=== PATIENT | male | born 1975 | race Caucasian/White ===

== ENCOUNTER 2019-03-28 16:24 | Emergency (ER) | payer OTHER ==
--- NOTE | 2019-03-28 16:44 | ER ---
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 Transition of ls4 care: patient was not received from another setting of care. Onset of symptoms was March 13, 2019. Risk Assessment: Do you want to hurt yourself or someone else? Patient reports no desire to harm self or others. Initial Sepsis Screen: Does the patient meet any 2 criteria? No. Patient's initial sepsis screen is negative. Does the patient have a suspected source of infection? No. Patient's initial sepsis screen is negative. Care prior to arrival: None. 16:32 Method Of Arrival: EMS: [facility] 16:32 Acuity: FREDERIC 4 ls4 Triage Assessment: 16:39 General: Appears in no apparent distress. uncomfortable, Behavior is calm, cooperative. ls4 Pain: Complains of pain in pelvis Pain currently is 8 out of 10 on a pain scale. Quality of pain is described as burning, tender, throbbing, Pain began. Neuro: No deficits noted. Cardiovascular: No deficits noted. Respiratory: No deficits noted. Derm: Skin is pink, warm \T\ dry. Rash noted that is draining pus, vesicular, on buttocks and pelvis. Musculoskeletal: No deficits noted. Historical: - Allergies: 16:37 Geodon; ls4 16:37 Haldol; ls4 16:37 Risperdal; ls4 - PMHx: 16:37 HIV; HERPES; SCHIZOAFFECTIVE; ls4 - PSHx: 16:37 Tonsillectomy; ls4 - Immunization history:: Adult Immunizations Last tetanus immunization: unknown. - Social history:: Smoking status: Patient uses tobacco products, smokes one-half pack cigarettes per day, Patient uses alcohol, weekly. - Ebola Screening: : Patient negative for fever greater than or equal to 101.5 degrees Fahrenheit, and additional compatible Ebola Virus Disease symptoms Patient denies exposure to infectious person Patient denies travel to an Ebola-affected area in the 21 days before illness onset No symptoms or risks identified at this time. Screenin:42 Abuse screen: Denies threats or abuse. Nutritional screening: No deficits noted. ls4 Tuberculosis screening: No symptoms or risk factors identified. Fall Risk None identified. Assessment: 16:41 General: Appears in no apparent distress. Neuro: No deficits noted. Cardiovascular: No ls4 deficits noted. Respiratory: No deficits noted. Derm: Skin is pink, warm \T\ dry. Rash noted that is draining pus, vesicular. Vital Signs: 16:39 BP 160 / 104; Pulse 78; Resp 16; Temp 98.6(O); Pulse Ox 99% on R/A; Pain 8/10; ls4 17:14 BP 148 / 78; Pulse 76; Resp 16; Pulse Ox 98% on R/A; Pain 6/10; ls4 ED Course: 16:31 Patient arrived in ED. ls4 16:32 Abner Amor NP is PHCP. pm1 16:32 Anibal Moreno MD is Attending Physician. pm1 16:34 Triage completed. ls4 16:39 Arm band placed on left wrist. Patient placed in an exam room. ls4 16:42 Patient has correct armband on for positive identification. Bed in low position. Call ls4 light in reach. Side rails up X 1. Verbal reassurance given. 16:42 No provider procedures requiring assistance completed. Patient did not have IV access ls4 during this emergency room visit. 16:46 Mee Barillas RN is Primary Nurse. ls4 Administered Medications: 17:02 Drug: [place] 5 mg-325 mg 1 tabs Route: PO; ls4 17:15 Follow up: Response: No adverse reaction; Marked relief of symptoms ls4 Outcome: 16:44 Discharge ordered by . pm1 17:14 Patient left the ED. ls4 17:14 Discharged to home ambulatory. ls4 17:14 Condition: good 17:14 Discharge instructions given to patient, Demonstrated understanding of instructions, follow-up care, medications, Prescriptions given X 3. Signatures: Abner Amor NP [employer]IN[employer] WELDER AND FABRICATOR pm1 Mee Barillas, RN RN ls4
--- NOTE | 2019-03-28 16:44 | EDPHYS ---
Physician Documentation [facility] Name: Bakari Mcintosh Age: 43 yrs Sex: Male : 1975 Arrival Date: 03/28/2019 Time: 16:31 Bed 24 Private MD: ED Physician Anibal Moreno HPI: 03/28 16:41 This 43 yrs old Male presents to ER via EMS with complaints of Rash. pm1 16:41 The patient's rash thought to be caused by an unknown cause. The rash is located on the pm1 groin. The rash can be described as vesicular, draining. Onset: The symptoms/episode began/occurred 1 month(s) ago. Associated signs and symptoms: Pertinent positives: painful lesions, Pertinent negatives: fever, itching. Severity of symptoms: in the emergency department the symptoms are worse. The patient has not experienced similar symptoms in the past, Patient reports history of herpes but has not had an outbreak before. Patient denies taking any medications for herpes. The patient has not recently seen a physician. Historical: - Allergies: 16:37 Geodon; ls4 16:37 Haldol; ls4 16:37 Risperdal; ls4 - PMHx: 16:37 HIV; HERPES; SCHIZOAFFECTIVE; ls4 - PSHx: 16:37 Tonsillectomy; ls4 - Immunization history:: Adult Immunizations Last tetanus immunization: unknown. - Social history:: Smoking status: Patient uses tobacco products, smokes one-half pack cigarettes per day, Patient uses alcohol, weekly. - Ebola Screening: : Patient negative for fever greater than or equal to 101.5 degrees Fahrenheit, and additional compatible Ebola Virus Disease symptoms Patient denies exposure to infectious person Patient denies travel to an Ebola-affected area in the 21 days before illness onset No symptoms or risks identified at this time. ROS: 16:41 Constitutional: Negative for fever, chills, and weight loss, Eyes: Negative for injury, pm1 pain, redness, and discharge, ENT: Negative for injury, pain, and discharge, Neck: Negative for injury, pain, and swelling, Cardiovascular: Negative for chest pain, palpitations, and edema, Respiratory: Negative for shortness of breath, cough, wheezing, and pleuritic chest pain, Abdomen/GI: Negative for abdominal pain, nausea, vomiting, diarrhea, and constipation, Back: Negative for injury and pain, : Negative for injury, bleeding, discharge, and swelling, MS/Extremity: Negative for injury and deformity. 16:41 Skin: Positive for rash, of the groin. Exam: 16:41 Constitutional: This is a well developed, well nourished patient who is awake, alert, pm1 and in no acute distress. Head/Face: Normocephalic, atraumatic. Eyes: Pupils equal round and reactive to light, extra-ocular motions intact. Lids and lashes normal. Conjunctiva and sclera are non-icteric and not injected. Cornea within normal limits. Periorbital areas with no swelling, redness, or edema. ENT: Nares patent. No nasal discharge, no septal abnormalities noted. Tympanic membranes are normal and external auditory canals are clear. Oropharynx with no redness, swelling, or masses, exudates, or evidence of obstruction, uvula midline. Mucous membranes moist. Neck: Trachea midline, no thyromegaly or masses palpated, and no cervical lymphadenopathy. Supple, full range of motion without nuchal rigidity, or vertebral point tenderness. No Meningismus. Chest/axilla: Normal chest wall appearance and motion. Nontender with no deformity. No lesions are appreciated. Cardiovascular: Regular rate and rhythm with a normal S1 and S2. No gallops, murmurs, or rubs. Normal PMI, no JVD. No pulse deficits. Respiratory: Lungs have equal breath sounds bilaterally, clear to auscultation and percussion. No rales, rhonchi or wheezes noted. No increased work of breathing, no retractions or nasal flaring. Abdomen/GI: Soft, non-tender, with normal bowel sounds. No distension or tympany. No guarding or rebound. No evidence of tenderness throughout. Back: No spinal tenderness. No costovertebral tenderness. Full range of motion. 16:41 MS/ Extremity: Pulses equal, no cyanosis. Neurovascular intact. Full, normal range of motion. 16:41 : Male external genitalia: lesion, of the groin, that is draining, painful, multiple vesicular lesions throughout the groin area. 16:41 Neuro: Orientation: is normal, Motor: is normal, moves all fours, Gait: is steady, at a normal pace, without difficulty. Vital Signs: 16:39 BP 160 / 104; Pulse 78; Resp 16; Temp 98.6(O); Pulse Ox 99% on R/A; Pain 8/10; ls4 17:14 BP 148 / 78; Pulse 76; Resp 16; Pulse Ox 98% on R/A; Pain 6/10; ls4 MDM: 16:35 Patient medically screened. pm1 16:41 Data reviewed: vital signs. Data interpreted: Pulse oximetry: on room air is 99 %. pm1 Interpretation: normal. Counseling: I had a detailed discussion with the patient and/or guardian regarding: the historical points, exam findings, and any diagnostic results supporting the discharge/admit diagnosis, the need for outpatient follow up, a family practitioner, to return to the emergency department if symptoms worsen or persist or if there are any questions or concerns that arise at home. 16:41 ED course: Patient denies prior herpes lesions despite history of herpes. Patient does pm1 not take any medications for herpes. Therefore I will give the patient Valtrex for initial episode. Administered Medications: 17:02 Drug: [place] 5 mg-325 mg 1 tabs Route: PO; ls4 17:15 Follow up: Response: No adverse reaction; Marked relief of symptoms ls4 Disposition: 17:38 Co-signature as Attending Physician, Anibal Moreno MD. rn Disposition: 03/28/19 16:44 Discharged to Home. 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 - Condition is Stable. - Discharge Instructions: Genital Herpes, Sexually Transmitted Disease. - Prescriptions for Valtrex 1 g Oral Tablet - take 1 tablet by ORAL route every 12 hours for 10 days; 20 tablet. Bactrim DS 800- 160 mg Oral Tablet - take 1 tablet by ORAL route every 12 hours for 10 days; 20 tablet. Tylenol- Codeine #3 300-30 mg Oral Tablet - take 2 tablets by ORAL route every 6 hours As needed; 20 tablet. - Medication Reconciliation Form, Thank You Letter, Antibiotic Education, Prescription Opioid Use form. - Follow up: Emergency Department; When: As needed; Reason: Worsening of condition. Follow up: Private Physician; When: 2 - 3 days; Reason: Recheck today's complaints, Continuance of care, Re-evaluation by your physician. - Problem is new. - Symptoms have improved. Signatures: Anibal Moreno MD MD rn Abner Amor NP [employer]WD[employer] MACHINE OPERATOR pm1 Mee Barillas RN RN ls4 Corrections: (The following items were deleted from the chart) 17:14 16:44 03/28/2019 16:44 Discharged to Home. Impression: Herpesviral infection of other ls4 male genital organs. Condition is Stable. Forms are Medication Reconciliation Form, Thank You Letter, Antibiotic Education, Prescription Opioid Use. Follow up: Emergency Department; When: As needed; Reason: Worsening of condition. Follow up: Private Physician; When: 2 - 3 days; Reason: Recheck today's complaints, Continuance of care, Re-evaluation by your physician. Problem is new. Symptoms have improved. pm1
[2019-03-28] MEDS ORDERED: HYDROCODONE/APAP 5/325 MG TAB ONE (17:11)
== END 2019-03-28 17:14 | disposition home or self-care (01) ==
LOC: ER 16:24
DX: A60.02 Herpesviral infection of other male genital organs (principal); F25.9 Schizoaffective disorder, unspecified; F17.210 Nicotine dependence, cigarettes, uncomplicated
CPT/HCPCS: 99283

== ENCOUNTER 2019-05-30 09:20 | Emergency (ER) | payer OTHER ==
--- OUTSIDE RECORDS SUMMARY | 2019-05-30 09:23 | XMS REPORT | Clinical Summary ---
:1975 Author Organization [facility] Address [address] [place] [id number] Care Team Providers Name Role Phone Unavailable Primary Care Provider Unavailable Allergies Active Allergy Reactions Severity Noted Date Comments No Known Allergies 08/12/2010 Medications Medication Sig Dispensed Refills Start Date End Date Status trifluoperazine Take 5 mg by 0 Active (STELAZINE) 5 mg tablet mouth 2 times daily. 1 by mouth 2 times daily benztropine (COGENTIN) Take 2 mg by 0 Active 2 mg tablet mouth 2 times daily. 1 by mouth 2 times daily loratadine (CLARITIN) Take 10 mg by 0 Active 10 mg tablet mouth daily. 1 by mouth daily as needed for allergies Active Problems Problem Noted Date Lump or mass in breast _ lt 09/09/2010 Refraction error 09/09/2010 Obesity 09/09/2010 Nicotine addiction 09/09/2010 Tattoo 09/09/2010 Acne 09/09/2010 Health maintenance examination 09/09/2010 Overview: PSA\Rectal Exam : 08/23 refused FOBT (50 + Annual):na Cholesterol (20 + every 5 yrs):ordered HgbA1C : na Microalbumin: na Last Td/Dtap: ordered Flu Vaccine (Annual): 07/24 Pneumovax: na Last PPD (yearly 1-35): 06/23 Diabetic Foot Exam (Annual):na Diabetic Eye Exam (Annual):na EKG (Over 40 yrs Old) None Schizo affective schizophrenia Bipolar disorder Encounters Date Type Specialty Care Team Description 11/26/2018 Emergency Emergency Medicine 11/26/2018 Travel after 05/29/2018 Immunizations Name Administration Dates Next Due Influenza Vaccine 08/04/2010 PPD 12/28/2011 Tdap Tetanus, diphtheria, acellular pertussis Vaccine 09/09/2010 Family History Medical History Relation Name Comments Unknown Fam Hx unknown Relation Name Status Comments Social History Tobacco Use Types Packs/Day Years Used Date Current Every Day Smoker Cigarettes 1 Alcohol Use Drinks/Week oz/Week Comments No Sex Assigned at Date Recorded Not on file Job Start Date Occupation Industry Not on file Not on file Not on file Travel History Travel Start Travel End No recent travel history available. Last Filed Vital Signs Vital Sign Reading Time Taken Comments Blood Pressure 160/97 11/26/2018 8:24 AM SENIOR QUANTITY SURVEYOR Pulse 74 11/26/2018 8:24 AM SENIOR QUANTITY SURVEYOR Temperature 36.4 C (97.5 F) 11/26/2018 8:24 AM SENIOR QUANTITY SURVEYOR Respiratory Rate 20 11/26/2018 8:24 AM SENIOR QUANTITY SURVEYOR Oxygen Saturation 99% 11/26/2018 8:24 AM SENIOR QUANTITY SURVEYOR Inhaled Oxygen Concentration - - Weight - - Height - - Body Mass Index - - Plan of Treatment Health Maintenance Due Date Last Done Comments IMM Influenza Seasonal Aug to January (>/=19 yrs) 08/14/2019 Results Not on fileafter 05/29/2018 Insurance Payer Benefit Plan / Subscriber ID Effective Phone Address Type Group Dates [employer] xxxxxxxx 2018-Prese [phone] [address] [facility] [address] [place] [address] MEDICARE MEDICARE PART A xxxxxxxxxx 05/14/2010-11/13 [phone] [address] [place] [address] [place] MED[place] [id number] QUALIFIED xxxxxxxxx 2011-Prese [phone] [address] [place] [id number] [place] [address]
--- OUTSIDE RECORDS SUMMARY | 2019-05-30 09:24 | XMS REPORT | Continuity of Care Document ---
:1975 Author Organization [employer] Care Team Providers Name Role Phone [employer] Unavailable Unavailable Problems Problem Status Onset Classification Date Comments Source Date Reported Unspecified Active Diagnosis 11/23/2016 Rosalino Gramajo fracture of Lock shaft of humerus, right arm, initial encounter for closed fracture Unspecified Active Diagnosis 11/23/2016 Rosalino C fracture of Lock shaft of humerus, left arm, initial encounter for closed fracture Essential Active Problem 11/23/2016 Rosalino Gramajo hypertension Lock Psychosis, Active Diagnosis 11/23/2016 Rosalion C unspecified Lock psychosis type Medications Medication Details Route Status Patient Ordering Order Source Instructions Provider Date Atenolol 1 tablet Orally Active 25 MG Orally Lock 10/26/20 Rosalino Gramajo Once a day 16 Lock Allergies, Adverse Reactions, Alerts Substance Category Reaction Severity Reaction Status Date Comments Source type Reported N.K.D.A. Adverse Info Not Adverse Active Rosalino Reaction Available Reaction 6 C Lock Immunizations No Data Provided for This Section Results No Data Provided for This Section Pathology Reports No Data Provided for This Section Diagnostic Reports No Data Provided for This Section Consultation Notes No Data Provided for This Section Discharge Summaries No Data Provided for This Section History and Physicals No Data Provided for This Section Vital Signs Vital Sign Value Date Comments Source Weight 201.2 10/26/2016 Rosalino Martinez Height 72 10/26/2016 Rosalino C Michelle Heart Rate 84 10/26/2016 Rosalino C Michelle Diastolic (mm Hg) 100 10/26/2016 Rosalino C Lock Systolic (mm Hg) 156 10/26/2016 Rosalino Martinez Encounters Location Location Encounter Encounter Reason Attending ADM DC Status Source Details Type Number For Provider Date Date Visit Rosalino Doherty FX FOREAMRS [id number] 10/26 10/26 Rosalino Martinez MD [id number] /2015 Rox Martinez [id number] Procedures No Data Provided for This Section Assessment and Plan No Data Provided for This Section Plan of Care No Data Provided for This Section Social History Social History Date Source Social History ElementQualifiersDate Reported 10/26/2016 Rosalino Martinez Tobacco Use: . Are you a: current smoker Oct 26, 2016 Use of recreational / street drugs? . Answer: No Oct 26, 2016 Do you drink alcohol? . Status: No Oct 26, 2016 Family History Value Date Source QualifierDescriptionCommentDate Reported 11/23/2016 Rosalino Martinez Maternal Grandmother Comment not available Oct 26, 2016 Paternal Grandmother Comment not available Oct 26, 2016 Siblings Comment not available Oct 26, 2016 Maternal Grandfather Comment not available Oct 26, 2016 Children Comment not available Oct 26, 2016 Family Hx of unknown Comment not available Oct 26, 2016 Father Comment not available Oct 26, 2016 Paternal Grandfather Comment not available Oct 26, 2016 Mother Comment not available Oct 26, 2016 Other: Comment not available Oct 26, 2016 Advance Directives No Data Provided for This Section Functional Status No Data Provided for This Section
--- OUTSIDE RECORDS SUMMARY | 2019-05-30 09:24 | XMS REPORT ---
:1975 Author [facility] Address [address] [place] [address] Care Team Providers Name Role Phone Unavailable Unavailable Unavailable Payers Payer Name Policy Type Policy Number Effective Date Expiration Date Problems This patient has no known problems. Allergies, Adverse Reactions, Alerts Allergy Name Allergy Status Severity Reaction(s) Onset Inactive Treating Comments Type Date Date Clinician grace RYAN Active [place] 2016-03 00:00:0 0 Medications This patient has no known medications. Encounters Start End Encounter Admission Attending Care Care Encounter Date/Time Date/Time Type Type Clinicians Facility Department ID 2018-11-26 2018-11-26 Emergency [facility] [id number] 08:23:00 08:23:00
--- OUTSIDE RECORDS SUMMARY | 2019-05-30 09:24 | XMS REPORT | Clinical Summary ---
:1975 Author Organization [facility] Address [address] [place] [address] Care Team Providers Name Role Phone Asked, No Pcp Primary Care Provider Unavailable Allergies Active Allergy Reactions Severity Noted Date Comments Ziprasidone Hcl Other (See Comments) 01/24/2017 Blurred Vision Haloperidol Other (See Comments) 01/24/2017 Muscle tightness Risperidone 01/24/2017 Medications Medication Sig Dispensed Refills Start Date End Date Status budesonide Take 2 mL (0.5 mg 60 mL 0 01/19/2019 02/18/2019 (PULMICORT) 0.5 mg/2 total) by mL nebulizer nebulization once solution daily for 30 days. chlorproMAZINE Take 1 tablet (50 60 tablet 0 01/18/2019 02/17/2019 (THORAZINE) 50 MG mg total) by mouth tabletIndications: 2 (two) times a Dyspnea, unspecified day for 30 days. type ipratropium-albutero Take 3 mL by 360 mL 0 01/18/2019 02/17/2019 l (DUO-NEB) 0.5-2.5 nebulization every mg/mL 6 (six) hours for nebulizerIndications 30 days. : Dyspnea, unspecified type nystatin Take 10 mL by 473 mL 0 01/18/2019 02/01/2019 (MYCOSTATIN) 100,000 mouth 4 (four) unit/mL suspension times a day for 14 days. Swish in mouth valACYclovir Take 1 tablet 24 tablet 0 01/18/2019 01/26/2019 (VALTREX) 1000 MG (1,000 mg total) tablet by mouth 3 (three) times a day before meals for 8 days. Active Problems Problem Noted Date HIV (human immunodeficiency virus infection) 01/16/2019 Schizophrenia 01/16/2019 Dyspnea 01/15/2019 Rash 01/15/2019 Encounters Date Type Specialty Care Team Description 01/26/2019 Intake Access N/A 01/20/2019 Emergency Emergency Medicine Eapriscila, Suicidal ideation MD Mayela (Primary Dx) 01/15/2019 - Hospital Encounter General Internal Javan Brown Dyspnea, unspecified type (Primary Dx); 01/18/2019 Medicine MD Murray HIV (human immunodeficiency virus infection) ([facility]); Hollie Vieira Cough; MD Randi Rash; Dehydration; Anemia, unspecified type 01/15/2019 Intake Access N/A after 05/29/2018 Social History Tobacco Use Types Packs/Day Years Used Date Current Every Day Smoker Alcohol Use Drinks/Week oz/Week Comments No Sex Assigned at Date Recorded Not on file Job Start Date Occupation Industry Not on file Not on file Not on file Travel History Travel Start Travel End No recent travel history available. Last Filed Vital Signs Vital Sign Reading Time Taken Blood Pressure 146/93 01/19/2019 11:47 PM [employer] Pulse 68 01/19/2019 11:47 PM [employer] Temperature 36.4 C (97.6 F) 01/19/2019 11:47 PM [employer] Respiratory Rate 16 01/19/2019 11:47 PM [employer] Oxygen Saturation 95% 01/19/2019 11:47 PM [employer] Inhaled Oxygen Concentration - - Weight 73.7 kg (162 lb 8 oz) 01/15/2019 10:41 PM [employer] Height 180.3 cm (5' 11") 01/19/2019 11:44 PM [employer] Body Mass Index 22.66 01/15/2019 1:47 PM [employer] Plan of Treatment Health Maintenance Due Date Last Done Comments INFLUENZA VACCINE 06/14/2019 Procedures Procedure Name Priority Date/Time Associated Comments Diagnosis URINE CULTURE STAT 01/20/2019 12:36 Results for this AM [employer] procedure are in the results section. ESTIMATED GFR STAT 01/20/2019 12:23 Results for this AM [employer] procedure are in the results section. URINALYSIS SCREEN AND STAT 01/20/2019 12:23 Results for this MICROSCOPY, WITH REFLEX AM [employer] procedure are in TO CULTURE the results section. URINE DRUGS OF ABUSE STAT 01/20/2019 12:23 Results for this SCREEN AM [employer] procedure are in the results section. SALICYLATE LEVEL STAT 01/20/2019 12:23 Results for this AM [employer] procedure are in the results section. ACETAMINOPHEN LEVEL STAT 01/20/2019 12:23 Results for this AM [employer] procedure are in the results section. ALCOHOL LEVEL, BLOOD STAT 01/20/2019 12:23 Results for this AM [employer] procedure are in the results section. T4, FREE STAT 01/20/2019 12:23 Results for this AM [employer] procedure are in the results section. THYROID STIMULATING STAT 01/20/2019 12:23 Results for this HORMONE AM [employer] procedure are in the results section. COMPREHENSIVE METABOLIC STAT 01/20/2019 12:23 Results for this PANEL AM [employer] procedure are in the results section. HC COMPLETE BLD COUNT STAT 01/20/2019 12:23 Results for this W/AUTO DIFF AM [employer] procedure are in the results section. HC COMPLETE BLD COUNT Routine 01/18/2019 5:30 Results for this W/AUTO DIFF AM [employer] procedure are in the results section. ESTIMATED GFR Routine 01/18/2019 12:00 Results for this AM [employer] procedure are in the results section. BASIC METABOLIC PANEL Routine 01/18/2019 12:00 Results for this AM [employer] procedure are in the results section. HERPES SIMPLEX VIRUS BY Routine 01/17/2019 5:00 Results for this PCR PM [employer] procedure are in the results section. AFB STAIN Routine 01/17/2019 1:20 Results for this PM [employer] procedure are in the results section. CRYPTOCOCCAL ANTIGEN Routine 01/17/2019 1:05 Results for this SCREEN PM [employer] procedure are in the results section. AFB CULTURE Routine 01/17/2019 12:20 Results for this PM [employer] procedure are in the results section. TB IN-TUBE QUANTIFERON Routine 01/17/2019 4:30 Results for this PLUS AM [employer] procedure are in the results section. ESTIMATED GFR Routine 01/17/2019 4:30 Results for this AM [employer] procedure are in the results section. HC COMPLETE BLD COUNT Routine 01/17/2019 4:30 Results for this W/AUTO DIFF AM [employer] procedure are in the results section. BASIC METABOLIC PANEL Routine 01/17/2019 4:30 Results for this AM [employer] procedure are in the results section. AFB STAIN Routine 01/16/2019 12:13 Results for this PM [employer] procedure are in the results section. GRAM STAIN Routine 01/16/2019 12:13 Results for this PM [employer] procedure are in the results section. SPUTUM CULTURE Routine 01/16/2019 12:13 Results for this PM [employer] procedure are in the results section. AFB CULTURE Routine 01/16/2019 11:13 Results for this AM [employer] procedure are in the results section. URINE DRUGS OF ABUSE Routine 01/16/2019 8:25 Results for this SCREEN AM [employer] procedure are in the results section. ESTIMATED GFR Routine 01/16/2019 5:08 Results for this AM [employer] procedure are in the results section. HC COMPLETE BLD COUNT Routine 01/16/2019 5:08 Results for this W/AUTO DIFF AM [employer] procedure are in the results section. BASIC METABOLIC PANEL Routine 01/16/2019 5:08 Results for this AM [employer] procedure are in the results section. HEMOGLOBIN A1C Routine 01/16/2019 5:08 Results for this AM [employer] procedure are in the results section. TROPONIN Timed 01/16/2019 12:48 Results for this AM [employer] procedure are in the results section. CYTOMEGALOVIRUS BY PCR Routine 01/16/2019 12:31 Results for this AM [employer] procedure are in the results section. POC GLUCOSE Routine 01/15/2019 11:55 Results for this PM [employer] procedure are in the results section. HC COMPLETE BLD COUNT Timed 01/15/2019 10:03 Results for this W/AUTO DIFF PM [employer] procedure are in the results section. B NATRIURETIC PEPTIDE Timed 01/15/2019 10:03 Results for this PM [employer] procedure are in the results section. CYTOMEGALOVIRUS AB, IGM Routine 01/15/2019 8:48 Results for this PM [employer] procedure are in the results section. CYTOMEGALOVIRUS AB, IGG Routine 01/15/2019 8:48 Results for this PM [employer] procedure are in the results section. HEPATITIS C ANTIBODY Routine 01/15/2019 8:38 Results for this PM [employer] procedure are in the results section. HEPATITIS B CORE Routine 01/15/2019 8:37 Results for this ANTIBODY TOTAL PM [employer] procedure are in the results section. HEPATITIS B SURFACE Routine 01/15/2019 8:37 Results for this ANTIBODY PM [employer] procedure are in the results section. HEPATITIS B SURFACE Routine 01/15/2019 8:37 Results for this ANTIGEN PM [employer] procedure are in the results section. XR CHEST 1 VW PORTABLE STAT 01/15/2019 8:28 Results for this PM [employer] procedure are in the results section. ESTIMATED GFR Routine 01/15/2019 8:27 Results for this PM [employer] procedure are in the results section. COMPREHENSIVE METABOLIC Routine 01/15/2019 8:27 Results for this PANEL PM [employer] procedure are in the results section. LDH Routine 01/15/2019 8:27 Results for this PM [employer] procedure are in the results section. SYPHILIS TREPONEMAL IGG Routine 01/15/2019 8:25 Results for this PM [employer] procedure are in the results section. VARICELLA ZOSTER BY PCR Routine 01/15/2019 8:12 Results for this PM [employer] procedure are in the results section. ESTIMATED GFR Timed 01/15/2019 8:10 Results for this PM [employer] procedure are in the results section. MAGNESIUM LEVEL Timed 01/15/2019 8:10 Results for this PM [employer] procedure are in the results section. COMPREHENSIVE METABOLIC Timed 01/15/2019 8:10 Results for this PANEL PM [employer] procedure are in the results section. PHOSPHORUS LEVEL Timed 01/15/2019 8:10 Results for this PM [employer] procedure are in the results section. LIPASE LEVEL Timed 01/15/2019 8:10 Results for this PM [employer] procedure are in the results section. HIV QUANTITATIVE BY PCR Routine 01/15/2019 8:10 Results for this PM [employer] procedure are in the results section. CD 4/8 SUBSET Routine 01/15/2019 8:10 Results for this PM [employer] procedure are in the results section. LACTIC ACID LEVEL Timed 01/15/2019 8:10 Results for this PM [employer] procedure are in the results section. TROPONIN Timed 01/15/2019 8:10 Results for this PM [employer] procedure are in the results section. CT CHEST W CONTRAST STAT 01/15/2019 6:01 Results for this ABDOMEN W CONTRAST PM [employer] procedure are in PELVIS W CONTRAST the results section. ECG 12-LEAD STAT 01/15/2019 4:57 Results for this PM [employer] procedure are in the results section. RESPIRATORY PATHOGEN Routine 01/15/2019 4:49 Results for this PANEL PM [employer] procedure are in the results section. BLOOD CULTURE, AEROBIC & Routine 01/15/2019 4:37 Results for this ANAEROBIC PM [employer] procedure are in the results section. HIV 1/2 AB STAT 01/15/2019 4:19 Results for this DIFFERENTIATION PM [employer] procedure are in the results section. MANUAL DIFFERENTIAL STAT 01/15/2019 4:19 Results for this PM [employer] procedure are in the results section. ESTIMATED GFR STAT 01/15/2019 4:19 Results for this PM [employer] procedure are in the results section. LACTIC ACID LEVEL Timed 01/15/2019 4:19 Results for this PM [employer] procedure are in the results section. TROPONIN STAT 01/15/2019 4:19 Results for this PM [employer] procedure are in the results section. B NATRIURETIC PEPTIDE STAT 01/15/2019 4:19 Results for this PM [employer] procedure are in the results section. HIV AG/AB COMBINATION STAT 01/15/2019 4:19 Results for this PM [employer] procedure are in the results section. SYPHILIS TREPONEMAL IGG STAT 01/15/2019 4:19 Results for this PM [employer] procedure are in the results section. COMPREHENSIVE METABOLIC STAT 01/15/2019 4:19 Results for this PANEL PM [employer] procedure are in the results section. CBC WITH PLATELET AND STAT 01/15/2019 4:19 Results for this DIFFERENTIAL PM [employer] procedure are in the results section. BLOOD CULTURE, AEROBIC & Routine 01/15/2019 4:19 Results for this ANAEROBIC PM [employer] procedure are in the results section. after 05/29/2018 Results Urine culture (01/20/2019 12:36 AM [employer]) Urine culture SEE COMMENTComment: [facility] Bacteriuria screen HOSPITAL negative. Specimen Performing Organization Address City/[facility] Phone Number [facility] DEPARTMENT OF PATHOLOGY AND [address] [place] [address] GENOMIC MEDIC[address] [address] Urinalysis screen and microscopy, with reflex to culture (01/20/2019 12:23 AM [employer]) Specimen site Clean catch [facility] Color, UA Straw [facility] Appearance, UA Clear [facility] Specific gravity, UA 1.014 1.001 - 1.035 [facility] pH, UA 6.0 5.0 - 8.5 [facility] Protein, UA Negative Negative [facility] Glucose, UA Negative Negative [facility] Ketones, UA Negative Negative [facility] Bilirubin, UA Negative Negative [facility] Blood, UA Negative Negative [facility] Nitrite, UA Negative Negative [facility] Urobilinogen, UA <2.0 <2.0 [facility] Leukocyte esterase, Negative Negative [facility] Epithelial cells, UA 1 /HPF [facility] WBC, UA <1 0 - 1 /HPF [facility] RBC, UA 1 0 - 5 /HPF [facility] Bacteria, UA Few None seen [facility] Yeast, UA None seen [facility] Yeast with None seen [facility] pseudohyphae, HOSPITAL Specimen Urine Performing Organization Address City/[facility]/Zipcode Phone Number [facility] DEPARTMENT OF PATHOLOGY AND [address] [place] [phone] [address] Estimated GFR (01/20/2019 12:23 AM [employer])Only the most recent of7 resultswithin the time period is included. Estimated GFR >=90 mL/min/1.73 [facility] Comment: HOSPITAL CatergoryUnitsInterpretation G1 >=90 Normal or high G2 60-89Mildly decreased D1m35-45Gqdshw to moderately decreased [id number] to severely decreased G4 15-29Severely decreased G5 <15Kidney failure The eGFR was calculated using the Chronic Kidney Disease Epidemiology Collaboration (CKD-EPI) equation. Interpretation is based on recommendations of the National Kidney Foundation-Kidney Disease Outcomes Quality Initiative (NKF-KDOQI) published in 2014. Specimen Plasma specimen Performing Organization Address City/[facility] Phone Number [facility] DEPARTMENT OF PATHOLOGY AND [address] [place] [phone] Urine drugs of abuse screen (01/20/2019 12:23 AM [employer])Only the most recent of2 resultswithin the time period is included. Amphetamine screen, Positive (A) [place] urine [facility] Barbiturate screen, Negative [place] urine [facility] Benzodiazepine Negative [place] screen, urine [facility] Cannabinoid screen, Negative [place] urine [facility] Cocaine screen, urine Positive (A) [facility] Methadone metabolite Negative [place] (EDDP), urine [facility] Opiates screen, urine Negative [facility] Oxycodone screen, Negative [place] urine [facility] Phencyclidine screen, Negative [place] urine [facility] Tricyclic screen, Negative [place] urine Comment: [facility] Drug screen minimum concentration of detectability HOSPITAL Zblbamelairp3885 ng/mL Barbiturates 200 ng/mL Svptzpmvufsmoik913 ng/mL Rsakblz350 ng/mL Yqcjddobq373 ng/mL Azhukmj258 ng/mL Smjyioiqw934 ng/mL Phencyclidine 25 ng/mL Rhivbknvltgf81 ng/mL Zsjokvvijd4490 ng/mL Results are from screening tests and should only be used for medical evaluation. Drug testing for legal purposes requires definitive (or confirmatory) testing methods, which are available upon request. Contact the laboratory if definitive testing is required. Specimen Urine Performing Organization Address City/State/Zipcode Phone Number [facility] DEPARTMENT OF PATHOLOGY AND [address] [place], [place] [id number] [place] [phone] CBC with platelet and differential (01/20/2019 12:23 AM [employer])Only the most recent of6 resultswithin the time period is included. WBC 12.47 (H) 4.50 - 11.00 [facility] k/uL HOSPITAL RBC 3.86 (L) 4.40 - 6.00 [facility] m/uL [facility] HGB 11.5 (L) 14.0 - 18.0 [facility] gdL [facility] HCT 35.6 (L) 41.0 - 51.0 % [facility] MCV 92.2 82.0 - 100.0 [facility] MCH 29.8 27.0 - 34.0 pg [facility] MCHC 32.3 31.0 - 37.0 [facility] RDW - SD 44.1 37.0 - 55.0 fL [facility] MPV 9.1 8.8 - 13.2 fL [facility] Platelet count 387 150 - 400 k/uL [facility] Nucleated RBC 0.00 /100 WBC [facility] Neutrophils 68.1 39.0 - 69.0 % [facility] Lymphocytes 22.0 (L) 25.0 - 45.0 % [facility] Monocytes 5.8 0.0 - 10.0 % [facility] Eosinophils 1.6 0.0 - 5.0 % [facility] Basophils 0.3 0.0 - 1.0 % [facility] Immature granulocytes 2.2 0.0 - 1.0 % [facility] (H)Comment: HOSPITAL "Immature granulocytes" (promyelocytes , myelocytes, metamyelocytes ) Specimen Blood Performing Organization Address City/State/Zipcode Phone Number [facility] DEPARTMENT OF PATHOLOGY AND [address] [place] [address] [address] Thyroid stimulating hormone (01/20/2019 12:23 AM [employer]) TSH 1.76 0.27 - 4.20 uIU/mL [facility] Specimen Plasma specimen Performing Organization Address [facility] Phone Number [facility] DEPARTMENT OF PATHOLOGY AND [address] [place] [phone] [place] [address] T4, free (01/20/2019 12:23 AM [employer]) T4, free 1.5 0.9 - 1.7 ng/dL [facility] Specimen Plasma specimen Performing Organization Address [facility] Phone Number [facility] DEPARTMENT OF PATHOLOGY AND [address] [place] [phone] [address] Alcohol level, blood (01/20/2019 12:23 AM [employer]) [facility] Signature Alcohol None Detected mg/dL [facility] Comment: HOSPITAL Normal None Detected Legal Intoxication in [place]80 mg/dL (0.08%) - Whole Blood Toxic Jblymsehcoxte312 mg/dL (0.2%) Potentially Ryjrm001 - 500 mg/dL (0.35 - 0.5%) Alcohol percent None Detected % [facility] Specimen Plasma specimen Performing Organization Address [facility] Phone Number [facility] DEPARTMENT OF PATHOLOGY AND [address] [place] [phone] [place] [phone] Acetaminophen level (01/20/2019 12:23 AM [employer]) Acetaminophen level <5.0 (L) 10.0 - 30.0 [facility] Comment: ug/mL HOSPITAL Therapeutic 10-30 ug/mL Possible Toxicity 150-200 ug/mL Probable Toxicity >200 ug/mL Specimen Plasma specimen Performing Organization Address [facility] Phone Number [facility] DEPARTMENT OF PATHOLOGY AND [address] [place] [phone] [address] Salicylate level (01/20/2019 12:23 AM [employer]) Salicylate <3.0 3.0 - 30.0 mg/dL [facility] Specimen Plasma specimen Performing Organization Address [facility] Phone Number [facility] DEPARTMENT OF PATHOLOGY AND [address] [place] [address] [place] [address] [place] [address] Comprehensive metabolic panel (01/20/2019 12:23 AM [employer])Only the most recent of4 resultswithin the time period is included. Sodium 135 135 - 148 [facility] mEq/L HOSPITAL Potassium 4.3 3.5 - 5.0 [facility] mEq/L [facility] Chloride 99 98 - 112 mEq/L [facility] CO2 26 24 - 31 mEq/L [facility] Anion gap 10@ANIO 7 - 15 mEq/L [facility] BUN 17 6 - 20 mg/dL [facility] Creatinine 0.75 0.70 - 1.20 [facility] mg/dL [facility] Glucose 97 65 - 99 mg/dL [facility] Calcium 10.0 8.3 - 10.2 [facility] mg/dL [facility] Protein 9.0 (H) 6.3 - 8.3 g/dL [facility] Comment: HOSPITAL 4.6-7.0 g/dL 1 week 4.4-7.6 g/dL 7 months-1year5.1-7.3 g/dL 1-2 years5.6-7.5 g/dL >3 years6.0-8.0 g/dL 18-150 6.3-8.3 g/dL Albumin 3.5 3.5 - 5.0 g/dL [facility] A/G ratio 0.6 (L) 0.7 - 3.8 [facility] Alkaline phosphatase 98 40 - 129 U/L [facility] AST 30 10 - 50 U/L [facility] ALT 27 5 - 50 U/L [facility] Total bilirubin <0.2 0.0 - 1.2 [facility] mg/dL [facility] Specimen Plasma specimen Performing Organization Address City/State/Zipcode Phone Number [facility] DEPARTMENT OF PATHOLOGY AND [address] [address] Basic metabolic panel (01/18/2019 12:00 AM [employer])Only the most recent of3 resultswithin the time period is included. Sodium 139 135 - 148 mEq/L [facility] Potassium 4.2 3.5 - 5.0 mEq/L [facility] Chloride 104 98 - 112 mEq/L [facility] CO2 25 24 - 31 mEq/L [facility] Anion gap 10@ANIO 7 - 15 mEq/L [facility] BUN 11 6 - 20 mg/dL [facility] Creatinine 0.76 0.70 - 1.20 mg/dL [facility] Glucose 97 65 - 99 mg/dL [facility] Calcium 8.6 8.3 - 10.2 mg/dL [facility] [facility] Specimen Plasma specimen Performing Organization Address City/[facility] Phone Number [facility] DEPARTMENT OF PATHOLOGY AND [address] [place] [address] Herpes simplex virus by PCR (01/17/2019 5:00 PM STRUCTURAL STEEL PAINTER) Pathologist [facility] Herpes virus, PCR Not-Detected Not-Detected [facility] Herpes virus, PCR See link below [facility] for PDF Lab HOSPITAL ReportComment: Specimen Performing Organization Address [facility] Phone Number [facility] DEPARTMENT OF PATHOLOGY AND [address] [place] [address] AFB stain (01/17/2019 1:20 PM STRUCTURAL STEEL PAINTER)Only the most recent of2 resultswithin the time period is included. Pathologist [facility] AFB stain No acid fast bacilli (AFB) seen. MICHAEL KAUR Comment: HOSPITAL Specimen Information Specimen Source: Sputum Specimen Site: Expectorated Specimen Sputum - Expectorated Performing Organization Address City/[facility] Phone Number [facility] DEPARTMENT OF PATHOLOGY AND [address] [place] [address] Cryptococcal antigen, screen (01/17/2019 1:05 PM STRUCTURAL STEEL PAINTER) Pathologist [facility] Cryptococcal Ag Negative - No Cryptococcus antigen detected. MICHAEL KAUR Comment: HOSPITAL Specimen Information Specimen Source: Serum Specimen Site: Not otherwise specified Specimen Serum - Not otherwise specified Performing Organization Address City/[facility] Phone Number [facility] DEPARTMENT OF PATHOLOGY AND [address] [place] [address] AFB culture (01/17/2019 12:20 PM STRUCTURAL STEEL PAINTER)Only the most recent of2 resultswithin the time period is included. AFB culture No growth after 6 weeks of incubation. [facility] isolate Comment: HOSPITAL Specimen Information Specimen Source: Sputum Specimen Site: Expectorated Specimen Sputum - Expectorated Performing Organization Address City/State/Zipcode Phone Number [facility] DEPARTMENT OF PATHOLOGY AND [address] [place] [address] GENOMIC MEDICINE [facility] [address] [place] [address] TB IN-TUBE Quantiferon plus (01/17/2019 4:30 AM STRUCTURAL STEEL PAINTER) Quantitative NIL 0.110 IU/mL [facility] Quantitative TB1 0.100 IU/mL [facility] Quantitative TB2 0.110 IU/mL [facility] Quantitative mitogen >10.000 IU/mL [facility] Quant TB1-NIL -0.010 IU/mL [facility] Quant TB2-NIL 0.000 IU/mL [facility] Quantitative >10.000 IU/mL [facility] mitogen-NIL REF LAB Qualitative Negative [facility] interpretation Comment: REF LAB Results are POSITIVE when either of the following conditions are met: 1.Nil <=8.0 AND TB1-Nil >=0.35 AND >=25% of Nil (TB2 is any value) or 2.Nil <=8.0 AND TB2-Nil >=0.35 AND >=25% of Nil (TB1 is any value) Results are NEGATIVE when all of the following conditions are met: 1.Nil <=8.0 2.TB1-Nil and TB2-Nil < 0.35 or [>=0.35 AND < 25% of Nil] 3.Mitogen-Nil >=0.50 Results are INDETERMINATE under either of the following conditions: 1a.Nil <=8.0 AND Mitogen-Nil < 0.50 AND 1b 1b.Both TB1-Nil AND TB2-Nil < 0.35 or [>=0.35 AND <25% of Nil] 2.Nil > 8.0 Warnings and Limitations 1)A negative QFT-Plus result does not preclude the possibility of M. tuberculosis infection or tuberculosis disease: False-negative results can be due to stage of infection (e.g., specimen obtained prior to the development of cellular immune response), co-morbid conditions that affect immune function, incorrect handling of the blood collection tubes following venipuncture, incorrect performance of the assay, or other individual immunological variables. Heterophile antibodies or non-specific IFN-gamma production from other inflammatory conditions may mask specific responses to ESAT-6 or CFP-10 peptides. 2)A positive QFT-Plus result should not be the sole or definitive basis for determining infection with M. tuberculosis. Incorrect performance of the assay may cause false-positive QFT-Plus results. A positive QFT-Plus result should be followed by further medical evaluation for active TB disease (e.g., Acid Fast Bacilli smear and culture, chest X-ray). 3)While ESAT-6 and CFP-10 are absent from all BCG strains and from most known nontuberculous mycobacteria, it is possible that a positive QFT-Plus result may be due to infection by M. kansasii, M. szulgai, or M. marinum. If such infections are suspected, alternative tests should be performed. 4)A false-negative QFT-Plus result can be caused by incorrect blood sample collection or improper handling of the specimen affecting lymphocyte function. Please refer to Specimen Collection and Handling section, page 17, for correct handling of the blood specimens. Delay in incubation may cause false negative or indeterminate results, and other technical parameters may affect ability to detect a significant IFN-gamma response. 5)The effect of lymphocyte count on reliability of QFT-Plus results is unknown. Lymphocyte counts may vary over time for any individual person, and from person to person. The minimum number of lymphocytes required for a reliable test result has not been established and may also be variable. 6)A positive QFT-Plus result can suggest and support the diagnosis of tuberculosis disease. ESAT-6 and CFP-10 are present in M. tuberculosis, but infections by other mycobacteria, including M. kansasii, M. szulgai, and M.marinum may also cause positive results. Other diagnostic evaluations (e.g., AFB smear and culture, chest X-ray) besides QFT-Plus are needed to confirm tuberculosis disease. 7)The predictive value of a negative QFT-Plus result in immunosuppressed persons has not been determined. Specimen Blood Performing Organization Address City/[facility]/Zipcode Phone Number [facility] DEPARTMENT OF PATHOLOGY AND [address] [place] [address] [facility] Sputum culture (01/16/2019 12:13 PM STRUCTURAL STEEL PAINTER) Sputum culture Normal oral kira isolated. [facility] isolate Comment: HOSPITAL Specimen Information Specimen Source: Sputum Specimen Site: Expectorated Specimen Sputum - Expectorated Performing Organization Address City/[facility]/Zipcode Phone Number [facility] DEPARTMENT OF PATHOLOGY AND [address] [place] [address] Gram stain (01/16/2019 12:13 PM STRUCTURAL STEEL PAINTER) Gram stain isolate Moderate WBC's [facility] No organisms seen HOSPITAL Comment: Specimen Information Specimen Source: Sputum Specimen Site: Expectorated Specimen Sputum - Expectorated Performing Organization Address [facility] Phone Number [facility] DEPARTMENT OF PATHOLOGY AND [address] [place] [address] Hemoglobin A1c (01/16/2019 5:08 AM STRUCTURAL STEEL PAINTER) Hemoglobin A1C 5.9 (H) 4.0 - 5.6 % [facility] Comment: HOSPITAL HbA1c cutoffs for diagnosing diabetes: 4.0% - 5.6%=normal 5.7% - 6.4%=increased risk for diabetes (prediabetes) >=6.5%=diabetes Goals for glycemic control (ADA 2016) < 7.0%Target for non adults with diabetes. More or less stringent targets may be appropriate for individual patients. <7.5% Target for Children and adolescents with type 1 diabetes. Specimen Blood Performing Organization Address City/[facility]/Zipcode Phone Number [facility] DEPARTMENT OF PATHOLOGY AND [address] [place] [address] Troponin (01/16/2019 12:48 AM STRUCTURAL STEEL PAINTER)Only the most recent of3 resultswithin the time period is included. Troponin <0.30 0.00 - 0.30 [facility] Comment: ng/mL HOSPITAL 0.30 - 1.49 ng/mlMay indicate increased risk of acute coronary syndrome. >=1.5 ng/mlConsistent with acute myocardial infarction. The diagnostic value of a single normal or non-diagnostic result is questionable.Serial samples at 2-6 hour intervals are required to rule out acute myocardial injury. Specimen Plasma specimen Performing Organization Address City/[facility]/Zipcode Phone Number [facility] DEPARTMENT OF PATHOLOGY AND [address] [place] [address] Cytomegalovirus by PCR (01/16/2019 12:31 AM STRUCTURAL STEEL PAINTER) [facility] Cytomegalovirus by PCR Not-Detected Not-Detected [facility] IU/mL [facility] Cytomegalovirus by PCR See link [facility] below for PDF HOSPITAL Lab ReportComment : Specimen Performing Organization Address [facility] Phone Number [facility] DEPARTMENT OF PATHOLOGY AND [address] [place] [address] POC glucose (01/15/2019 11:55 PM STRUCTURAL STEEL PAINTER) [facility] POC glucose 132 (H) 65 - 99 mg/dL [facility] Comment: HOSPITAL [facility] Notified RN Meter ID: [id number] Crystal Grinder: Edwin Swenson Specimen Performing Organization Address City/[facility] Phone Number [facility] DEPARTMENT OF PATHOLOGY AND [address] [place] [address] B natriuretic peptide (01/15/2019 10:03 PM STRUCTURAL STEEL PAINTER)Only the most recent of2 resultswithin the time period is included. [facility] BNP 54 0 - 100 pg/mL [facility] Specimen Narrative Performed At GLU results called to and read back by [facility] DEPARTMENT OF PATHOLOGY AND [facility] BERYL HUYNH/LarySW at23:17 MEDICINE 01/15/2019 by EP/SCL Performing Organization Address [facility]/Zipcode Phone Number [facility] DEPARTMENT OF PATHOLOGY AND [address] [place] [address] Cytomegalovirus Ab, IgM (01/15/2019 8:48 PM STRUCTURAL STEEL PAINTER) [facility] Cytomegalovirus Ab, IgM Negative Negative [facility] Specimen Serum Performing Organization Address City/State/Zipcode Phone Number [facility] DEPARTMENT OF PATHOLOGY AND [address] [place] [phone] Cytomegalovirus Ab, IgG (01/15/2019 8:48 PM STRUCTURAL STEEL PAINTER) Pathologist [facility] Cytomegalovirus Ab, IgG Positive (A) Negative [facility] Comment: HOSPITAL Positive; IgG antibody to CMV detected which may indicate exposure to CMV infection. Specimen Serum Performing Organization Address City/State/Zipcode Phone Number [facility] DEPARTMENT OF PATHOLOGY AND [address] [place] [phone] Hepatitis C antibody (01/15/2019 8:38 PM STRUCTURAL STEEL PAINTER) Pathologist [facility] Hepatitis C Ab Non-reactive Non-reactive [facility] Specimen Blood Performing Organization Address City/[facility]/Zipcode Phone Number [facility] DEPARTMENT OF PATHOLOGY AND [address] [place] [phone] Hepatitis B core antibody total (01/15/2019 8:37 PM STRUCTURAL STEEL PAINTER) Pathologist [facility] Hepatitis B core Non-reactive Non-reactive [facility] Specimen Blood Performing Organization Address City/State/Zipcode Phone Number [facility] DEPARTMENT OF PATHOLOGY AND [address] [place] [phone] Hepatitis B surface antibody (01/15/2019 8:37 PM STRUCTURAL STEEL PAINTER) Pathologist [facility] Hepatitis B surface Non-reactive Non-reactive [facility] Specimen Blood Performing Organization Address City/State/Zipcode Phone Number [facility] DEPARTMENT OF PATHOLOGY AND [address] [place] [address] Hepatitis B surface antigen (01/15/2019 8:37 PM STRUCTURAL STEEL PAINTER) Pathologist [facility] Hepatitis B surface Non-reactive Non-reactive [facility] Specimen Blood Performing Organization Address City/State/Zipcode Phone Number [facility] DEPARTMENT OF PATHOLOGY AND [address] [place], [place] [address] [place] [address] XR Chest 1 Vw Portable (01/15/2019 8:28 PM STRUCTURAL STEEL PAINTER) Specimen Narrative Performed At EXAMINATION:XR CHEST 1 VW PORTABLE HM [facility] CLINICAL HISTORY:infiltrates COMPARISON:None IMPRESSION: 1. The heart and pulmonary vasculature are within normal limits. 2. No infiltrate or effusion is demonstrated. 3. There is no acute osseous pathology. CONCLUSION: NO RADIOGRAPHIC EVIDENCE OF ACUTE CARDIOPULMONARY ABNORMALITY. [id number] Procedure Note Hm Interface, Radiology Results Incoming - 01/15/2019 8:41 PM STRUCTURAL STEEL PAINTER EXAMINATION: XR CHEST 1 VW PORTABLE CLINICAL HISTORY: infiltrates COMPARISON: None IMPRESSION: 1. The heart and pulmonary vasculature are within normal limits. 2. No infiltrate or effusion is demonstrated. 3. There is no acute osseous pathology. CONCLUSION: NO RADIOGRAPHIC EVIDENCE OF ACUTE CARDIOPULMONARY ABNORMALITY. [id number] Performing Organization Address City/[facility]/Zipcode Phone Number [facility] [address] [place] [phone] LDH (01/15/2019 8:27 PM STRUCTURAL STEEL PAINTER) Pathologist [facility] LDH 166 87 - 225 U/L [facility] Specimen Plasma specimen Performing Organization Address City/[facility] Phone Number [facility] DEPARTMENT OF PATHOLOGY AND [address] [place] [phone] [address] Syphilis treponemal IgG (01/15/2019 8:25 PM STRUCTURAL STEEL PAINTER)Only the most recent of2 resultswithin the time period is included. Pathologist [facility] Syphilis Non-reactiveComment Non-reactive [facility] treponemal IgG : Non-reactive: No HOSPITAL serological evidence of Syphilis infection Specimen Serum Performing Organization Address [facility] Phone Number [facility] DEPARTMENT OF PATHOLOGY AND [address] [place] [phone] [address] Varicella zoster by PCR (01/15/2019 8:12 PM STRUCTURAL STEEL PAINTER) Pathologist [facility] VZV result Not-Detected Not-Detected [facility] copies/mL [facility] Varicella zoster, See link below [facility] pcr for PDF Lab HOSPITAL ReportComment: Specimen Performing Organization Address City/[facility] Phone Number [facility] DEPARTMENT OF PATHOLOGY AND [address] HIV quantitative by PCR (01/15/2019 8:10 PM STRUCTURAL STEEL PAINTER) Pathologist [facility] HIV quantitative, 11,822 (A) Not-Detected [facility] PCR copies/mL [facility] HIV quantitative, See link below [facility] PCR for PDF Lab HOSPITAL ReportComment: Specimen Blood Performing Organization Address City/State/Zipcode Phone Number [facility] DEPARTMENT OF PATHOLOGY AND [address] [place] [address] CD 4/8 subset (01/15/2019 8:10 PM STRUCTURAL STEEL PAINTER) Pathologist [facility] CD3% 75 57 - 85 % [facility] CD3 absolute count 505 (L) 544 - 2,501 ul [facility] CD4% 34 (L) 37 - 57 % [facility] CD4 absolute count 229 (L) 488 - 1,340 ul [facility] CD8% 39 13 - 40 % [facility] CD8 absolute count 261 136 - 937 ul [facility] CD4/CD8 ratio 0.87 0.8 - 2.9 [facility] 4/8 subset See link below [facility] for PDF Lab HOSPITAL ReportComment: Specimen Blood Performing Organization Address City/[facility] Phone Number [facility] DEPARTMENT OF PATHOLOGY AND [address] [place] [address] Phosphorus level (01/15/2019 8:10 PM STRUCTURAL STEEL PAINTER) Phosphorus 4.1 2.4 - 4.5 mg/dL [facility] Specimen Plasma specimen Performing Organization Address City/[facility]/Zipcode Phone Number [facility] DEPARTMENT OF PATHOLOGY AND [address] [place] [address] Magnesium level (01/15/2019 8:10 PM STRUCTURAL STEEL PAINTER) Magnesium 2.6 1.6 - 2.6 mg/dL [facility] Specimen Plasma specimen Performing Organization Address City/[facility] Phone Number [facility] DEPARTMENT OF PATHOLOGY AND [address] [place] [id number] [place] [phone] Lipase level (01/15/2019 8:10 PM STRUCTURAL STEEL PAINTER) Lipase 19 13 - 60 U/L [facility] Specimen Plasma specimen Performing Organization Address [facility] Phone Number [facility] DEPARTMENT OF PATHOLOGY AND [address] [place] [address] Lactic acid level (01/15/2019 8:10 PM STRUCTURAL STEEL PAINTER)Only the most recent of2 resultswithin the time period is included. Lactic acid 0.8 0.5 - 2.2 mmol/L [facility] Specimen Blood Performing Organization Address [facility] Phone Number [facility] DEPARTMENT OF PATHOLOGY AND [address] [place] [address] CT Chest W Contrast Abdomen W Contrast Pelvis W Contrast (01/15/2019 6:01 PM STRUCTURAL STEEL PAINTER) Specimen Narrative Performed At EXAMINATION:CT CHEST W CONTRAST ABDOMEN W CONTRAST PELVIS W CONTRAST [facility] CLINICAL HISTORY:Untreated HIV. External abscesses. TECHNIQUE:Multi-detector computed axial tomography (CAT) of the chest, abdomen, and pelvis was performed with IV iodinated contrast. Axial maximum intensity projections of the chest, and sagittal and coronal computerized reformatted images of the body were created at a workstation and archived for review. DOSE REDUCTION: CT imaging was performed with iterative reconstruction technique and/or automated exposure control to reduce radiation dose. COMPARISON:None. IMPRESSION: 1.Bibasilar bronchitis and irregular pleural nodules are most likely atypical infectious in etiology. Clinical correlation and follow-up until resolution recommended. 2.Bilateral axillary, iliac, and inguinal lymphadenopathy is most likely secondary to HIV infection. 3. Foci of skin thickening and nodularity concordant with the provided history of skin infection. FINDINGS: CHEST: Mild patchy bronchiolitis in the right middle lobe and basilar segments of the left lower lobe are most likely secondary to atypical infection. Similarly, a 1.3 cm irregular solid pulmonary nodule in the left lower lobe and small spiculated focus in the right lower lobe are also likely atypical infectious. Mild upper lung predominant paraseptal emphysema. No pleural effusion. Heart is normal in size. No pericardial effusion. Aorta, arch great vessels, pulmonary artery, and SVC are unremarkable. Axillary lymph nodes are increased in number and several are mildly enlarged. Calcified mediastinal lymph nodes are consistent with a history of chronic granulomatous disease. No mediastinal mass, incidental thyroid nodule, or abnormality of the esophagus. ABDOMEN: Liver, spleen, pancreas, adrenals, and kidneys are unremarkable. Gallbladder is normal and the pancreaticobiliary system is nondistended. No evidence of obstruction or inflammation in the GI tract. Normal appendix. Mild atherosclerosis of the aorta. Superior mesenteric artery and portal venous system are patent. No adenopathy, free fluid, or fluid collection. PELVIS: Several mildly enlarged bilateral iliac and inguinal chain lymph nodes are present. Trace free fluid. No fluid collection. Prostate, seminal vesicles, and urinary bladder are unremarkable. OTHER: No acute or suspicious bony abnormality. Osteoarthritis of the hips. Mild gynecomastia. Tiny focus of nodular skin thickening in the midline above the umbilicus. Other areas of skin thickening also present. [facility]-[id number] Procedure Note [facility], Radiology Results Incoming - 01/15/2019 6:25 PM STRUCTURAL STEEL PAINTER EXAMINATION: CT CHEST W CONTRAST ABDOMEN W CONTRAST PELVIS W CONTRAST CLINICAL HISTORY: Untreated HIV. External abscesses. TECHNIQUE: Multi-detector computed axial tomography (CAT) of the chest, abdomen, and pelvis was performed with IV iodinated contrast. Axial maximum intensity projections of the chest, and sagittal and coronal computerized reformatted images of the body were created at a workstation and archived for review. DOSE REDUCTION: CT imaging was performed with iterative reconstruction technique and/or automated exposure control to reduce radiation dose. COMPARISON: None. IMPRESSION: 1. Bibasilar bronchitis and irregular pleural nodules are most likely atypical infectious in etiology. Clinical correlation and follow-up until resolution recommended. 2. Bilateral axillary, iliac, and inguinal lymphadenopathy is most likely secondary to HIV infection. 3. Foci of skin thickening and nodularity concordant with the provided history of skin infection. FINDINGS: CHEST: Mild patchy bronchiolitis in the right middle lobe and basilar segments of the left lower lobe are most likely secondary to atypical infection. Similarly, a 1.3 cm irregular solid pulmonary nodule in the left lower lobe and small spiculated focus in the right lower lobe are also likely atypical infectious. Mild upper lung predominant paraseptal emphysema. No pleural effusion. Heart is normal in size. No pericardial effusion. Aorta, arch great vessels, pulmonary artery, and SVC are unremarkable. Axillary lymph nodes are increased in number and several are mildly enlarged. Calcified mediastinal lymph nodes are consistent with a history of chronic granulomatous disease. No mediastinal mass, incidental thyroid nodule, or abnormality of the esophagus. ABDOMEN: Liver, spleen, pancreas, adrenals, and kidneys are unremarkable. Gallbladder is normal and the pancreaticobiliary system is nondistended. No evidence of obstruction or inflammation in the GI tract. Normal appendix. Mild atherosclerosis of the aorta. Superior mesenteric artery and portal venous system are patent. No adenopathy, free fluid, or fluid collection. PELVIS: Several mildly enlarged bilateral iliac and inguinal chain lymph nodes are present. Trace free fluid. No fluid collection. Prostate, seminal vesicles, and urinary bladder are unremarkable. OTHER: No acute or suspicious bony abnormality. Osteoarthritis of the hips. Mild gynecomastia. Tiny focus of nodular skin thickening in the midline above the umbilicus. Other areas of skin thickening also present. [facility]-[id number] Performing Organization Address [facility] Phone Number [facility] [address] [place] [address] ECG 12 lead (01/15/2019 4:57 PM [employer]) Ventricular rate 91 [facility] Atrial rate 91 [facility] WA interval 156 [facility] QRSD interval 106 [facility] QT interval 360 [facility] QTC interval 442 [facility] P axis 1 64 [facility] QRS axis 1 51 [facility] T wave axis 57 [facility] EKG impression Normal sinus rhythm-Voltage criteria for left ventricular hypertrophy-Abnormal ECG-In automated comparison with ECG of 24-MAY-2017 04:31,- Vent. rate has increased BY38 BPM-Nonspecific T wave abnormality no longer evident in Anterolateral [facility] MUSE leads- Specimen Narrative Performed At Performing Organization Address [facility] Phone Number [employer] [address] [place] [address] Respiratory pathogen panel (01/15/2019 4:49 PM [employer] STE[employer]) Respiratory Positive for Rhinovirus/Enterovirus [place] pathogen panel Negative for all other pathogens tested: RASTAFARI Negative for Adenovirus [facility]OSPITAL Negative for Coronavirus HKU1 Negative for Coronavirus NL63 Negative for Coronavirus 229E Negative for Coronavirus OC43 Negative for Human Metapneumovirus Negative for Influenza A Negative for Influenza A/H1 Negative for Influenza A/H3 Negative for Influenza A/H1-2009 Negative for Influenza B Negative for Parainfluenza Virus 1 Negative for Parainfluenza Virus 2 Negative for Parainfluenza Virus 3 Negative for Parainfluenza Virus 4 Negative for Respiratory Syncytial Virus Negative for Bordetella pertussis Negative for Chlamydophila pneumoniae Negative for Mycoplasma pneumoniae This real-time PCR assay detects the presence of nucleic acids (RNA or DNA) for the respiratory pathogens listed. A result of "Not-detected" does not exclude the possibility of the presence of one or more pathogens at concentrations less than the detectable limits of the assa (A) Comment: Specimen Information Specimen Source: Nares Specimen Site: Right Specimen Nares - Right Performing Organization Address [facility] Phone Number [facility] DEPARTMENT OF PATHOLOGY AND [address] [place] [address] Blood culture, aerobic & anaerobic (01/15/2019 4:37 PM [employer])Only the most recent of2 resultswithin the time period is included. [facility] Blood culture No growth after 5 days of incubation. [facility] Comment: HOSPITAL Specimen Information Specimen Source: Blood Specimen Site: Arm, right Specimen Blood - Arm, right Performing Organization Address [facility] Phone Number [facility] DEPARTMENT OF PATHOLOGY AND [address] [place] [address] HIV Ag/Ab combination (01/15/2019 4:19 PM [employer]) [facility] HIV Ag/Ab combination Reactive (A) Non-reactive [facility] Specimen Blood Performing Organization Address [facility] Phone Number [facility] DEPARTMENT OF PATHOLOGY AND [address] [place] [address] HIV 1/2 Ab differentiation (01/15/2019 4:19 PM [employer]) [facility] HIV1 Ab Ab Reactive (A) Ab Nonreactive [facility] HIV2 Ab Ab Indeterminate Ab Nonreactive [facility] HIV Ab HIV-1 Positive (A) Ab Nonreactive [facility] Specimen Performing Organization Address City/[facility]/Zipcode Phone Number [facility] DEPARTMENT OF PATHOLOGY AND [address] [place] [address] [facility] [address] [address] Manual differential (01/15/2019 4:19 PM [employer]) Manual differential PERFORMED [facility] Neutrophils 73.0 (H) 39.0 - 69.0 % [facility] Lymphocytes 17.0 (L) 25.0 - 45.0 % [facility] Monocytes 6.0 0.0 - 10.0 % [facility] Eosinophils 4.0 0.0 - 5.0 % [facility] Basophils 0.0 0.0 - 1.0 % [facility] Metamyelocytes 0 % [facility] Promyelocytes 0 % [facility] Reactive lymphocytes Few [facility] Platelet slide review Jovany adequate [facility] Anisocytosis Moderate [facility] Polychromasia Moderate [facility] Specimen Performing Organization Address City/State/Zipcode Phone Number [facility] DEPARTMENT OF PATHOLOGY AND [address] [place] [address] [address] after 05/29/2018 Advance Directives Patient has advance care planning documents on file. For more information, please contact:[address] [address]
--- OUTSIDE RECORDS SUMMARY | 2019-05-30 09:24 | XMS REPORT ---
:1975 Author Organization e[employer] Care Team Providers Name Role Phone Rosalino Martinez Provider Role Unavailable Allergies, Adverse Reactions, Alerts Substance Reaction Event Type N.K.D.A. Info Not Available Non Drug Allergy Encounters Encounter Location Date [facility] Rosalino Martinez MD Oct 26, 2016 Problems Problem Type Condition ICD-9 Code Onset Dates Condition Status Assessment Unspecified fracture of shaft of S42.301A Active humerus, right arm, initial encounter for closed fracture Assessment Unspecified fracture of shaft of S42.302A Active humerus, left arm, initial encounter for closed fracture Problem Essential (primary) hypertension I10 Active Assessment Essential (primary) hypertension I10 Active Assessment Psychosis, unspecified psychosis F29 Active type Medications Medication Code System Code Instructions Start Date End Date Status Dosage Atenolol [facility] [address] 25 MG Orally Once Oct 26 1 tablet -01 a day 2015 Social History Social History Element Qualifiers Date Reported Tobacco Use: . Are you a: current smoker Oct 26, 2016 Use of recreational / street drugs? . Answer: No Oct 26, 2016 Do you drink alcohol? . Status: No Oct 26, 2016 Family history Qualifier Description Comment Date Reported Maternal Grandmother Comment not available Oct 26, [...] Other: Comment not available Oct 26, 2016 Vital Signs Date/Time: Oct 26, 2016 Weight 201.2 lbs Height 72 in Cardiac Monitoring Heart Rate 84 /min Blood Pressure Diastolic 100 mm Hg Blood Pressure Systolic 156 mm Hg Summary Purpose eClinicalWorks Submission
--- OUTSIDE RECORDS SUMMARY | 2019-05-30 09:24 | XMS REPORT | Clinical Summary ---
:1975 Author Organization [facility] Address [address] [place] [address] Care Team Providers Name Role Phone Pcp, No Primary Care Provider Unavailable Allergies No Known Allergies Medications Medication Sig Dispensed Refills Start Date End Date Status omeprazole (PRILOSEC) Take 20 mg by 0 Active 20 MG capsule mouth daily. cyclobenzaprine Take 1 tablet 20 tablet 0 06/03/2018 06/13/2018 (FLEXERIL) 10 MG tablet (10 mg total) by mouth 2 (two) times daily as needed for Muscle spasms for up to 10 days. Active Problems Not on file Encounters Date Type Specialty Care Team Description 06/03/2018 Emergency Emergency Medicine [place], Chronic midline low back MD pain without sciatica (Primary Dx) after 05/29/2018 Social History Tobacco Use Types [...] Vital Sign Reading Time Taken Blood Pressure 155/87 06/03/2018 10:34 PM CDT Pulse 68 06/03/2018 10:34 PM CDT Temperature 36.7 C (98.1 F) 06/03/2018 9:56 PM CDT Respiratory Rate 20 06/03/2018 10:34 PM CDT Oxygen Saturation 97% 06/03/2018 10:34 PM CDT Inhaled Oxygen Concentration - - Weight 93 kg (205 lb) 06/03/2018 9:56 PM CDT Height - - Body Mass Index - - Plan of Treatment Not on file Results Not on fileafter 05/29/2018 Insurance Payer Benefit Plan / Group Subscriber ID Type Phone Address [facility] [employer] [employer] x[employer] Maps Contracted
[2019-05-30] MEDS ORDERED: LIDOCAINE 1% MPF 5 ML VIAL ONE (11:31)
--- NOTE | 2019-05-30 11:57 | EDPHYS ---
Physician Documentation [facility] Name: Bakari Mcintosh Age: 43 yrs Sex: Male : 1975 Arrival Date: 05/30/2019 Time: 09:25 Bed Treatment Private MD: None, None ED Physician Anibal Moreno HPI: 05/30 10:55 This 43 yrs old Male presents to ER via EMS with complaints of Spider Bite. jmm 10:55 The patient presents with an abscess of the palmar aspect of left forearm. Onset: The jmm symptoms/episode began/occurred gradually. Possible cause(s): spider bite. Associated signs and symptoms: Pertinent negatives: fever. This is a 43 year old male that presents to the ED with complaints of swelling to his left wrist. Patient believes it may be due to brown recluse spider bite. Patient has had a similar episode before to his right calf. . Historical: - Allergies: 09:45 Geodon; ch 09:45 Haldol; ch 09:45 Risperdal; ch - PMHx: 09:45 HERPES; genital and cold sores; HIV; schizoaffective; brown reculse bite; ch - PSHx: 09:45 Tonsillectomy; ch 09:46 colon polyps, R ear; R hip; ch - Immunization history:: Adult Immunizations up to date. - Social history:: Smoking status: Patient uses tobacco products. - Ebola Screening: : Patient negative for fever greater than or equal to 101.5 degrees Fahrenheit, and additional compatible Ebola Virus Disease symptoms Patient denies exposure to infectious person Patient denies travel to an Ebola-affected area in the 21 days before illness onset No symptoms or risks identified at this time. ROS: 10:55 Constitutional: Negative for fever, chills, and weight loss, Cardiovascular: Negative jmm for chest pain, palpitations, and edema, Respiratory: Negative for shortness of breath, cough, wheezing, and pleuritic chest pain. 10:55 Skin: Positive for erythema, swelling. 10:55 All other systems are negative. Exam: 10:55 Constitutional: This is a well developed, well nourished patient who is awake, alert, jmm and in no acute distress. Head/Face: atraumatic. Eyes: EOMI, no conjunctival erythema appreciated ENT: Moist Mucus Membranes Neck: Trachea midline, Supple Chest/axilla: Normal chest wall appearance and motion. Cardiovascular: Regular rate and rhythm. No edema appreciated Respiratory: Normal respirations, no respiratory distress appreciated Abdomen/GI: Non distended, soft 10:55 Skin: abscess noted to the left ulnar side of the wrist. 10:55 Neuro: Orientation: is normal, Mentation: is normal, Memory: is normal. 10:55 Psych: Behavior/mood is pleasant, cooperative. Vital Signs: 09:46 BP 143 / 100; Pulse 87; Resp 16; Temp 98.2; Pulse Ox 99% on R/A; Weight 68.04 kg; ch Height 5 ft. 11 in. (180.34 cm); Pain 7/10; 09:46 Body Mass Index 20.92 (68.04 kg, 180.34 cm) Procedures: 11:55 I \T\ D: Incision and drainage was performed for an abscess of the palmar aspect of left [facility] forearm Prepped with Betadine, Anesthetized with 2 ml's 1% Lidocaine. Incised with #11 blade. Drained large amount purulent fluid. Packed with iodoform gauze, Dressing: sterile 4x4 gauze, the patient tolerated the procedure well. MDM: 10:55 Patient medically screened. [facility] 11:55 Data reviewed: vital signs, nurses notes. Counseling: I had a detailed discussion with [facility] the patient and/or guardian regarding: the historical points, exam findings, and any diagnostic results supporting the discharge/admit diagnosis, the need for outpatient follow up, to return to the emergency department if symptoms worsen or persist or if there are any questions or concerns that arise at home. ED course: Patient given wound infection return precautions. . 05/30 11:00 Order name: Incision \T\ Drainage Setup; Complete Time: 12:24 [facility] Administered Medications: 12:00 Drug: Lidocaine (1 %) 20 ml Volume: 20 ml; Route: Infiltration; iw Disposition: 15:58 Co-signature as Attending Physician, Anibal Moreno MD. rn Disposition: 05/30/19 11:56 Discharged to Home. Impression: Abscess of arm. - Condition is Stable. - Discharge Instructions: Skin Abscess, Incision and Drainage. - Prescriptions for Tylenol- Codeine #3 300-30 mg Oral Tablet - take 1 tablet by ORAL route every 6 hours As needed; 20 tablet. Bactrim DS 800- 160 mg Oral Tablet - take 1 tablet by ORAL route every 12 hours for 10 days; 20 tablet. Doxycycline Monohydrate 100 mg Oral Tablet - take 1 tablet by ORAL route every 12 hours for 10 days; 20 tablet. - Medication Reconciliation Form, Thank You Letter, Antibiotic Education, Prescription Opioid Use form. - Follow up: Private Physician; When: 2 - 3 days; Reason: Recheck today's complaints, Continuance of care, Re-evaluation by your physician. Signatures: Crystal Francois, RN RN Jn Fish PA PA jmm Williams, Irene, RN RN Anibal Nelson MD MD [employer]: (The following items were deleted from the chart) 12:27 11:56 05/30/2019 11:56 Discharged to Home. Impression: Abscess of arm. Condition is iw Stable. Forms are Medication Reconciliation Form, Thank You Letter, Antibiotic Education, Prescription Opioid Use. Follow up: Private Physician; When: 2 - 3 days; Reason: Recheck today's complaints, Continuance of care, Re-evaluation by your physician. melanie
--- NOTE | 2019-05-30 11:57 | ER ---
Nurse's Notes [facility] Name: Bakari Mcintosh Age: 43 yrs Sex: Male : 1975 Arrival Date: 05/30/2019 Time: 09:25 Bed Treatment Private MD: None, None Diagnosis: Abscess of arm Presentation: 05/30 09:42 Presenting complaint: Patient states: I have a spider bite to my L fore arm. I had a ch brown recluse bite on the back of my R leg years ago and I am worried that my L arm is going to get as bad as my R leg did. Transition of care: patient was not received from another setting of care. Onset of symptoms was May 27, 2019. Risk Assessment: Do you want to hurt yourself or someone else? Patient reports no desire to harm self or others. Initial Sepsis Screen: Does the patient meet any 2 criteria? No. Patient's initial sepsis screen is negative. Does the patient have a suspected source of infection? No. Patient's initial sepsis screen is negative. Care prior to arrival: None. 09:42 Method Of Arrival: EMS: [facility] 09:42 Acuity: FREDERIC 4 ch Triage Assessment: 09:45 General: Appears in no apparent distress. comfortable, Behavior is calm, cooperative. Pain: Complains of pain in palmar aspect of left forearm. Historical: - Allergies: 09:45 Geodon; ch 09:45 Haldol; 09:45 Risperdal; ch - PMHx: 09:45 HERPES; genital and cold sores; HIV; schizoaffective; brown reculse bite; - PSHx: 09:45 Tonsillectomy; 09:46 colon polyps, R ear; R hip; ch - Immunization history:: Adult Immunizations up to date. - Social history:: Smoking status: Patient uses tobacco products. - Ebola Screening: : Patient negative for fever greater than or equal to 101.5 degrees Fahrenheit, and additional compatible Ebola Virus Disease symptoms Patient denies exposure to infectious person Patient denies travel to an Ebola-affected area in the 21 days before illness onset No symptoms or risks identified at this time. Screenin:25 Abuse screen: Denies threats or abuse. Denies injuries from another. Nutritional iw screening: No deficits noted. Tuberculosis screening: No symptoms or risk factors identified. Fall Risk None identified. Assessment: 11:20 General: Appears in no apparent distress. Behavior is calm, cooperative. Neuro: Level iw of Consciousness is awake, alert, obeys commands, Moves all extremities. Cardiovascular: Patient's skin is warm and dry. Derm: Abscess located on palmar aspect of left forearm is quarter sized, is hot to touch, is red, is raised. Musculoskeletal: Range of motion: intact in all extremities. Vital Signs: 09:46 BP 143 / 100; Pulse 87; Resp 16; Temp 98.2; Pulse Ox 99% on R/A; Weight 68.04 kg; ch Height 5 ft. 11 in. (180.34 cm); Pain 7/10; 09:46 Body Mass Index 20.92 (68.04 kg, 180.34 cm) ED Course: 09:25 Patient arrived in ED. ag5 09:25 None, None is Private Physician. [facility] 09:44 Triage completed. 09:46 Arm band placed on right wrist. Patient placed in waiting room. 10:00 Patient has correct armband on for positive identification. 10:44 Yazmin Garibay, JANETH is Primary Nurse. 10:51 Jn Canseco PA is PHCP. [facility] 10:51 Anibal Moreno MD is Attending Physician. [facility] 12:00 Assist provider with I \T\ D: of an abscess on left forearm Set up I\T\D tray. Performed by ivory PHILLIPS Dressing with 4X4s, Patient tolerated well. Patient did not have IV access during this emergency room visit. Administered Medications: 12:00 Drug: Lidocaine (1 %) 20 ml Volume: 20 ml; Route: Infiltration; Outcome: 11:56 Discharge ordered by . [facility] 12:26 Discharged to home ambulatory. 12:26 Condition: good 12:26 Discharge instructions given to patient, Instructed on discharge instructions, follow up and referral plans. medication usage, Demonstrated understanding of instructions, follow-up care, medications, Prescriptions given X 3. 12:27 Patient left the ED. Signatures: Crystal Francois RN JANETH Jn Canseco PA PA jmm Williams, Irene, RN RN Flavia Coleman 5
== END 2019-05-30 12:27 | disposition home or self-care (01) ==
LOC: ER 09:20
PROC: 0J9H0ZZ Drainage of Left Lower Arm Subcutaneous Tissue and Fascia, Open Approach (ICD-10-PCS; principal; 2019-05-30)
DX: L02.414 Cutaneous abscess of left upper limb (principal); Z88.8 Allergy status to other drugs, medicaments and biological substances; A60.00 Herpesviral infection of urogenital system, unspecified; B20 Human immunodeficiency virus [HIV] disease; F25.9 Schizoaffective disorder, unspecified; Z72.0 Tobacco use
CPT/HCPCS: 99284

== ENCOUNTER 2019-11-23 14:08 | Emergency (ER) | payer OTHER ==
--- OUTSIDE RECORDS SUMMARY | 2019-11-23 14:09 | XMS REPORT ---
:1975 Author Organization [facility] Address [address] [place] [address] Care Team Providers Name Role Phone DOUG HANLEY JR Unavailable Unavailable Payers Payer Name Policy Type [...] Department ID 2018-11-26 2018-11-26 Emergency [facility] MED [id number] 08:23:00 08:23:00 2018-06-21 2018-06-21 Outpatient Rox [facility] RAD [id number] 15:13:00 23:59:00 DOUG ECHEVARRIA 2018-01-04 2018-01-04 Outpatient Rox [facility] RAD [id number] 13:20:00 23:59:00 DOUG ECHEVARRIA Results Test Description Test Time Test Comments Text Results Atomic Results Result Comments XR SPINE CERVICAL *NT* 2018-06-21 15:47:21 Cervical spine, 5 viewsLocation code: [id number] history: Neck pain after strainComments: AP, oblique, open mouth odontoid and lateral views of the cervicalspine demonstrate no displaced fracture or malalignment. Straightening of usualcervical lordosis noted. The soft tissues are unremarkable. Impression: Straightening of usual cervical lordosis may represent musclespasm. XR SPINE SACRUM 2018-01-04 14:56:08 Sacrum, 2 viewsLocation Code: D4 COMPLETE *NT* Clinical history: PainComments: AP and lateral views of the sacrum demonstrate no acute fracture ormalalignment. The soft tissues are unremarkable. Impression: No acute abnormality. XR SPINE LUMBAR 2018-01-04 14:55:51 Lumbar spine series, 5 viewsLocation COMPLETE *NT* Code: [id number] HISTORY: M54.5: LOW BACK PAINCOMPARISON: None.COMMENTS: AP, oblique, and lateral views of the lumbar spine demonstrate noacute fracture or malalignment. The soft tissues are unremarkable.IMPRESSION: No acute radiographic abnormality. XR KNEE RIGHT 3 VIEWS 2018-01-04 14:55:19 Right knee, 3 viewsLocation Code : *NT* [id number] HISTORY:M25.561: PAIN IN RIGHT KNEECOMMENTS: AP, lateral, and oblique views of the right knee demonstrate no acutefracture or malalignment. The soft tissues are unremarkable.IMPRESSION: No acute radiographic abnormality. XR FOOT RIGHT COMPLETE 2018-01-04 14:54:55 Right foot, 3 viewsLocation Code: 3V *NT* [id number] HISTORY: M79.671: PAIN IN RIGHT FOOTCOMMENTS: AP, lateral, and oblique views of the right foot demonstrate noacute fracture or malalignment. Tiny plantar and retrocalcaneal enthesophytesare seen. Mild arthrosis at the first MP joint. The soft tissues areunremarkable.IMPRESSION: No acute radiographic abnormality. Tiny plantar and retrocalcanealenthesophytes along with mild arthrosis at the first MP joint. XR ANKLE RIGHT COMPLET 2018-01-04 14:53:52 Right ankle, 3 viewsLocation Code: 3V *NT* [id number] HISTORY: Pain.COMMENTS: AP, lateral, and oblique views of the right ankle demonstrate noacute fracture or malalignment. Mild medial tibiotalar arthrosis is noted. Thesoft tissues are unremarkable.IMPRESSION: No acute radiographic abnormality. Mild arthrosis.
--- NOTE | 2019-11-23 14:50 | ER ---
Nurse's Notes [facility] Name: Bakari Mcintosh Age: 44 yrs Sex: Male : 1975 Arrival Date: 11/23/2019 Time: 14:10 Bed 11 Private MD: Diagnosis: Local infection of the skin and subcutaneous tissue, unspecified Presentation: 11/23 14:33 Presenting complaint: Patient states: "I think I got a spider bite on the back of my aa5 right ankle". Transition of care: patient was not received from another setting of care. Onset of symptoms was November 2019. Risk Assessment: Do you want to hurt yourself or someone else? Patient reports no desire to harm self or others. Initial Sepsis Screen: Does the patient meet any 2 criteria? No. Patient's initial sepsis screen is negative. Does the patient have a suspected source of infection? No. Patient's initial sepsis screen is negative. Care prior to arrival: None. 14:33 Acuity: FREDERIC 5 aa5 14:33 Method Of Arrival: Ambulatory aa5 Historical: - Allergies: 14:34 Geodon; aa5 14:34 Haldol; aa5 14:34 Risperdal; aa5 - PMHx: 14:34 brown reculse bite; HERPES; genital and cold sores; HIV; schizoaffective; aa5 - PSHx: 14:34 Tonsillectomy; colon polyps, R ear; R hip; aa5 - Immunization history:: Flu vaccine is not up to date. - Social history:: Smoking status: Patient uses tobacco products, smokes one pack cigarettes per day. - Ebola Screening: : No symptoms or risks identified at this time. Screenin:35 Abuse screen: Denies threats or abuse. Denies injuries from another. Nutritional ss screening: No deficits noted. Tuberculosis screening: Never had TB. Fall Risk None identified. Assessment: 14:35 General: Appears in no apparent distress. comfortable, Behavior is calm, cooperative. ss Pain: Complains of pain in R lower extremity/ ankle area Pain currently is 10 out of 10 on a pain scale. Quality of pain is described as tender, Is continuous. Neuro: Level of Consciousness is awake, alert, obeys commands, Oriented to person, place, time, situation. Respiratory: Airway is patent Respiratory effort is even, unlabored, Respiratory pattern is regular, symmetrical. GI: Patient currently denies diarrhea, nausea, vomiting. EENT: Nares are clear. Derm: Skin is intact, is healthy with good turgor, Skin is pink, warm \\T\\ dry. Musculoskeletal: Circulation, motion, and sensation intact. Range of motion: intact in all extremities. Vital Signs: 14:34 BP 142 / 91; Pulse 81; Resp 18 S; Temp 97.4(TE); Pulse Ox 100% on R/A; Weight 68.04 kg aa5 (R); Height 5 ft. 11 in. (180.34 cm) (R); Pain 10/10; 14:34 Body Mass Index 20.92 (68.04 kg, 180.34 cm) aa5 ED Course: 14:10 Patient arrived in ED. as 14:12 Patient's name was called from ER haylie. No response. aa5 14:33 Triage completed. aa5 14:35 Jaime Fernandez PA is PHCP. jr8 14:35 Berry Phillips MD is Attending Physician. jr8 14:35 Patient has correct armband on for positive identification. Bed in low position. Call ss light in reach. 15:19 Jen Patton, JANETH is Primary Nurse. ss 15:19 No provider procedures requiring assistance completed. Patient did not have IV access ss during this emergency room visit. Administered Medications: No medications were administered Outcome: 14:49 Discharge ordered by . jr8 15:19 Discharged to home ambulatory. ss 15:19 Condition: good 15:19 Discharge instructions given to patient, Instructed on discharge instructions, follow up and referral plans. medication usage, Demonstrated understanding of instructions, follow-up care, medications, Prescriptions given X 1. 15:20 Patient left the ED. ss Signatures: Carmelita Carrillo Audri RN RN aa5 Jen Patton RN RN Jaime Fernandez PA PA jr
--- NOTE | 2019-11-23 14:50 | EDPHYS ---
Physician Documentation [facility] Name: Bakari Mcintosh Age: 44 yrs Sex: Male : 1975 Arrival Date: 11/23/2019 Time: 14:10 Bed 11 Private MD: ED Physician Berry Phillips HPI: 11/23 14:49 This 44 yrs old Male presents to ER via Ambulatory with complaints of Insect jr8 Bite. 14:49 The patient has not experienced similar symptoms in the past. The patient has not jr8 recently seen a physician. Patient stated that he has small swollen area to back of right ankle and also small pustules to inner thighs that have formed over the past couple of days. No fevers. Historical: - Allergies: 14:34 Geodon; aa5 14:34 Haldol; aa5 14:34 Risperdal; aa5 - PMHx: 14:34 brown reculse bite; HERPES; genital and cold sores; HIV; schizoaffective; aa5 - PSHx: 14:34 Tonsillectomy; colon polyps, R ear; R hip; aa5 - Immunization history:: Flu vaccine is not up to date. - Social history:: Smoking status: Patient uses tobacco products, smokes one pack cigarettes per day. - Ebola Screening: : No symptoms or risks identified at this time. ROS: 14:49 Eyes: Negative for injury, pain, redness, and discharge, ENT: Negative for injury, jr8 pain, and discharge, Neck: Negative for injury, pain, and swelling, Cardiovascular: Negative for chest pain, palpitations, and edema, Respiratory: Negative for shortness of breath, cough, wheezing, and pleuritic chest pain, Abdomen/GI: Negative for abdominal pain, nausea, vomiting, diarrhea, and constipation, Back: Negative for injury and pain, MS/Extremity: Negative for injury and deformity, Neuro: Negative for headache, weakness, numbness, tingling, and seizure. 14:49 Skin: Positive for pustules, of the right leg and left leg. Exam: 14:49 Eyes: Pupils equal round and reactive to light, extra-ocular motions intact. Lids and jr8 lashes normal. Conjunctiva and sclera are non-icteric and not injected. Cornea within normal limits. Periorbital areas with no swelling, redness, or edema. ENT: Nares patent. No nasal discharge, no septal abnormalities noted. Tympanic membranes are normal and external auditory canals are clear. Oropharynx with no redness, swelling, or masses, exudates, or evidence of obstruction, uvula midline. Mucous membranes moist. Neck: Trachea midline, no thyromegaly or masses palpated, and no cervical lymphadenopathy. Supple, full range of motion without nuchal rigidity, or vertebral point tenderness. No Meningismus. Cardiovascular: Regular rate and rhythm with a normal S1 and S2. No gallops, murmurs, or rubs. Normal PMI, no JVD. No pulse deficits. Respiratory: Lungs have equal breath sounds bilaterally, clear to auscultation and percussion. No rales, rhonchi or wheezes noted. No increased work of breathing, no retractions or nasal flaring. Abdomen/GI: Soft, non-tender, with normal bowel sounds. No distension or tympany. No guarding or rebound. No evidence of tenderness throughout. Back: No spinal tenderness. No costovertebral tenderness. Full range of motion. MS/ Extremity: Pulses equal, no cyanosis. Neurovascular intact. Full, normal range of motion. Neuro: Awake and alert, GCS 15, oriented to person, place, time, and situation. Cranial nerves II-XII grossly intact. Motor strength 5/5 in all extremities. Sensory grossly intact. Cerebellar exam normal. Normal gait. 14:49 Skin: Patient has multiple small pustules to inner thighs and one small indurated region to back of right ankle. Vital Signs: 14:34 BP 142 / 91; Pulse 81; Resp 18 S; Temp 97.4(TE); Pulse Ox 100% on R/A; Weight 68.04 kg aa5 (R); Height 5 ft. 11 in. (180.34 cm) (R); Pain 10/10; 14:34 Body Mass Index 20.92 (68.04 kg, 180.34 cm) aa5 MDM: 14:46 Patient medically screened. [facility] 14:49 Data reviewed: vital signs, nurses notes, and as a result, I will discharge patient. jr8 Data interpreted: Pulse oximetry: on room air is 100 %. Interpretation:. Counseling: I had a detailed discussion with the patient and/or guardian regarding: the historical points, exam findings, and any diagnostic results supporting the discharge/admit diagnosis, the need for outpatient follow up, a family practitioner, to return to the emergency department if symptoms worsen or persist or if there are any questions or concerns that arise at home. Administered Medications: No medications were administered Disposition: 16:05 Co-signature as Attending Physician, Berry Phillips MD I agree with the assessment and quoc plan of care. Disposition: 11/23/19 14:49 Discharged to Home. Impression: Local infection of the skin and subcutaneous tissue, unspecified. - Condition is Stable. - Discharge Instructions: Skin Abscess, Cellulitis, Adult. - Prescriptions for Bactroban 2 % Topical Ointment - Apply to affected area 1 application by TOPICAL route every 12 hours; 30 gram. Bactrim DS 800- 160 mg Oral Tablet - take 1 tablet by ORAL route every 12 hours for 10 days; 20 tablet. - Medication Reconciliation Form, Thank You Letter, Antibiotic Education, Prescription Opioid Use form. - Follow up: Private Physician; When: 2 - 3 days; Reason: Recheck today's complaints, Continuance of care, Re-evaluation by your physician. - Problem is new. - Symptoms have improved. Signatures: Berry Phillips MD MD cha Calderon, Audri, RN RN aa5 Jen Patton RN RN ss Jaime Fernandez PA PA jr8 Corrections: (The following items were deleted from the chart) 15:20 14:49 11/23/2019 14:49 Discharged to Home. Impression: Local infection of the skin and ss subcutaneous tissue, unspecified. Condition is Stable. Forms are Medication Reconciliation Form, Thank You Letter, Antibiotic Education, Prescription Opioid Use. Follow up: Private Physician; When: 2 - 3 days; Reason: Recheck today's complaints, Continuance of care, Re-evaluation by your physician. Problem is new. Symptoms have improved. jr8
[2019-11-23 17:08] VITALS: BP 142/91; TEMP 97.4; O2SAT 100
== END 2019-11-23 15:20 | disposition home or self-care (01) ==
LOC: ER 14:08
DX: L08.9 Local infection of the skin and subcutaneous tissue, unspecified (principal); Z88.8 Allergy status to other drugs, medicaments and biological substances; B20 Human immunodeficiency virus [HIV] disease; F17.210 Nicotine dependence, cigarettes, uncomplicated
CPT/HCPCS: 99282

== ENCOUNTER 2020-01-28 09:48 | Emergency (ER) | payer OTHER ==
--- OUTSIDE RECORDS SUMMARY | 2020-01-28 09:58 | XMS REPORT ---
:1975 [facility] [address] [place] [address] Care Team Providers Name Role Phone DOUG [...] Department ID 2018-11-26 2018-11-26 Emergency [facility] [id number] 08:23:00 08:23:00 2018-06-21 2018-06-[address] [facility] [id number] 15:13:00 23:59:00 DOUG ECHEVARRIA 2018-01-04 2018-01-[address] [facility] [id number] 13:20:00 23:59:00 DOUG ECHEVARRIA Results Test Description Test Time Test Comments Text Results Atomic Results Result Comments XR SPINE CERVICAL *NT* 2018-06-21 15:47:21 Cervical spine, 5 viewsLocation code: [id number] history: Neck pain after strainComments: AP, oblique, [...] spine series, 5 viewsLocation COMPLETE *NT* Code: [id number] HISTORY: M54.5: LOW BACK PAINCOMPARISON: None.COMMENTS: AP, oblique, and lateral views of the lumbar spine demonstrate noacute fracture or malalignment. The soft tissues are unremarkable.IMPRESSION: No acute radiographic abnormality. XR KNEE RIGHT 3 VIEWS 2018-01-04 14:55:19 Right knee, 3 viewsLocation Code : *NT* [id number] HISTORY:M25.561: PAIN IN RIGHT KNEECOMMENTS: AP, lateral, and oblique views of the right knee demonstrate no acutefracture or malalignment. The soft tissues are unremarkable.IMPRESSION: No acute radiographic abnormality. XR FOOT RIGHT COMPLETE 2018-01-04 14:54:55 Right foot, 3 viewsLocation Code: 3V *NT* [id number] HISTORY: M79.671: PAIN IN RIGHT FOOTCOMMENTS: AP, [...] Right ankle, 3 viewsLocation Code: 3V *NT* [id number] HISTORY: Pain.COMMENTS: AP, lateral, and oblique views of the right ankle demonstrate noacute fracture or malalignment. Mild medial tibiotalar arthrosis is noted. Thesoft tissues are unremarkable.IMPRESSION: No acute radiographic abnormality. Mild arthrosis.
[2020-01-28] MEDS ORDERED: LIDOCAINE 1% MPF 5 ML VIAL ONE (10:06)
[2020-01-28] MEDS ORDERED: BUPIVACAINE 0.5% PF 10 ML VIAL ONE (10:06)
[2020-01-28] MEDS ORDERED: MORPHINE 2 MG/ML SYR ONE (10:57)
[2020-01-28] MEDS ORDERED: CLINDAMYCIN 900MG/D5W 900 MG/50 ML IVPB IV ONE (10:58)
[2020-01-28 11:12] LABS: Absolute Lymphocytes (CBC) 1.3 K/uL (0.7-4.9); Basophils % 1.2 % (0-1.3); MPV 8.3 fL (7.6-11.3); RBC Red Blood Cell Count 4.02 M/uL (4.33-5.43)
[2020-01-28 11:28] LABS: BUN Blood Urea Nitrogen 13 mg/dL (7-18); Bicarbonate 29 mmol/L (21-32); Glucose Level 71 mg/dL (74-106); Potassium 4.8 mmol/L (3.5-5.1); Sodium Level 138 mmol/L (136-145)
[2020-01-28] MEDS ORDERED: FENTANYL CITR 100 MCG/2 ML ONE (11:56)
--- NOTE | 2020-01-28 12:35 | EDPHYS ---
Physician Documentation [facility] Name: Bakari Mcintosh Age: 44 yrs Sex: Male : 1975 Arrival Date: 01/28/2020 Time: 09:49 Bed 8 Private MD: ED Physician Anibal Moreno HPI: 01/27 10:00 This 44 yrs old Male presents to ER via EMS with complaints of Abscess. cp 10:00 The patient presents with an abscess of the right groin, the patient presents with a cp swollen area of the right groin. Description: draining, swollen, tense. 10:00 Onset: The symptoms/episode began/occurred 3 day(s) ago. cp 10:00 Associated signs and symptoms: Pertinent positives: drainage, swelling, Pertinent cp negatives: fever. Severity of symptoms: in the emergency department the symptoms are unchanged, despite home interventions. Historical: - Allergies: 09:51 Geodon; hb 09:51 Haldol; hb 09:51 Risperdal; hb - Home Meds: 09:51 lisinopril Oral [Active]; hb - PMHx: 09:51 brown reculse bite; HERPES; genital and cold sores; HIV; schizoaffective; Hypertension; hb - PSHx: 09:51 Tonsillectomy; colon polyps, R ear; R hip; hb - Immunization history:: Adult Immunizations up to date. - Social history:: Smoking status: Patient reports the use of cigarette tobacco products, smokes one pack cigarettes per day. ROS: 10:05 Constitutional: Negative for body aches, chills, fever, poor PO intake. cp 10:05 Eyes: Negative for injury, pain, redness, and discharge. cp 10:05 ENT: Negative for drainage from ear(s), ear pain, sore throat, difficulty swallowing, difficulty handling secretions. 10:05 Cardiovascular: Negative for chest pain, palpitations. 10:05 Respiratory: Negative for cough, shortness of breath, wheezing. 10:05 Abdomen/GI: Negative for abdominal pain, nausea, vomiting, and diarrhea. 10:05 Skin: Positive for abscess, swelling, of the right groin. 10:05 All other systems are negative. Exam: 10:12 Constitutional: The patient appears in no acute distress, alert, awake, non-toxic, well cp developed, well nourished, uncomfortable. 10:12 Head/Face: Normocephalic, atraumatic. cp 10:12 Eyes: Periorbital structures: appear normal, Conjunctiva: normal, Lids and lashes: appear normal, bilaterally. 10:12 ENT: External ear(s): are unremarkable, Nose: is normal, Mouth: Lips: moist, Oral mucosa: pink and intact, moist, Posterior pharynx: Airway: no evidence of obstruction, patent. 10:12 Chest/axilla: Inspection: normal. 10:12 Cardiovascular: Rate: normal, Rhythm: regular. 10:12 Respiratory: the patient does not display signs of respiratory distress, Respirations: normal, no retractions, labored breathing, is not present. 10:12 Abdomen/GI: Inspection: abdomen appears normal, Bowel sounds: active, all quadrants, Palpation: soft, in all quadrants, nontender, in all quadrants, voluntary guarding, is not appreciated, involuntary guarding, is not appreciated. 10:12 : Male external genitalia: erythema, is absent, swelling, is not appreciated, tenderness, of the lateral aspect right testicle is noted, that is mild. 10:12 Skin: abscess, that is moderate sized, of the right groin, with drainage, that is purulent. Vital Signs: 09:50 BP 148 / 92; Pulse 84; Resp 16; Temp 98.2; Pulse Ox 100% ; Weight 72.57 kg; Height 5 hb ft. 11 in. (180.34 cm); Pain 7/10; 11:00 BP 163 / 102; Pulse 75; Resp 17; Pulse Ox 100% ; bp 12:00 BP 162 / 111; Pulse 78; Resp 17; Pulse Ox 100% ; bp 13:00 BP 167 / 98; Pulse 72; Resp 16; Temp 98.5; Pulse Ox 100% ; bp 09:50 Body Mass Index 22.32 (72.57 kg, 180.34 cm) hb MDM: 09:51 Patient medically screened. rn 10:00 Differential diagnosis: abscess, cellulitis. cp 12:00 ED course: [place] prescription monitor program shows a narcotic score of 100 and cp sedative score of 60. 12:33 Refusal of service: The patient/guardian displays adequate decision making capability cp and despite a detailed discussion of alternatives, benefits, risks, and consequences refuses: I\T\D of abscess. Patient unable to tolerate procedure after injection with lidocaine/Marcaine mixture was performed and pain medications were given. Patient refused I\T\D. Will discharge with prescriptions for oral antibiotics and refer to general surgery. 12:34 Data reviewed: vital signs, nurses notes, lab test result(s), I have discussed the cp patient's presentation/case with the attending Emergency Department Physician; and as a result, I will discharge patient. 01/27 10:34 Order name: CBC with Diff; Complete Time: 11:37 cp 01/27 11:37 Interpretation: Normal except: WBC 11.2; RBC 4.02; HGB 12.1; HCT 36.0; STEWART% 77.0; LYM% cp 12.0; NEUT A 8.6. 01/27 10:34 Order name: BMP; Complete Time: 11:37 cp 01/27 09:56 Order name: I\T\D Setup; Complete Time: 10:06 cp 01/27 10:34 Order name: IV; Complete Time: 11:01 cp Administered Medications: 10:00 Drug: Lidocaine (1 %) 5 ml Volume: 20 ml; Route: Infiltration; bp 10:00 Drug: Marcaine (0.5 %) 5 ml Volume: 10 ml; Route: Infiltration; bp 10:50 Drug: morphine 2 mg Route: IVP; Site: right antecubital; bp 11:42 Follow up: Response: Pain is decreased bp 10:50 Drug: Clindamycin 900 mg Route: IVPB; Infused Over: 30 mins; Site: right antecubital; bp 13:12 Follow up: IV Status: Completed infusion; IV Intake: 50ml bp 11:45 Drug: fentaNYL (PF) 25 mcg Route: IVP; Site: right antecubital; bp 12:32 Follow up: Response: Pain is decreased bp 12:45 Drug: Bactrim (160 mg-800 mg (DS) 1 tablet Route: PO; bp 12:56 Follow up: Response: No adverse reaction bp Disposition: 14:14 Co-signature as Attending Physician, Anibal Moreno MD. rn Disposition: 01/28/20 12:34 Discharged to Home. Impression: Cutaneous abscess of groin, Cellulitis of groin. - Condition is Stable. - Discharge Instructions: Skin Abscess, Cellulitis, Adult. - Prescriptions for Clindamycin HCl 300 mg Oral Capsule - take 1 capsule by ORAL route every 6 hours for 10 days; 40 capsule. Bactrim DS 800- 160 mg Oral Tablet - take 1 tablet by ORAL route every 12 hours for 10 days; 20 tablet. Tramadol 50 mg Oral Tablet - take 1 tablet by ORAL route every 8 hours as needed; 15 tablet. - Medication Reconciliation Form, Thank You Letter, Antibiotic Education, Prescription Opioid Use form. - Follow up: Darrin Del Cid MD; When: 1 - 2 days; Reason: Recheck today's complaints. - Problem is new. - Symptoms have improved. Signatures: Dispatcher [employer] EDMS Anibal Moreno MD MD rn Berry Chisholm PA PA cp Zenobia Claros RN RN hb Chun Brown RN RN bp Corrections: (The following items were deleted from the chart) 12:35 12:34 01/28/2020 12:34 Discharged to Home. Impression: Cutaneous abscess of groin. cp Condition is Stable. Discharge Instructions: Skin Abscess, Cellulitis, Adult. Prescriptions for Clindamycin HCl 300 mg Oral Capsule - take 1 capsule by ORAL route every 6 hours for 10 days; 40 capsule, Bactrim DS 800-160 mg Oral Tablet - take 1 tablet by ORAL route every 12 hours for 10 days; 20 tablet, Tramadol 50 mg Oral Tablet - take 1 tablet by ORAL route every 8 hours as needed; 12 tablet. and Forms are Medication Reconciliation Form, Thank You Letter, Antibiotic Education, Prescription Opioid Use. Follow up: Dr. Darrin Del Cid; When: 1 - 2 days; Reason: Recheck today's complaints. Problem is new. Symptoms have improved. cp 13:16 12:35 01/28/2020 12:34 Discharged to Home. Impression: Cutaneous abscess of groin; bp Cellulitis of groin. Condition is Stable. Discharge Instructions: Skin Abscess, Cellulitis, Adult. Prescriptions for Clindamycin HCl 300 mg Oral Capsule - take 1 capsule by ORAL route every 6 hours for 10 days; 40 capsule, Bactrim DS 800-160 mg Oral Tablet - take 1 tablet by ORAL route every 12 hours for 10 days; 20 tablet, Tramadol 50 mg Oral Tablet - take 1 tablet by ORAL route every 8 hours as needed; 12 tablet. and Forms are Medication Reconciliation Form, Thank You Letter, Antibiotic Education, Prescription Opioid Use. Follow up: Dr. Darrin Del Cid; When: 1 - 2 days; Reason: Recheck today's complaints. Problem is new. Symptoms have improved. cp
--- NOTE | 2020-01-28 12:35 | ER ---
Nurse's Notes [facility] Name: Bakari Mcintosh Age: 44 yrs Sex: Male : 1975 Arrival Date: 01/28/2020 Time: 09:49 Bed 8 Private MD: Diagnosis: Cutaneous abscess of groin;Cellulitis of groin Presentation: 01/27 09:50 Chief complaint: EMS states: Abscess on scrotum x 3 days. Coronavirus screen: The hb patient has NOT traveled to a country currently being monitored by the CDC within the last 14 days. The patient has NOT had contact with any known and/or suspected case of coronavirus. Proceed with normal triage procedures. Ebola Screen: No symptoms or risks identified at this time. Initial Sepsis Screen: Does the patient meet any 2 criteria? No. Patient's initial sepsis screen is negative. Does the patient have a suspected source of infection? No. Patient's initial sepsis screen is negative. Risk Assessment: Do you want to hurt yourself or someone else? Patient reports no desire to harm self or others. 09:50 Method Of Arrival: EMS: [facility] 09:50 Acuity: FREDERIC 3 hb Triage Assessment: 10:00 General: Appears in no apparent distress. uncomfortable, Behavior is cooperative, bp appropriate for age, anxious. Pain: Complains of pain in pelvis. EENT: No deficits noted. Neuro: No deficits noted. Cardiovascular: No deficits noted. Respiratory: No deficits noted. GI: No signs and/or symptoms were reported involving the gastrointestinal system. : No signs and/or symptoms were reported regarding the genitourinary system. Derm: Abscess located on groin. Musculoskeletal: No deficits noted. Historical: - Allergies: 09:51 Geodon; hb 09:51 Haldol; hb 09:51 Risperdal; hb - Home Meds: 09:51 lisinopril Oral [Active]; hb - PMHx: 09:51 brown reculse bite; HERPES; genital and cold sores; HIV; schizoaffective; Hypertension; hb - PSHx: 09:51 Tonsillectomy; colon polyps, R ear; R hip; hb - Immunization history:: Adult Immunizations up to date. - Social history:: Smoking status: Patient reports the use of cigarette tobacco products, smokes one pack cigarettes per day. Screenin:52 Abuse screen: Denies threats or abuse. Denies injuries from another. Nutritional hb screening: No deficits noted. Tuberculosis screening: No symptoms or risk factors identified. Fall Risk None identified. Assessment: 10:00 General: SEE TRIAGE NOTE. bp 11:02 Reassessment: ALL CURRENT ORDERS IN PROCESS. PT PREPPED FOR B/S I\T\D. bp 12:00 Reassessment: Patient appears in no apparent distress at this time. Patient and/or hb family updated on plan of care and expected duration. Pain level reassessed. Patient is alert, oriented x 3, equal unlabored respirations, skin warm/dry/pink. 12:31 Reassessment: PT UNABLE TO TOLERATE B/S I\T\D. bp 13:10 Reassessment: PT D/C HOME AMBULATORY WITH FAMILY, DX WITH CUTANEOUS GROIN ABSCESS. bp Vital Signs: 09:50 BP 148 / 92; Pulse 84; Resp 16; Temp 98.2; Pulse Ox 100% ; Weight 72.57 kg; Height 5 hb ft. 11 in. (180.34 cm); Pain 7/10; 11:00 BP 163 / 102; Pulse 75; Resp 17; Pulse Ox 100% ; bp 12:00 BP 162 / 111; Pulse 78; Resp 17; Pulse Ox 100% ; bp 13:00 BP 167 / 98; Pulse 72; Resp 16; Temp 98.5; Pulse Ox 100% ; bp 09:50 Body Mass Index 22.32 (72.57 kg, 180.34 cm) hb ED Course: 09:49 Patient arrived in ED. hb 09:51 Triage completed. hb 09:51 Anibal Moreno MD is Attending Physician. rn 09:51 Arm band placed on. hb 09:52 Patient has correct armband on for positive identification. Placed in gown. Bed in low hb position. Call light in reach. Side rails up X 1. 09:54 Berry Chisholm PA is PHCP. cp 09:54 Anibal Moreno MD is Attending Physician. cp 09:57 Zenobia Claros RN is Primary Nurse. hb 10:50 Inserted saline lock: 22 gauge in right antecubital area, using aseptic technique. bp Blood collected. 12:33 Darrin Del Cid MD is Referral Physician. cp 13:11 No provider procedures requiring assistance completed. IV discontinued, intact, bp bleeding controlled, No redness/swelling at site. Pressure dressing applied. Administered Medications: 10:00 Drug: Lidocaine (1 %) 5 ml Volume: 20 ml; Route: Infiltration; bp 10:00 Drug: Marcaine (0.5 %) 5 ml Volume: 10 ml; Route: Infiltration; bp 10:50 Drug: morphine 2 mg Route: IVP; Site: right antecubital; bp 11:42 Follow up: Response: Pain is decreased bp 10:50 Drug: Clindamycin 900 mg Route: IVPB; Infused Over: 30 mins; Site: right antecubital; bp 13:12 Follow up: IV Status: Completed infusion; IV Intake: 50ml bp 11:45 Drug: fentaNYL (PF) 25 mcg Route: IVP; Site: right antecubital; bp 12:32 Follow up: Response: Pain is decreased bp 12:45 Drug: Bactrim (160 mg-800 mg (DS) 1 tablet Route: PO; bp 12:56 Follow up: Response: No adverse reaction bp Intake: 13:12 IV: 50ml; Total: 50ml. bp Outcome: 12:34 Discharge ordered by MD. cp 13:11 Discharged to home ambulatory, with family. bp 13:11 Condition: stable 13:11 Discharge instructions given to patient, Instructed on discharge instructions, follow up and referral plans. medication usage, wound care, Demonstrated understanding of instructions, follow-up care, medications, wound care, Prescriptions given X 3. 13:16 Patient left the ED. bp Signatures: Anibal Moreno MD MD rn Page, Corey, PA PA cp Baxter, Heather, RN RN Chun Bryan RN RN bp Corrections: (The following items were deleted from the chart) 12:28 09:50 Acuity: FREDERIC 4 hb hb
[2020-01-28] MEDS ORDERED: SMZ./TMP. 800/160 MG TABLET ONE (12:55)
[2020-01-28 13:23] VITALS: O2SAT 100
[2020-01-28 13:28] VITALS: TEMP 98.5
[2020-01-28 14:06] VITALS: BP 174/85
== END 2020-01-28 13:16 | disposition home or self-care (01) ==
LOC: ER 09:48
DX: L03.314 Cellulitis of groin (principal); I10 Essential (primary) hypertension; F17.210 Nicotine dependence, cigarettes, uncomplicated; F25.9 Schizoaffective disorder, unspecified; Z21 Asymptomatic human immunodeficiency virus [HIV] infection status; Z88.5 Allergy status to narcotic agent; Z88.8 Allergy status to other drugs, medicaments and biological substances
CPT/HCPCS: 96365; 85025; 80048; 36415; 96375; 99284; 96366; J3010; J2270

== ENCOUNTER 2020-02-21 12:56 | Emergency (ER) | payer OTHER ==
--- OUTSIDE RECORDS SUMMARY | 2020-02-21 13:03 | XMS REPORT ---
:[address] [facility] t Address [address] [place] [address] Care Team Providers Name Role Phone DOUG HANLEY JR Unavailable Unavailable Payers Payer Name Policy Type Policy Number Effective Date Expiration D ate Problems This patient has no known problems. Allergies, Adverse Reactions, Alerts Allergy Name Allergy Status Severity Reaction(s) Onset Inactive Treat ing Comments Type Date Date Clinician ziprasidone DA Active MO 2016-03 00:00:0 0 Medications This patient has no known medications. Encounters Start End Encounter Admission Attending Care Care Encounter Date/Time Date/Time Type Type Clinicians Facility Department ID 2018-11-26 2018-11-26 Emergency [facility] MED [id number] 08:23:00 08:23:00 2018-06-21 2018-06-21 Outpatient Rox [facility] [place] RAD [id number] 15:13:00 23:59:00 DOUG ECHEVARRIA 2018-01-04 2018-01-04 Outpatient Rox [facility] [place] RAD [id number] 13:20:00 23:59:00 DOUG ECHEVARRIA Results Test Description Test Time Test Comments Text Results Atomic Results Result Comments XR SPINE CERVICAL *NT* 2018-06-21 15:47:21 Cervi mehnaz spine, 5 viewsLocation code: [id number] history: Neck saurav n after strainComments: AP, oblique, open mouth odontoid and lateral views o f the cervicalspine demonstrate no displaced fracture or malalignment. St raightening of usualcervical lordosis no mannie. The soft tissues are unremarkabl e. Impression: Straightening of usual cervical lordosis may repres ent musclespasm. XR SPINE SACRUM 2018-01-04 14:56:08 Sacrum, 2 viewsLoc ation Code: D4 COMPLETE *NT* Clinical history: PainComme nts: AP and lateral views of the sacrum demonstrate no acute fracture ormalalign ment. The soft tissues are unremarkabl e. Impression: No acute abnorma lity. XR SPINE LUMBAR 2018-01-04 14:55:51 Lumbar spine serie s, 5 viewsLocation COMPLETE *NT* Code: [id number] HISTORY: M 54.5: LOW BACK PAINCOMPARISON: None.CO MMENTS: AP, oblique, and lateral views o f the lumbar spine demonstrate livia cute fracture or malalignment. Th e soft tissues are unremarkable.IMP RESSION: No acute radiographic abnormali ty. XR KNEE RIGHT 3 VIEWS 2018-01-04 14:55:19 Right knee, 3 viewsLocation Code: *NT* [id number] HISTORY:M25.561: PAIN IN RIGHT KNEECOMMENTS: AP, late ral, and oblique views of the right k nee demonstrate no acutefracture or malalignment. The soft tissu es are unremarkable.IMPRESSION: No acute radiographic abnormality. XR FOOT RIGHT COMPLETE 2018-01-04 14:54:55 Right foot, 3 viewsLocation Code: 3V *NT* [id number] HISTORY: M79.671: PAIN IN RIGHT FOOTCOMMENTS: AP, late ral, and oblique views of the right foot demonstrate noacute fracture or malalignment. Tiny plantar a nd retrocalcaneal enthesophytes are seen. Mild arthrosis at the first MP joint. The soft tissues areunremarkable.IMPRESSION: No acute radiographic abnormality. Ti ny plantar and retrocalcanealenthesophy lore along with mild arthrosis at the f irst MP joint. XR ANKLE RIGHT COMPLET 2018-01-04 14:53:52 Right ankle , 3 viewsLocation Code: 3V *NT* [id number] HISTORY: Pain.COM MENTS: AP, lateral, and oblique views o f the right ankle demonstrate noacute f racture or malalignment. Mild medial ti biotalar arthrosis is noted. Thesoft tissues are unremarkable.IMPRESSION: No acute radiographic abnormality. Mi ld arthrosis.
--- NOTE | 2020-02-21 14:22 | EDPHYS ---
Physician Documentation [facility] Name: Bakari Mcintosh Age: 44 yrs Sex: Male : 1975 Arrival Date: 02/21/2020 Time: 12:58 Bed 14 Private MD: ED Physician Jean Paul James HPI: 02/20 14:09 This 44 yrs old Male presents to ER via Wheelchair with complaints of Hip cp Pain, Foot Pain, Breathing Difficulty. 14:09 The patient or guardian reports pain. The complaints affect the right hip and right cp knee. Onset: The symptoms/episode began/occurred and became worse after walking from [place] to [place]. Associated signs and symptoms: Pertinent negatives: abdominal pain, chest pain, fever. Patient denies injury. Historical: - Allergies: 13:32 Geodon; iw 13:32 Haldol; iw 13:32 Risperdal; iw - Home Meds: 13:32 None [Active]; iw - PMHx: 13:32 brown reculse bite; HERPES; genital and cold sores; HIV; Hypertension; schizoaffective; iw - PSHx: 13:32 Tonsillectomy; colon polyps, R ear; R hip; iw - Immunization history:: Adult Immunizations not up to date. - Social history:: Smoking status: Patient reports the use of cigarette tobacco products, smokes one pack cigarettes per day. ROS: 14:12 Constitutional: Negative for body aches, chills, fever. cp 14:12 Neck: Negative for pain with movement, pain at rest, stiffness. cp 14:12 Cardiovascular: Negative for chest pain. 14:12 Respiratory: Negative for cough, shortness of breath, wheezing. 14:12 Back: Negative for pain at rest, pain with movement, radiated pain. 14:12 MS/extremity: Positive for pain, of the right hip and right knee, Negative for injury or acute deformity, decreased range of motion, paresthesias. 14:12 Neuro: Negative for altered mental status, headache, weakness. 14:12 All other systems are negative. Exam: 14:15 Constitutional: The patient appears in no acute distress, alert, awake, cp non-diaphoretic, non-toxic, well developed, well nourished. 14:15 Head/Face: Normocephalic, atraumatic. cp 14:15 Eyes: Periorbital structures: appear normal, Conjunctiva: normal, no exudate, no injection, Lids and lashes: appear normal, bilaterally. 14:15 ENT: External ear(s): are unremarkable, Nose: is normal, Mouth: Lips: moist, Posterior pharynx: Airway: no evidence of obstruction, patent. 14:15 Chest/axilla: Inspection: normal. 14:15 Cardiovascular: Rate: normal. 14:15 Respiratory: the patient does not display signs of respiratory distress, Respirations: normal. 14:15 Abdomen/GI: Exam negative for discomfort, distension, guarding, Inspection: abdomen appears normal. 14:15 Musculoskeletal/extremity: Extremities: grossly normal except: noted in the right hip and right knee: pain, There is no evidence of decreased ROM, swelling, Perfusion: the extremity is normally perfused throughout, Sensation intact. Vital Signs: 13:24 BP 144 / 84; Pulse 70; Resp 16; Temp 98.4; Pulse Ox 98% on R/A; Weight 68.04 kg; Height iw 5 ft. 11 in. (180.34 cm); Pain 8/10; 13:24 Body Mass Index 20.92 (68.04 kg, 180.34 cm) iw MDM: 13:39 Patient medically screened. cp Administered Medications: No medications were administered Disposition: 02/21 09:41 Co-signature as Attending Physician, Jean Paul James MD I agree with the assessment and kdr plan of care. Disposition: 02/21/20 14:21 Patient left the facility after being seen by provider. - Patient left due to (see nurse's notes). Signatures: Jean Paul James MD MD kdr Yazmin Garibay, RN RN iw Berry Chisholm PA PA cp
--- NOTE | 2020-02-21 14:22 | ER ---
Nurse's Notes [facility] Name: Bakari Mcintosh Age: 44 yrs Sex: Male : 1975 Arrival Date: 02/21/2020 Time: 12:58 Bed 14 Private MD: Diagnosis: Presentation: 02/20 13:24 Chief complaint: Patient states: low back pain and hip pain for a couple months, also iw has chronic right knee pain and hip pain , pain has increased today because he has been walking a lot. Coronavirus screen: Proceed with normal triage. Ebola Screen: Patient negative for fever greater than or equal to 101.5 degrees Fahrenheit, and additional compatible Ebola Virus Disease symptoms Patient denies exposure to infectious person. Patient denies travel to an Ebola-affected area in the 21 days before illness onset. No symptoms or risks identified at this time. Initial Sepsis Screen: Does the patient meet any 2 criteria? No. Patient's initial sepsis screen is negative. Does the patient have a suspected source of infection? No. Patient's initial sepsis screen is negative. Risk Assessment: Do you want to hurt yourself or someone else? Patient reports no desire to harm self or others. 13:24 Method Of Arrival: Wheelchair iw 13:24 Acuity: FREDERIC 4 iw 13:46 Onset of symptoms was February 21, 2020. ca1 Triage Assessment: 13:46 Respiratory: No deficits noted. Reports Onset: The symptoms/episode began/occurred ca1 Historical: - Allergies: 13:32 Geodon; iw 13:32 Haldol; iw 13:32 Risperdal; iw - Home Meds: 13:32 None [Active]; iw - PMHx: 13:32 brown reculse bite; HERPES; genital and cold sores; HIV; Hypertension; schizoaffective; iw - PSHx: 13:32 Tonsillectomy; colon polyps, R ear; R hip; iw - Immunization history:: Adult Immunizations not up to date. - Social history:: Smoking status: Patient reports the use of cigarette tobacco products, smokes one pack cigarettes per day. Screenin:43 Abuse screen: Denies threats or abuse. Denies injuries from another. Nutritional ca1 screening: No deficits noted. Tuberculosis screening: No symptoms or risk factors identified. Fall Risk None identified. Assessment: 13:43 General: Appears in no apparent distress. comfortable, Behavior is calm, cooperative, ca1 appropriate for age. Pain: Complains of pain in right low back Pain currently is 8 out of 10 on a pain scale. Neuro: Level of Consciousness is awake, alert, obeys commands, Oriented to person, place, time, situation, Appropriate for age. Cardiovascular: Rhythm is regular. Respiratory: Airway is patent Respiratory effort is even, unlabored, Respiratory pattern is regular, symmetrical, Breath sounds are clear bilaterally. GI: Abdomen is flat, non-distended, Bowel sounds present X 4 quads. Abd is soft and non tender X 4 quads. : No signs and/or symptoms were reported regarding the genitourinary system. EENT: No signs and/or symptoms were reported regarding the EENT system. Derm: Skin is intact, is healthy with good turgor, Skin is pink, warm \T\ dry. Musculoskeletal: Circulation, motion, and sensation intact. Capillary refill < 3 seconds. Vital Signs: 13:24 BP 144 / 84; Pulse 70; Resp 16; Temp 98.4; Pulse Ox 98% on R/A; Weight 68.04 kg; Height iw 5 ft. 11 in. (180.34 cm); Pain 8/10; 13:24 Body Mass Index 20.92 (68.04 kg, 180.34 cm) iw ED Course: 12:58 Patient arrived in ED. ag5 13:23 Berry Chisholm PA is PHCP. cp 13:23 Jean Paul James MD is Attending Physician. cp 13:31 Triage completed. iw 13:40 Liz Warren RN is Primary Nurse. ca1 13:43 Patient has correct armband on for positive identification. Bed in low position. Call ca1 light in reach. Side rails up X2. Pulse ox on. NIBP on. Warm blanket given. 13:46 Arm band placed on. ca1 Administered Medications: No medications were administered Outcome: 14:20 Eloped from patient exam room, after seeing physician Time discovered patient gone: iw February 21, 2020 at 14:20 14:21 Patient left the ED. iw Signatures: Yazmin Garibay RN RN Berry Chisholm PA PA cp Liz Warren RN RN ca1 Flavia Coleman ag5
[2020-02-21 14:28] VITALS: BP 144/84; TEMP 98.4; O2SAT 98
== END 2020-02-21 14:21 | disposition left against medical advice (07) ==
LOC: ER 12:56
DX: M25.551 Pain in right hip (principal); M25.561 Pain in right knee; I10 Essential (primary) hypertension; F17.210 Nicotine dependence, cigarettes, uncomplicated; Z21 Asymptomatic human immunodeficiency virus [HIV] infection status; Z88.5 Allergy status to narcotic agent; Z88.8 Allergy status to other drugs, medicaments and biological substances
CPT/HCPCS: 99282

== ENCOUNTER 2020-05-12 18:51 | Emergency (ER) | payer OTHER ==
--- OUTSIDE RECORDS SUMMARY | 2020-05-12 18:53 | XMS REPORT | Clinical Summary ---
:1975 Author Organization [facility] Address [address] [place] [address] Care Team Providers Name Role Phone Pcp Primary Care Provider Unavailable Allergies No Known Allergies Medications Medication Sig Dispensed Refills Start Date End Date Status omeprazole (PRILOSEC) Take 20 mg by 0 Active 20 MG capsule mouth daily. Active Problems Not on file Social History Tobacco Use Types Packs/Day Years Used Date Current Every Day Smoker Alcohol Use Drinks/Week oz/Week Comments No Sex Assigned at Date Recorded Not on file Job Start Date Occupation Industry Not on file Not on file Not on file Travel History Travel Start Travel End No recent travel history available. Last Filed Vital Signs Not on file Plan of Treatment Not on file Results Not on fileafter 05/12/2019 Insurance Payer Benefit Plan / Group Subscriber ID Type Phone A ddress [employer] xxxxxxxx Maps Contracted
--- OUTSIDE RECORDS SUMMARY | 2020-05-12 18:53 | XMS REPORT | Continuity of Care Document ---
:1975 Author Organization [facility] Care Team Providers Name Role Phone [facility] Unavailable Un available Problems Problem Status Onset Classification Date Comments Sourc e Date Reported Unspecified Active Diagnosis 11/23/2016 Rosalino Gramajo fracture of Lock shaft of humerus, right arm, initial encounter for closed fracture Unspecified Active Diagnosis 11/23/2016 Rosalino C fracture of Lock shaft of humerus, left arm, initial encounter for closed fracture Essential Active Problem 11/23/2016 Rosalino C (primary) Lock hypertension Psychosis, Active Diagnosis 11/23/2016 Rosalino C unspecified Lock psychosis type Medications Medication Details Route Status Patient Ordering Order Source Instructions Provider Date Atenolol 1 tablet Orally Active 25 MG Orally Lock 10/26/20 Rosalino Gramajo Once a day 16 Lock Allergies, Adverse Reactions, Alerts Substance Category Reaction Severity Reaction Status Date Comments S ource type Reported N.K.D.A. Adverse Info Not Adverse Active Rich black Reaction Available Reaction 6 C Lo ck Immunizations No Data Provided for This Section [...] Date Comments Source Weight 201.2 10/26/2016 Rosalino C Michelle Height 72 10/26/2016 Rosalino C Michelle Heart Rate 84 10/26/2016 Rosalino C Lock Diastolic (mm Hg) 100 10/26/2016 Rosalino C Lock Systolic (mm Hg) 156 10/26/2016 Rosalino C L ock Encounters Location Location Encounter Encounter Reason Attending ADM OR Stat us Source Details Type Number For Provider Date Date Visit Rosalino Doherty FX [employer] [id number] 10/26 10/26 Rosalino Martinez MD [id number] C L ock [id number] Procedures No Data Provided for This [...]
--- OUTSIDE RECORDS SUMMARY | 2020-05-12 18:53 | XMS REPORT | Clinical Summary ---
:1975 Author Organization [facility] ict Address [facility] [place] [address] Care Team Providers Name Role Phone Unavailable Primary Care Provider Unavailable Allergies Active Allergy Reactions Severity Noted Date Comments No Known Allergies 08/12/2010 Medications Medication Sig Dispensed Refills Start Date End Date Status trifluoperazine Take 5 mg by 0 A ctive (STELAZINE) 5 mg tablet mouth 2 times [...] Old) None Schizo affective schizophrenia Bipolar disorder Immunizations Name Administration Dates Next Due Influenza Vaccine 08/04/2010 PPD 12/28/2011 Tdap Tetanus, diphtheria, acellular pertussis Vaccine 2009 Family History Medical History Relation Name Comments [...] Signs Not on file Plan of Treatment Health Maintenance Due Date Last Done Comments IMM Influenza Seasonal Aug to January (>/= 19 yrs) 08/14/2020 08/04/2010 Results Not on fileafter 05/12/2019 Insurance Payer Benefit Plan / Subscriber ID Effective Phone Address T ype Group Dates [employer] xxxxxxxx 2018-Prese [phone] [address] [address] [place] [address] [place] [id number] QUALIFIED xxxxxxxxx 2011-Prese [phone] [id number] [place] [address]
--- OUTSIDE RECORDS SUMMARY | 2020-05-12 18:53 | XMS REPORT | Clinical Summary ---
:1975 Author Organization [facility] Address [address] [place] [address] Care Team Providers Name Role Phone Asked, No Pcp Primary Care Provider Unavailable Allergies Active Allergy Reactions Severity Noted Date Comments Ziprasidone Hcl Other (See Comments) 01/24/2017 Blur red Vision Haloperidol Other (See Comments) 01/24/2017 Muscle tightness Risperidone 01/24/2017 Medications No known medications Active Problems Problem Noted Date HIV (human immunodeficiency virus infection) 9 Schizophrenia 01/16/2019 Dyspnea 01/15/2019 Rash 01/15/2019 Social History Tobacco Use Types Packs/Day Years [...] Due Date Last Done Comments INFLUENZA VACCINE 06/14/2020 Results Not on fileafter 05/12/2019 Advance Directives For more information, please contact: [phone] Type Date 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
--- OUTSIDE RECORDS SUMMARY | 2020-05-12 18:54 | XMS REPORT | Continuity of Care Document ---
:1975 Author Organization [facility] t Address [address] [place] [address] Care Team Providers Name Role Phone Pcp, No Primary Care Physician Unavailable DOUG HANLEY JR Attending Clinician Unavailable Jacquelin HANLEY JR Admitting Clinician Unavailable Payers Payer Name Policy Type Policy Number Effective Date Expiration Date S ource Problems Condition Condition Condition Status Onset Resolution Last Treating Co mments Source Name Details Category Date Date Treatment Clinician Date 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 00:00: st virus virus 00 infection) infection) Schizophre Schizophre Disease Active H radha junito junito 3-05 Methodi 00:00: st 00 Dyspnea Dyspnea Disease Active [facility] 304 Methodi 00:00: st 00 Rash Rash Disease Active [facility] 3-04 Methodi 00:00: st 00 Lump or Lump or Disease Active 2009-11 Peña mass in mass in 0-27 Health breast _ breast _ 00:00: lt lt 00 Refraction Refraction Disease Active 2009-11 H arris error error 027 Health 00:00: 00 Obesity Obesity Disease Active 2009-11 Peña 0-27 Health 00:00: 00 Nicotine Nicotine Disease Active 2009-11 Harri s addiction addiction 0-27 Heal th 00:00: 00 Tattoo Tattoo Disease Active 2009-11 Peña 0- Health 00:00: 00 Acne Acne Disease Active 2009-11 Peña 0 Health 00:00: 00 Health Health Disease Active 2009-11 Overview: Peña maintenanc maintenanc 0-27 PSA\Recta Health e e 00:00: l Exam : examinatio examinatio 00 08/23 n n refusedFO BT (50 + Annual):n aCholeste rol (20 + every 5 yrs):orde [id number] : naMicroal bumin: naLast Td/Dtap: orderedFl u Vaccine (Annual): 07/24Pneum ovax: naLast PPD (yearly 1-35): 06/23Diabe tic Foot Exam (Annual): naDiabeti c Eye Exam (Annual): na EKG (Over 40 yrs Old) None Schizo Schizo Disease Active [place] affective affective Heal [facility] schizophre schizophre junito junito Bipolar Bipolar Disease Active [place] disorder disorder Health Unspecifie Diagnosis Active 2016-11-23 Memoria d fracture 05:14:21 l of shaft [place] of Unspecifie humerus, d fracture right arm, of shaft initial of encounter humerus, for closed right arm, fracture initial encounter for closed fracture Active Diagnosis 11/23/2016 Rosalino Martinez Unspecifie Diagnosis Active 2016-11-23 Memoria d fracture 05:14:21 l of shaft Kyree of Unspecifie humerus, d fracture left arm, of shaft initial of encounter humerus, for closed left arm, fracture initial encounter for closed fracture Active Diagnosis 11/23/2016 Rosalino Martinez Essential Problem Active 2016-11-23 Me moria (primary) 05:14:21 l hypertensi Yobani n on Essential (primary) hypertensi on Active Problem 7 Rosalino Martinez Psychosis, Diagnosis Active 2016-11-23 Memoria unspecifie 05:14:21 l d [place] psychosis Psychosis, type unspecifie d psychosis type Active Diagnosis 11/23/2016 Rosailno Martinez Allergies, Adverse Reactions, Alerts Allergy Allergy Status Severity Reaction(s) Onset Inactive Treating Comm ents Source Name Type Date Date Clinician Ziprasid Propensi Active Other (See 2017-0 Blurred [place] one Hcl ty to Comments) 01-24 Vision Method i adverse 00:00: st reaction 00 s to drug Haloperi Propensi Active Other (See Muscle [place] dol ty to Comments) 01-24 tightness Meth kg adverse 00:00: st reaction 00 s to drug Risperid Propensi Active [place] one ty to 01-24 Methodi adverse 00:00: st reaction 00 s to drug N.K.D.A. N.K.D.A. Active Info Not 2015-11 Tico vanessa Available 12-27 l 00:00: ziprasid DA Active [place] [facility] 04-[facility]: [address] Family History Family Member Diagnosis Comments Start Date Stop Date Source unknown Unknown Fam Hx [facility] Unknown Family Family History 2016-11-23 2016-11-23 Memravi al [place] Member 05:14:21 05:14:21 Social History Social Habit Start Date Stop Date Quantity Comments Source History of tobacco Cigarette Smoker [facility] use Sex Assigned At [facility] TobaccoUse: 2016-10-26 2016-10-26 [facility] 00:00:00 00:00:00 Cigarettes smoked 2010-09-09 2010-09-09 [facility] current (pack per 00:00:00 00:00:00 day) - Reported Alcohol intake 2010-09-09 2010-09-09 [facility] 00:00:00 00:00:00 Smoking Status Start Date Stop Date Source Current every day smoker 2010-09-09 00:00:00 [facility] Medications Ordered Filled Start Stop Current Ordering Indication Dosage Frequency Signature Comments Components Source Medication Medication Date Date Medication? Clinician (SIG) Name Name omeprazole Yes 20mg QD Take [address] (PRILOSEC) 7-21 by mouth [facility] - 20 MG 21:58: daily. Medical capsule [address] [place] [address] Atenolol 2015-11 Yes Rosalino 1 tablet Me moria 12-27 Lock l 00:00: trifluopera 2009-11 Yes 5mg Q.5D Take 5 mg H arris zine by mouth 2 Health (STELAZINE) 10:14: times 5 mg tablet 18 daily. 1 by mouth 2 times daily benztropine 2009-11 Yes 2mg Q.5D Take 2 mg H arris (COGENTIN) 0-27 by mouth 2 [facility]a l[facility] 2 mg tablet 10:14: times 18 daily. 1 by mouth 2 times daily loratadine 2009-11 Yes 10mg QD Take 10 mg H arris (CLARITIN) 0-27 by mouth [facility]alt [facility] 10 mg 10:14: daily. 1 tablet 18 by mouth daily as needed for allergies Immunizations Ordered Immunization Filled Immunization Date Status Commen ts Source Name Name PPD 2011-12-28 Completed [facility] 00:00:00 Tdap Tetanus, 2010-09-09 Completed [facility] th diphtheria, 00:00:00 acellular pertussis Vaccine Influenza Vaccine 2010-08-04 Completed [facility] 00:00:00 Vital Signs Vital Name Observation Time Observation Value Comments Source Weight 2016-10-26 20:00:00 [facility] Height 2016-10-26 20:00:00 [facility] Heart Rate 2016-10-26 20:00:00 [facility] Diastolic (mm Hg) 2016-10-26 20:00:00 [facility] Systolic (mm Hg) 2016-10-26 20:00:00 Tico rial [place] Procedures This patient has no known procedures. Plan of Care Planned Activity Planned Date Details Comments Source Future Scheduled 2020-08-14 IMM Influenza [facility] Test 00:00:00 Seasonal Aug to January (>/= 19 yrs) [code = IMM Influenza Seasonal Aug to January (>/= 19 yrs)] Future Scheduled 2020-06-14 INFLUENZA VACCINE Gareth chen [facility] Test 00:00:00 [code = INFLUENZA VACCINE] Encounters Start End Encounter Admission Attending Care Care Encounter Source Date/Time Date/Time Type Type Clinicians Facility Department ID 2018-11-26 2018-11-26 Emergency [facility] [id number] [place] 08:23:00 08:23:00 [facility] 2018-06-21 2018-06-21 Outpatient [facility] RAD [id number] [place] 15:13:00 23:59:00 DOUG ECHEVARRIA [facility] 2018-01-04 2018-01-04 Outpatient [facility]ox [facility] RAD [id number] [place] 13:20:00 23:59:00 DOUG ECHEVARRIA [facility] 2016-10-26 2016-10-26 Outpatient Rosalino Doherty [id number] [facility] 14:00:00 14:00:00 Michelle Jessica MD alWo richelle LUCIANO Results Test Description Test Test Results Result Source Time Comments Comments XR SPINE 2018-06- Cervical spine, 5 CERVICAL *NT* 08 viewsLocation code: [id number] 15:47:21 history: Neck pain after strainComments: AP, oblique, open mouth odontoid and lateral views of the cervicalspine demonstrate no displaced fracture or malalignment. Straightening of usualcervical lordosis noted. The soft tissues are unremarkable. Impression: Straightening of usual cervical lordosis may represent musclespasm. XR SPINE SACRUM 2017-12- Sacrum, 2 viewsLocation Code: COMPLETE *NT* 21 D4 Clinical history: 14:56:08 PainComments: AP and lateral views of the sacrum demonstrate no acute fracture ormalalignment. The soft tissues are unremarkable. Impression: No acute abnormality. XR SPINE LUMBAR 2017-12- Lumbar spine series, 5 COMPLETE *NT* 21 viewsLocation Code: [id number] 14:55:51 HISTORY: M54.5: LOW BACK PAINCOMPARISON: None.COMMENTS: AP, oblique, and lateral views of the lumbar spine demonstrate noacute fracture or malalignment. The soft tissues are unremarkable.IMPRESSION: No acute radiographic abnormality. XR KNEE RIGHT 3 2017-12- Right knee, 3 viewsLocation VIEWS *NT* 21 Code: [id number] 14:55:19 HISTORY:M25.561: PAIN IN RIGHT KNEECOMMENTS: AP, lateral, and oblique views of the right knee demonstrate no acutefracture or malalignment. The soft tissues are unremarkable.IMPRESSION: No acute radiographic abnormality. XR FOOT RIGHT 2017-12- Right foot, 3 viewsLocation COMPLETE 3V *NT* 21 Code: [id number] HISTORY: 14:54:55 M79.671: PAIN IN RIGHT FOOTCOMMENTS: AP, lateral, and oblique views of the right foot demonstrate noacute fracture or malalignment. Tiny plantar and retrocalcaneal enthesophytesare seen. Mild arthrosis at the first MP joint. The soft tissues areunremarkable.IMPRESSION: No acute radiographic abnormality. Tiny plantar and retrocalcanealenthesophytes along with mild arthrosis at the first MP joint. XR ANKLE RIGHT 2017-12- Right ankle, 3 viewsLocation COMPLET 3V *NT* 21 Code: [id number] HISTORY: 14:53:52 Pain.COMMENTS: AP, lateral, and oblique views of the right ankle demonstrate noacute fracture or malalignment. Mild medial tibiotalar arthrosis is noted. Thesoft tissues are unremarkable.IMPRESSION: No acute radiographic abnormality. Mild arthrosis.
[2020-05-12 19:43] LABS: Absolute Lymphocytes (CBC) 1.4 K/uL (0.7-4.9); Basophils % 0.9 % (0-1.3); Hematocrit 37.4 % (39.6-49.0); Lymphocytes % 25.4 % (15.3-44.8); RBC Red Blood Cell Count 4.26 M/uL (4.33-5.43)
[2020-05-12 19:48] LABS: Protime INR 1.01
[2020-05-12 20:02] LABS: ALT/SGPT 20 U/L (12-78); AST/SGOT 21 U/L (15-37); Albumin 3.2 g/dL (3.4-5.0); Alkaline Phosphatase 87 U/L (45-117); BUN Blood Urea Nitrogen 19 mg/dL (7-18); Bicarbonate 31 mmol/L (21-32); Bilirubin Direct < 0.1 mg/dL (0-0.2); Bilirubin Total 0.2 mg/dL (0.2-1.0); Glucose Level 66 mg/dL (74-106); Magnesium 2.3 mg/dL (1.8-2.4); NT PRO-BNP 305 pg/mL (<125); Protein, Total 8.5 g/dL (6.4-8.2); Sodium Level 142 mmol/L (136-145); Troponin (Emerg Dept Use Only) < 0.02 ng/mL (0.0-0.045)
[2020-05-12] MEDS ORDERED: ACETAMINOPHEN 500 MG TAB ONE (20:02)
--- NOTE | 2020-05-12 20:10 | RAD REPORT ---
EXAM DESCRIPTION: RAD - Chest Single View - 05/12/2020 7:50 pm CLINICAL HISTORY: Hypertension COMPARISON: None TECHNIQUE: AP portable chest image was obtained 05/12/2020 7:50 pm . FINDINGS: Lungs are clear. Heart and vasculature are normal. No measurable pleural effusion and no p neumothorax. No acute bony abnormality seen. No acute aortic findings suspected. IMPRESSION: No acute cardiopulmonary process.
[2020-05-12 20:12] LABS: Barbiturates NEGATIVE (NEGATIVE); Benzodiazepines NEGATIVE (NEGATIVE); Cocaine NEGATIVE (NEGATIVE); METHAMPHETAM POSITIVE (NEGATIVE); Methadone NEGATIVE (NEGATIVE); Opiates NEGATIVE (NEGATIVE); Phencyclidine NEGATIVE (NEGATIVE); THC Cannibis NEGATIVE (NEGATIVE)
[2020-05-12 20:31] LABS: Urine Blood NEGATIVE (NEG); Urine Glucose NEGATIVE (NEG); Urine Protein 1+ (NEG); Urine Specific Gravity >1.030 (1.005-1.030)
--- NOTE | 2020-05-12 21:45 | ER ---
Nurse's Notes [facility] Name: Bakari Mcintosh Age: 44 yrs Sex: Male : 1975 Arrival Date: 05/12/2020 Time: 18:57 Bed 28 Private MD: Diagnosis: Hypertension;Back Pain Presentation: 05/12 18:57 Chief complaint: Patient states: feels like his BP is elevated. Has not been taking his sv meds because he ran out of them. c/o left sided neck pain, irritable, lightheaded and fatigue. Coronavirus screen: Proceed with normal triage. Patient denies a cough. Patient denies shortness of breath or difficulty breathing. Patient denies measured and/or subjective temperature greater than 100.4F prior to today's visit. Patient denies travel on a cruise ship or to a country the [facility] currently lists as an affected area. Patient denies contact with known and/or suspected case of COVID-19. Ebola Screen: No symptoms or risks identified at this time. Risk Assessment: Do you want to hurt yourself or someone else? Patient reports no desire to harm self or others. Onset of symptoms is unknown. 18:57 Method Of Arrival: Ambulatory sv 18:57 Acuity: FREDERIC 3 sv 19:00 Initial Sepsis Screen: Does the patient meet any 2 criteria? No. Patient's initial sv sepsis screen is negative. Does the patient have a suspected source of infection? No. Patient's initial sepsis screen is negative. Triage Assessment: 19:00 General: Appears in no apparent distress. comfortable, Behavior is calm, cooperative, sv appropriate for age. Pain: Complains of pain in left posterior aspect of neck and left lateral aspect of neck. Neuro: Level of Consciousness is awake, alert, obeys commands, Oriented to person, place, time, situation, Gait is steady. Respiratory: Respiratory effort is even, unlabored. Derm: Skin is normal. Historical: - Allergies: 18:57 Geodon; sv 18:57 Haldol; sv 18:57 Risperdal; sv - PMHx: 18:57 brown reculse bite; HERPES; genital and cold sores; HIV; Hypertension; schizoaffective; sv - PSHx: 18:57 Tonsillectomy; colon polyps, R ear; R hip; sv - Immunization history:: Adult Immunizations unknown. - Social history:: Smoking status: Patient reports the use of cigarette tobacco products, Patient/guardian denies using street drugs. Screenin:11 Abuse screen: Denies threats or abuse. Nutritional screening: No deficits noted. jb4 Tuberculosis screening: No symptoms or risk factors identified. Fall Risk None identified. Assessment: 19:11 General: Appears in no apparent distress. uncomfortable, Behavior is calm, cooperative, jb4 appropriate for age. Pain: Complains of pain in posterior cervical area, left trapezius, right trapezius, left scapular area, right scapular area, left subscapular area and right subscapular area Pain does not radiate. Pain currently is 6 out of 10 on a pain scale. Quality of pain is described as aching, tightness Pain began Few weeks ago Is continuous. Neuro: Level of Consciousness is awake, alert, obeys commands, Oriented to person, place, time, situation. Cardiovascular: Reports fatigue, Denies chest pain, Patient's skin is warm and dry. Respiratory: Airway is patent Respiratory effort is even, unlabored, Respiratory pattern is regular, symmetrical. GI: No signs and/or symptoms were reported involving the gastrointestinal system. : No signs and/or symptoms were reported regarding the genitourinary system. EENT: No signs and/or symptoms were reported regarding the EENT system. Derm: Skin is intact, Skin is pink, warm \T\ dry. Musculoskeletal: Circulation, motion, and sensation intact. Range of motion: intact in all extremities. 20:04 Reassessment: Patient appears in no apparent distress at this time. Patient and/or jb4 family updated on plan of care and expected duration. Pain level reassessed. Patient is alert, oriented x 3, equal unlabored respirations, skin warm/dry/pink. 21:00 Reassessment: PT appears to be resting comfortably in bed with eyes closed. jb4 respirations are even and unlabored with no s/s of pain or distress noted. 22:08 Reassessment: Patient appears in no apparent distress at this time. Patient and/or jb4 family updated on plan of care and expected duration. Pain level reassessed. Patient is alert, oriented x 3, equal unlabored respirations, skin warm/dry/pink. Patient states feeling better. Vital Signs: 19:00 BP 146 / 98; Pulse 81; Resp 16; Temp 97; Pulse Ox 100% ; Height 5 ft. 11 in. (180.34 sv cm); 19:11 BP 144 / 95; Pulse 81; Resp 16; Pulse Ox 100% on R/A; Pain 6/10; jb4 20:00 BP 166 / 109; Pulse 68; Resp 16; Pulse Ox 100% on R/A; jb4 21:00 BP 168 / 103; Pulse 59; Resp 16; Pulse Ox 100% on R/A; jb4 21:30 BP 161 / 95; Pulse 66; Resp 16; Pulse Ox 100% on R/A; jb4 ED Course: 18:57 Patient arrived in ED. sv 18:57 Arm band placed on. sv 18:59 Triage completed. 19:02 Jay Samuel, RN is Primary Nurse. jb4 19:04 Manas Hernandez MD is Attending Physician. 7 19:11 Patient has correct armband on for positive identification. Bed in low position. Call jb4 light in reach. Side rails up X 1. Pulse ox on. NIBP on. 19:30 Initial lab(s) drawn, by ak, sent to lab. Inserted saline lock: 20 gauge in left jb4 antecubital area, using aseptic technique. Blood collected. 19:50 XRAY Chest (1 view) In Process Unspecified. EDMS 21:44 Lisa Burton MD is Referral Physician. 7 22:08 No provider procedures requiring assistance completed. IV discontinued, intact, jb4 bleeding controlled, No redness/swelling at site. Pressure dressing applied. Administered Medications: 19:59 Drug: Tylenol 1000 mg Route: PO; jb4 21:00 Follow up: Response: No adverse reaction; Pain is decreased jb4 Outcome: 21:44 Discharge ordered by . 7 22:08 Discharged to home ambulatory. jb4 22:08 Condition: stable 22:08 Discharge instructions given to patient, Instructed on discharge instructions, follow up and referral plans. medication usage, Demonstrated understanding of instructions, follow-up care, medications, Prescriptions given X 1. 22:09 Patient left the ED. jb4 Signatures: Dispatcher [employer] Dorina August RN RN Jay Samuel RN RN 4 Manas Hernandez MD MD [facility] Corrections: (The following items were deleted from the chart) 19:00 18:57 Chief complaint: Patient states: feels like his BP is elevated. Has not been sv taking his meds because he ran out of them. sv 19:03 18:57 Chief complaint: Patient states: feels like his BP is elevated. Has not been sv taking his meds because he ran out of them. c/o left sided neck pain. sv 19:03 18:57 Chief complaint: Patient states: feels like his BP is elevated. Has not been sv taking his meds because he ran out of them. c/o left sided neck pain, irritable, and fatigue. sv 19:03 19:00 Pulse 81bpm; Resp 16bpm; Pulse Ox 100%; Temp 97F; Height 5 ft. 11 in.; sv sv 19:13 19:11 Cardiovascular: Patient's skin is warm and dry. jb4 jb4 19:20 19:11 Pain: Complains of pain in posterior cervical area, left trapezius, right jb4 trapezius, left scapular area, right scapular area, left subscapular area and right subscapular area Pain does not radiate. Pain currently is 6 out of 10 on a pain scale. Quality of pain is described as aching, jb4 19:20 19:11 Cardiovascular: Reports fatigue, lightheadedness, Denies chest pain, Patient's jb4 skin is warm and dry. jb4
--- NOTE | 2020-05-12 21:46 | EDPHYS ---
Physician Documentation [facility] Name: Bakari Mcintosh Age: 44 yrs Sex: Male : 1975 Arrival Date: 05/12/2020 Time: 18:57 Bed 28 Private MD: ED Physician Manas Hernandez HPI: 05/12 19:22 This 44 yrs old Male presents to ER via Ambulatory with complaints of High mh7 Blood Pressure, Back Pain. 19:22 The patient has elevated blood pressure and discovered this at home, Not measured. mh7 Onset: The symptoms/episode began/occurred 2 week(s) ago. Modifying factors: The symptoms are aggravated by discontinuation of meds, NAHED-inhibitor, The symptoms are alleviated by Nothing. Associated signs and symptoms: Pertinent negatives: chest pain, dizziness, dyspnea, headache, nausea, visual changes, vomiting, weakness. Severity of symptoms: At its worst the blood pressure was moderate, yesterday, in the emergency department the blood pressure is improved, moderately. The patient has experienced similar episodes in the past, several times. Patient states that he ran out of his Lisinopril several weeks ago. He states that he has felt that his blood pressure was elevated although he has not measured it. He reports having intermittent upper back pain and left neck pain for the past 2 weeks that are worse with movement. He denies any headache, chest pain, abdominal pain. SOB, nausea, vomiting, fever, cough, or recent travel.. Historical: - Allergies: 18:57 Geodon; sv 18:57 Haldol; sv 18:57 Risperdal; sv - PMHx: 18:57 brown reculse bite; HERPES; genital and cold sores; HIV; Hypertension; schizoaffective; sv - PSHx: 18:57 Tonsillectomy; colon polyps, R ear; R hip; sv - Immunization history:: Adult Immunizations unknown. - Social history:: Smoking status: Patient reports the use of cigarette tobacco products, Patient/guardian denies using street drugs. ROS: 19:22 Constitutional: Negative for fever, chills, and weight loss, Eyes: Negative for injury, mh7 pain, redness, and discharge, ENT: Negative for injury, pain, and discharge, Cardiovascular: Negative for chest pain, palpitations, and edema, Respiratory: Negative for shortness of breath, cough, wheezing, and pleuritic chest pain, Abdomen/GI: Negative for abdominal pain, nausea, vomiting, diarrhea, and constipation, : Negative for injury, bleeding, discharge, and swelling, MS/Extremity: Negative for injury and deformity, Skin: Negative for injury, rash, and discoloration, Neuro: Negative for headache, weakness, numbness, tingling, and seizure, Psych: Negative for depression, anxiety, suicide ideation, homicidal ideation, and hallucinations, Allergy/Immunology: Negative for hives, rash, and allergies, Endocrine: Negative for neck swelling, polydipsia, polyuria, polyphagia, and marked weight changes, Hematologic/Lymphatic: Negative for swollen nodes, abnormal bleeding, and unusual bruising. Exam: 19:22 Constitutional: This is a well developed, well nourished patient who is awake, alert, mh7 and in no acute distress. Head/Face: Normocephalic, atraumatic. Eyes: Pupils equal round and reactive to light, extra-ocular motions intact. Lids and lashes normal. Conjunctiva and sclera are non-icteric and not injected. Cornea within normal limits. Periorbital areas with no swelling, redness, or edema. ENT: Nares patent. No nasal discharge, no septal abnormalities noted. Tympanic membranes are normal and external auditory canals are clear. Oropharynx with no redness, swelling, or masses, exudates, or evidence of obstruction, uvula midline. Mucous membranes moist. 19:22 Chest/axilla: Normal chest wall appearance and motion. Nontender with no deformity. No lesions are appreciated. Cardiovascular: Regular rate and rhythm with a normal S1 and S2. No gallops, murmurs, or rubs. Normal PMI, no JVD. No pulse deficits. Respiratory: Lungs have equal breath sounds bilaterally, clear to auscultation and percussion. No rales, rhonchi or wheezes noted. No increased work of breathing, no retractions or nasal flaring. Abdomen/GI: Soft, non-tender, with normal bowel sounds. No distension or tympany. No guarding or rebound. No evidence of tenderness throughout. 19:22 Skin: Warm, dry with normal turgor. Normal color with no rashes, no lesions, and no evidence of cellulitis. MS/ Extremity: Pulses equal, no cyanosis. Neurovascular intact. Full, normal range of motion. Neuro: Awake and alert, GCS 15, oriented to person, place, time, and situation. Cranial nerves II-XII grossly intact. Motor strength 5/5 in all extremities. Sensory grossly intact. Cerebellar exam normal. Normal gait. Psych: Awake, alert, with orientation to person, place and time. Behavior, mood, and affect are within normal limits. 19:22 Neck: External neck: tenderness, that is mild, of the left mid cervical area and left trapezius, C-spine: appears grossly normal, no vertebral tenderness, no crepitus, Thyroid: appears normal, Trachea: is midline with no obvious abnormalities, ROM/movement: is normal, Lymph nodes: no appreciated lymphadenopathy. 19:22 Back: pain, that is mild, of the left subscapular area, ROM is normal, normal spinal alignment noted, CVA tenderness, is absent, vertebral tenderness, is not appreciated, muscle spasm, is not present. 19:50 ECG was reviewed by the Attending Physician. [facility] Vital Signs: 19:00 BP 146 / 98; Pulse 81; Resp 16; Temp 97; Pulse Ox 100% ; Height 5 ft. 11 in. (180.34 sv cm); 19:11 BP 144 / 95; Pulse 81; Resp 16; Pulse Ox 100% on R/A; Pain 6/10; jb4 20:00 BP 166 / 109; Pulse 68; Resp 16; Pulse Ox 100% on R/A; jb4 21:00 BP 168 / 103; Pulse 59; Resp 16; Pulse Ox 100% on R/A; jb4 21:30 BP 161 / 95; Pulse 66; Resp 16; Pulse Ox 100% on R/A; jb4 MDM: 19:[address] [facility] 21:42 Differential diagnosis: hypertensive crisis, Malignant HTN. Data reviewed: vital signs, [facility] nurses notes, old medical records, lab test result(s), cardiac enzymes, CBC, electrolytes, urinalysis, urine drug screen, EKG, radiologic studies, plain films. Data interpreted: night monitor: rate is 68 beats/min, rhythm is normal sinus rhythm, regular, Interpretation: normal rate, normal rhythm, Pulse oximetry: on room air is 100 %. Interpretation: normal. Counseling: I had a detailed discussion with the patient and/or guardian regarding: the historical points, exam findings, and any diagnostic results supporting the discharge/admit diagnosis, the presence of at least one elevated blood pressure reading (>120/80) during this emergency department visit, lab results, radiology results, the need for outpatient follow up, to return to the emergency department if symptoms worsen or persist or if there are any questions or concerns that arise at home. Response to treatment: the patient's symptoms have markedly improved after treatment. 05/12 19:18 Order name: Basic Metabolic Panel; Complete Time: 20:12 [facility] 05/12 19:18 Order name: CBC with Diff; Complete Time: 19:46 7 05/12 19:18 Order name: LFT's; Complete Time: 20:12 [facility] 05/12 19:18 Order name: Magnesium; Complete Time: 20:12 [facility] 05/12 19:18 Order name: NT PRO-BNP; Complete Time: 20:12 [facility] 05/12 19:18 Order name: PT-INR; Complete Time: 20:12 [facility] 05/12 19:18 Order name: Troponin (emerg Dept Use Only); Complete Time: 20:12 [facility] 05/12 19:18 Order name: XRAY Chest (1 view); Complete Time: 20:12 [facility] 05/12 19:18 Order name: Cardiac monitoring; Complete Time: 20:02 [facility] 05/12 19:18 Order name: EKG - Nurse/Tech; Complete Time: 20:02 [facility] 05/12 19:19 Order name: UDS; Complete Time: 20:49 [facility] 05/12 19:36 Order name: Urine Dipstick--Ancillary (enter results); Complete Time: 20:49 3 05/12 19:18 Order name: IV Saline Lock; Complete Time: 19:59 7 05/12 19:18 Order name: Labs collected and sent; Complete Time: 19:59 7 05/12 19:18 Order name: O2 Per Protocol; Complete Time: 19:59 [facility] 05/12 19:18 Order name: O2 Sat Monitoring; Complete Time: 19:59 7 05/12 19:19 Order name: Urine Dipstick-Ancillary (obtain specimen); Complete Time: 20:03 mh7 EC:50 Rate is 75 beats/min. Rhythm is regular, Normal Sinus Rhythm with No ectopy. QRS [place] mh7 is Normal. NH interval is normal. QRS interval is normal. QT interval is normal. No Q waves. T waves are Normal. No ST changes noted. Clinical impression: NSR w/ Non-specific ST/T Changes and LVH. Administered Medications: 19:59 Drug: Tylenol 1000 mg Route: PO; jb4 21:00 Follow up: Response: No adverse reaction; Pain is decreased jb4 Disposition: 05/12/20 21:44 Discharged to Home. Impression: Hypertension, Back Pain. - Condition is Stable. - Discharge Instructions: Hypertension, [id number], Back Pain, Adult, [id number]. - Prescriptions for Metoprolol Tartrate 25 mg Oral Tablet - take 1 tablet by ORAL route 2 times per day with a meal; 20 tablet. - Medication Reconciliation Form, Thank You Letter, Antibiotic Education, Prescription Opioid Use form. - Follow up: Private Physician; When: 1 - 2 days; Reason: Worsening of condition, Recheck today's complaints, Re-evaluation by your physician. Follow up: Lisa Burton MD; When: 1 - 2 days; Reason: Worsening of condition, Recheck today's complaints. - Problem is chronic. - Symptoms have improved. Signatures: Dispatcher [employer] EDDorina Michael RN RN sv Bryson, James, RN RN jb4 Manas Hernandez MD MD mh7 Corrections: (The following items were deleted from the chart) 21:45 21:44 05/12/2020 21:44 Discharged to Home. Impression: Hypertension. Condition is mh7 Stable. Forms are Medication Reconciliation Form, Thank You Letter, Antibiotic Education, Prescription Opioid Use. Follow up: Private Physician; When: 1 - 2 days; Reason: Worsening of condition, Recheck today's complaints, Re-evaluation by your physician. Follow up: Lisa Burton; When: 1 - 2 days; Reason: Worsening of condition, Recheck today's complaints. Problem is chronic. Symptoms have improved. [facility] 22:09 21:45 05/12/2020 21:44 Discharged to Home. Impression: Hypertension; Back Pain. jb4 Condition is Stable. Forms are Medication Reconciliation Form, Thank You Letter, Antibiotic Education, Prescription Opioid Use. Follow up: Private Physician; When: 1 - 2 days; Reason: Worsening of condition, Recheck today's complaints, Re-evaluation by your physician. Follow up: Lisa Burton; When: 1 - 2 days; Reason: Worsening of condition, Recheck today's complaints. Problem is chronic. Symptoms have improved. mh7
[2020-05-12 22:21] VITALS: TEMP 97; O2SAT 100
[2020-05-12 22:27] VITALS: BP 161/95
--- NOTE | 2020-05-14 07:20 | EKG ---
Test Date: 2020-05-12 Test Time: 19:42:42 Consulting Services Manager: KATIE MEASUREMENT RESULTS: Intervals: Rate: 75 WI: 156 QRSD: 100 QT: 388 QTc: 433 [place]: P: 66 WI: 156 QRS: 65 T: 55 INTERPRETIVE STATEMENTS: Normal sinus rhythm Possible Left atrial enlargement Left ventricular hypertrophy Abnormal ECG No previous ECG available for comparison Electronically Signed On 05-14-20 07:16:07 CDT by Jesus Barkley
== END 2020-05-12 22:09 | disposition home or self-care (01) ==
LOC: ER 18:51
DX: I10 Essential (primary) hypertension (principal); M54.9 Dorsalgia, unspecified; Z21 Asymptomatic human immunodeficiency virus [HIV] infection status; F25.9 Schizoaffective disorder, unspecified; Z88.5 Allergy status to narcotic agent; Z88.8 Allergy status to other drugs, medicaments and biological substances; Z72.0 Tobacco use
CPT/HCPCS: 36415; 71045; 80048; 80076; 80307; 81003; 83735; 83880; 84484; 85025; 85610; 93005; 99284

== ENCOUNTER 2020-08-15 10:30 | Emergency (ER) | payer OTHER ==
--- NOTE | 2020-08-15 11:08 | EDPHYS ---
Physician Documentation [facility] Name: Bakari Mcintosh Age: 45 yrs Sex: Male : 1975 Arrival Date: 08/15/2020 Time: 10:32 Bed 20 Private MD: ED Physician Anibal Moreno HPI: 08/15 11:04 This 45 yrs old Male presents to ER via EMS with complaints of Nausea. snw 11:04 The patient presents to the emergency department with nausea, that is moderate. Onset: snw The symptoms/episode began/occurred gradually, and became persistent. Possible causes: unknown. The symptoms are aggravated by nothing. Severity of symptoms: At their worst the symptoms were mild moderate. It is unknown whether or not the patient has had similar symptoms in the past. It is unknown whether or not the patient has recently seen a physician. pt noncompliant with medication regimen. . Historical: - Allergies: 10:36 Geodon; bp 10:36 Haldol; bp 10:36 Risperdal; bp - Home Meds: 10:36 None [Active]; bp - PMHx: 10:36 brown reculse bite; HERPES; genital and cold sores; HIV; Hypertension; schizoaffective; bp - Immunization history:: Adult Immunizations not up to date. - Social history:: Smoking status: Patient reports the use of cigarette tobacco products, unknown amount. ROS: 11:04 Constitutional: Negative for fever, chills, and weight loss, Eyes: Negative for injury, snw pain, redness, and discharge, ENT: Negative for injury, pain, and discharge, Neck: Negative for injury, pain, and swelling, Cardiovascular: Negative for chest pain, palpitations, and edema, Respiratory: Negative for shortness of breath, cough, wheezing, and pleuritic chest pain, Back: Negative for injury and pain, : Negative for injury, bleeding, discharge, and swelling, MS/Extremity: Negative for injury and deformity, Skin: Negative for injury, rash, and discoloration, Neuro: Negative for headache, weakness, numbness, tingling, and seizure, Psych: Negative for depression, anxiety, suicide ideation, homicidal ideation, and hallucinations. 11:04 Abdomen/GI: Positive for nausea. Exam: 11:02 Constitutional: This is a well developed, thin patient who is awake, alert, and in no snw acute distress. Pt not inclined to answer many questions. Pt states the medications his Doctor gave him made him sick so he stopped taking them and hasn't been on any in some time. Head/Face: Normocephalic, atraumatic. Eyes: Pupils equal round and reactive to light, extra-ocular motions intact. Lids and lashes normal. Conjunctiva and sclera are non-icteric and not injected. Cornea within normal limits. Periorbital areas with no swelling, redness, or edema. ENT: Nares patent. No nasal discharge, no septal abnormalities noted. Tympanic membranes are normal and external auditory canals are clear. Oropharynx with no redness, swelling, or masses, exudates, or evidence of obstruction, uvula midline. Mucous membranes moist. Neck: Trachea midline, no thyromegaly or masses palpated, and no cervical lymphadenopathy. Supple, full range of motion without nuchal rigidity, or vertebral point tenderness. No Meningismus. Chest/axilla: Normal chest wall appearance and motion. Nontender with no deformity. No lesions are appreciated. Cardiovascular: Regular rate and rhythm with a normal S1 and S2. No gallops, murmurs, or rubs. Normal PMI, no JVD. No pulse deficits. Respiratory: Lungs have equal breath sounds bilaterally, clear to auscultation and percussion. No rales, rhonchi or wheezes noted. No increased work of breathing, no retractions or nasal flaring. Abdomen/GI: Soft, non-tender, with normal bowel sounds. No distension or tympany. No guarding or rebound. No evidence of tenderness throughout. Pt clutching smokeless tobacco package to his chest. Back: No spinal tenderness. No costovertebral tenderness. Full range of motion. Skin: Warm, dry with normal turgor. Normal color with no rashes, no lesions, and no evidence of cellulitis. MS/ Extremity: Pulses equal, no cyanosis. Neurovascular intact. Full, normal range of motion. Neuro: Awake and alert, GCS 15, oriented to person, place, time, and situation. Cranial nerves II-XII grossly intact. Motor strength 5/5 in all extremities. Sensory grossly intact. Cerebellar exam normal. Normal gait. Psych: Awake, alert, with orientation to person, place and time. Behavior, mood, and affect are within normal limits. Vital Signs: 10:33 BP 158 / 112; Pulse 82; Resp 16; Temp 98; Pulse Ox 98% ; bp 11:32 BP 166 / 101; Pulse 65; Resp 16; Temp 98; Pulse Ox 99% ; bp MDM: 10:56 Patient medically screened. snw 11:05 Data reviewed: vital signs, nurses notes. Data interpreted: Pulse oximetry: on room air snw is 98 %. Interpretation: normal. Counseling: I had a detailed discussion with the patient and/or guardian regarding: the historical points, exam findings, and any diagnostic results supporting the discharge/admit diagnosis, the presence of at least one elevated blood pressure reading (>120/80) during this emergency department visit, the need for outpatient follow up, to return to the emergency department if symptoms worsen or persist or if there are any questions or concerns that arise at home. Special discussion: Based on the history and exam findings, there is no indication for further emergent testing or inpatient evaluation. I discussed with the patient/guardian the need to see the primary care provider for further evaluation of the symptoms. Administered Medications: 11:15 Drug: Phenergan 25 mg Route: PO; bp 11:51 Follow up: Response: Nausea is decreased bp 11:15 Drug: cloNIDine 0.1 mg Route: PO; bp 11:51 Follow up: Response: No adverse reaction bp Disposition: 14:52 Co-signature as Attending Physician, Anibal Moreno MD. rn Disposition: 08/15/20 11:07 Discharged to Home. Impression: Nausea, Malaise and fatigue, Essential (primary) hypertension. - Condition is Stable. - Discharge Instructions: Hypertension, Nausea, Adult, Fatigue, DASH Eating Plan, Rehydration, Adult, Managing Your Hypertension. - Prescriptions for promethazine 25 mg Oral Tablet - take 1 tablet by ORAL route every 6 hours As needed; 20 tablet. - Medication Reconciliation Form, Thank You Letter, Antibiotic Education, Prescription Opioid Use form. - Follow up: Emergency Department; When: As needed; Reason: Worsening of condition. Follow up: Private Physician; When: 2 - 3 days; Reason: Recheck today's complaints, Continuance of care, Re-evaluation by your physician. Signatures: Isela Bell, COLLAR CLOSER LOCKSTITCH-C COLLAR CLOSER LOCKSTITCH-Csnw Anibal Moreno MD MD rn Peltier, Brian, RN RN bp Corrections: (The following items were deleted from the chart) 11:10 11:02 Constitutional: This is a well developed, thin patient who is awake, alert, and snw in no acute distress. Pt not inclined to answer many questions. Pt states the medications his Doctor gave him made him sick so he stopped taking them and hasn't been on any in some time. Head/Face: Normocephalic, atraumatic. Eyes: Pupils equal round and reactive to light, extra-ocular motions intact. Lids and lashes normal. Conjunctiva and sclera are non-icteric and not injected. Cornea within normal limits. Periorbital areas with no swelling, redness, or edema. ENT: Nares patent. No nasal discharge, no septal abnormalities noted. Tympanic membranes are normal and external auditory canals are clear. Oropharynx with no redness, swelling, or masses, exudates, or evidence of obstruction, uvula midline. Mucous membranes moist. Neck: Trachea midline, no thyromegaly or masses palpated, and no cervical lymphadenopathy. Supple, full range of motion without nuchal rigidity, or vertebral point tenderness. No Meningismus. Chest/axilla: Normal chest wall appearance and motion. Nontender with no deformity. No lesions are appreciated. Cardiovascular: Regular rate and rhythm with a normal S1 and S2. No gallops, murmurs, or rubs. Normal PMI, no JVD. No pulse deficits. Respiratory: Lungs have equal breath sounds bilaterally, clear to auscultation and percussion. No rales, rhonchi or wheezes noted. No increased work of breathing, no retractions or nasal flaring. Abdomen/GI: Soft, non-tender, with normal bowel sounds. No distension or tympany. No guarding or rebound. No evidence of tenderness throughout. Back: No spinal tenderness. No costovertebral tenderness. Full range of motion. Skin: Warm, dry with normal turgor. Normal color with no rashes, no lesions, and no evidence of cellulitis. MS/ Extremity: Pulses equal, no cyanosis. Neurovascular intact. Full, normal range of motion. Neuro: Awake and alert, GCS 15, oriented to person, place, time, and situation. Cranial nerves II-XII grossly intact. Motor strength 5/5 in all extremities. Sensory grossly intact. Cerebellar exam normal. Normal gait. Psych: Awake, alert, with orientation to person, place and time. Behavior, mood, and affect are within normal limits. snw 11:57 11:07 08/15/2020 11:07 Discharged to Home. Impression: Nausea; Malaise and fatigue; bp Essential (primary) hypertension. Condition is Stable. Forms are Medication Reconciliation Form, Thank You Letter, Antibiotic Education, Prescription Opioid Use. Follow up: Emergency Department; When: As needed; Reason: Worsening of condition. Follow up: Private Physician; When: 2 - 3 days; Reason: Recheck today's complaints, Continuance of care, Re-evaluation by your physician. snw
--- NOTE | 2020-08-15 11:08 | ER ---
Nurse's Notes [facility] Name: Bakari Mcintosh Age: 45 yrs Sex: Male : 1975 Arrival Date: 08/15/2020 Time: 10:32 Bed 20 Private MD: Diagnosis: Nausea;Malaise and fatigue;Essential (primary) hypertension Presentation: 08/15 10:33 Chief complaint: EMS states: 45WM, NON-COMPLIANT HTN AND HIV, C/O NAUSEA AND GENERAL bp MYALGIA. Coronavirus screen: At this time, the client does not indicate any symptoms associated with coronavirus-19. Ebola Screen: No symptoms or risks identified at this time. Initial Sepsis Screen: Does the patient meet any 2 criteria? No. Patient's initial sepsis screen is negative. Does the patient have a suspected source of infection? No. Patient's initial sepsis screen is negative. Risk Assessment: Do you want to hurt yourself or someone else? Patient reports no desire to harm self or others. Onset of symptoms is unknown. 10:33 Method Of Arrival: EMS: [email or web address] bp 10:33 Acuity: FREDERIC 3 bp 10:37 Care prior to arrival: Glucose check: 93. bp Triage Assessment: 10:36 General: Appears distressed, uncomfortable, Behavior is cooperative, appropriate for bp age, anxious. Pain: Complains of pain in GENERALIZED. EENT: No deficits noted. Neuro: No deficits noted. Cardiovascular: No deficits noted. Respiratory: No deficits noted. GI: Reports nausea. : No signs and/or symptoms were reported regarding the genitourinary system. Derm: No deficits noted. Musculoskeletal: No deficits noted. Historical: - Allergies: 10:36 Geodon; bp 10:36 Haldol; bp 10:36 Risperdal; bp - Home Meds: 10:36 None [Active]; bp - PMHx: 10:36 brown reculse bite; HERPES; genital and cold sores; HIV; Hypertension; schizoaffective; bp - Immunization history:: Adult Immunizations not up to date. - Social history:: Smoking status: Patient reports the use of cigarette tobacco products, unknown amount. Screenin:38 Abuse screen: Denies threats or abuse. Denies injuries from another. Nutritional bp screening: No deficits noted. Tuberculosis screening: Risk factors:. Fall Risk None identified. Assessment: 10:38 General: SEE TRIAGE NOTE. bp 11:22 Reassessment: D/C ON HOLD FOR MED ADMINISTRATION. bp 11:56 Reassessment: PT D/C HOME AMBULATORY, DX WITH HTN. GI: Abdomen is non-distended. bp Vital Signs: 10:33 BP 158 / 112; Pulse 82; Resp 16; Temp 98; Pulse Ox 98% ; bp 11:32 BP 166 / 101; Pulse 65; Resp 16; Temp 98; Pulse Ox 99% ; bp ED Course: 10:32 Patient arrived in ED. bp 10:35 Triage completed. bp 10:36 Arm band placed on. bp 10:38 Patient has correct armband on for positive identification. Bed in low position. Call bp light in reach. Side rails up X2. 10:48 Isela Bell FNP-C [facility]. snw 10:48 Anibal Moreno MD is Attending Physician. snw 11:08 Chun Brown, RN is Primary Nurse. bp 11:56 No provider procedures requiring assistance completed. Patient did not have IV access bp during this emergency room visit. Administered Medications: 11:15 Drug: Phenergan 25 mg Route: PO; bp 11:51 Follow up: Response: Nausea is decreased bp 11:15 Drug: cloNIDine 0.1 mg Route: PO; bp 11:51 Follow up: Response: No adverse reaction bp Outcome: 11:07 Discharge ordered by . snw 11:56 Discharged to home ambulatory. bp 11:56 Condition: stable 11:56 Discharge instructions given to patient, Instructed on discharge instructions, follow up and referral plans. medication usage, Demonstrated understanding of instructions, follow-up care, medications, Prescriptions given X 1. 11:57 Patient left the ED. bp Signatures: Isela Bell FNP-C PLANT ECOLOGIST-Csnw Chun Brown, RN RN bp
[2020-08-15] MEDS ORDERED: PROMETHAZINE 25 MG TABLET ONE (11:31)
[2020-08-15] MEDS ORDERED: cloNIDine HCL 0.1 MG TAB ONE (11:31)
[2020-08-15 12:02] VITALS: TEMP 98
[2020-08-15 12:03] VITALS: BP 166/101; O2SAT 99
--- OUTSIDE RECORDS SUMMARY | 2020-08-20 19:51 | XMS REPORT | Continuity of Care Document ---
:1975 Author Organization [employer] Care Team Providers Name Role Phone [employer] Unavailable Un available Problems Problem Status Onset [...] Location Location Encounter Encounter Reason Attending ADM [place] Stat us Source Details Type Number For Provider Date Date Visit Rosalino Doherty FX FOREAMRS [id number] 10/26 10/26 Rosalino Martinez MD [id number] C L ock [id number] Procedures No Data Provided for This [...]
--- OUTSIDE RECORDS SUMMARY | 2020-08-20 19:51 | XMS REPORT | Clinical Summary ---
:1975 Author Organization [facility] Address [address] [place] [address] Care Team Providers Name Role Phone Asked, No Pcp Primary Care Provider Unavailable Allergies Active Allergy Reactions Severity Noted Date Comments Ziprasidone Hcl Other (See Comments) 01/24/2017 Blur red Vision Haloperidol Other (See Comments) 01/24/2017 Muscle tightness Risperidone 01/24/2017 Medications Medication Sig Dispensed Refills Start Date End Date Status albuterol (PROAIR Inhale 2 puffs 1 Inhaler 0 05/14/20202019 HFA) 90 every 4 (four) mcg/actuation hours as needed inhaler for wheezing for up to 30 days. Active Problems Problem Noted Date HIV (human immunodeficiency virus infection) 9 Schizophrenia 01/16/2019 Dyspnea 01/15/2019 Rash 01/15/2019 Encounters Date Type Specialty Care Team Description 05/14/2020 Emergency Emergency Medicine Wilman Larson spected Covid-19 Virus Infection (Primary Dx); MD Lucita Essential hypertension 05/14/2020 Travel after 08/20/2019 Surgical History Surgery Date Site/Laterality Comments TONSILLECTOMY Medical History Medical History Date Comments Schizophrenia (HCC) Hypertension HIV (human immunodeficiency virus infection) (HCC) Social History Tobacco Use Types Packs/Day Years Used Date Current Every Day Smoker Smokeless Tobacco: Never Used Alcohol Use Drinks/Week oz/Week Comments No Sex Assigned at Date Recorded Not on file Last Filed Vital Signs Vital Sign Reading Time Taken Comments Blood Pressure 173/93 05/14/2020 3:45 AM CDT Pulse 65 05/14/2020 3:45 AM CDT Temperature 36.4 C (97.6 F) 05/14/2020 3:45 AM CDT Respiratory Rate 20 05/14/2020 3:45 AM CDT Oxygen Saturation 99% 05/14/2020 3:45 AM CDT Inhaled Oxygen Concentration - - Weight - - Height - - Body Mass Index - - Plan of Treatment Health Maintenance Due Date Last Done Comments INFLUENZA VACCINE 06/14/2020 Procedures Procedure Name Priority Date/Time Associated Comments Diagnosis XR CHEST 1 VW STAT 05/14/2020 2:12 Results fo r this PORTABLE AM CDT procedure are i n the results section. RESPIRATORY PATHOGEN Routine 05/14/2020 1:50 Res ults for this PANEL AM CDT procedure are i n the results section. STREP SCREEN CULTURE Routine 05/14/2020 1:50 Res ults for this AM CDT procedure are i n the results section. INFLUENZA ANTIGEN Routine 05/14/2020 1:50 Result s for this TEST, REFLEX NEGATIVE AM CDT proced ure are in TO RPP the results section. GROUP A STREP, RAPID Routine 05/14/2020 1:50 Res ults for this ANTIGEN AM CDT procedure are i n the results section. COVID-19 QUALITATIVE STAT 05/14/2020 1:50 Res ults for this PCR AM CDT procedure are i n the results section. after 08/20/2019 Results XR Chest 1 Vw Portable (05/14/2020 2:12 AM CDT) Specimen Narrative Performed At EXAMINATION: XR CHEST 1 VW PORTABLE [facility] CLINICAL HISTORY: SOB COMPARISON: 01/15/2019 IMPRESSION: No consolidations, effusions, or pneumot horax. Cardiomediastinal silhouette is within n ormal limits. No acute osseous abnormalities. [id number] Procedure Note Hm Interface, Radiology Results Incoming - 05/14/2020 2:19 AM CDT EXAMINATION: XR CHEST 1 VW PORTABLE CLINICAL HISTORY: SOB COMPARISON: 01/15/2019 IMPRESSION: No consolidations, effusions, or pneumot horax. Cardiomediastinal silhouette is within n ormal limits. No acute osseous abnormalities. [id number] Performing Organization Address City/State/ZIP Code Phon e Number [facility] [address] [place] [address] Respiratory pathogen panel (05/14/2020 1:50 AM CDT) Adenovirus PCR Not Detected [facility] Comment: [facility] Specimen Information HOSPITAL Specimen Source: Nares Specimen Site: Right Coronavirus HKU1 PCR Not Detected [facility] Coronavirus NL63 PCR Not Detected [facility] Coronavirus 229E PCR Not Detected [facility] Coronavirus OC43 PCR Not Detected [facility] Human metapneumovirus Not Detected [facility] Human Not Detected [facility] rhinovirus/enterovirus [facility] Influenza A PCR Not Detected [facility] Influenza A/H1 PCR Not Reported [facility] Influenza A/H3 PCR Not Reported [facility] Influenza A/H1-2009 PCR Not Reported [facility] Influenza B PCR Not Detected [facility] Parainfluenza virus 1 Not Detected [facility] Parainfluenza virus 2 Not Detected [facility] Parainfluenza virus 3 Not Detected [facility] Parainfluenza virus 4 Not Detected [facility] Respiratory syncytial Not Detected [facility] virus PCR [facility] Bordetella pertussis Not Detected [facility] Bordetella Not Detected [facility] parapertussis PCR [facility] Chlamydia pneumoniae Not Detected [facility] Mycoplasma pneumoniae Not Detected [facility] Influenza A no sub type Not Reported [facility] Specimen Nares - Right Performing Organization Address City/[facility] Phon e Number [facility] DEPARTMENT OF PATHOLOGY AND [address] [place], [place] [address] GENOMIC [address]ICINE [address] [address] Influenza antigen test, reflex negative to RPP (05/14/2020 1:50 AM CDT) Influenza antigen Negative for Influenza A/B antigen. [facility] Comment: [facility] Specimen Information Specimen Source: Nares Specimen Site: Right Specimen Nares - Right Performing Organization Address City/[facility] Phon e Number [facility] DEPARTMENT OF PATHOLOGY AND [address] [place], [place] [address] GENOMIC MEDICINE [facility] [address] [place], [place] [address] COVID-19 qualitative PCR (05/14/2020 1:50 AM CDT) Interpretation Negative results do not prec lude 2019-nCoV infection and should not be used as the sole basis for treatment or other patient management decisions. Negative results must be combined with clinical observations, patient history, and epidemiological RODRIGUEZ information. [facility] COVID-19 qualitative Not-Detected Not-Detecte [facility] PCR result d [facility] COVID-19 qualitative See link below for [facility] PCR PDF Lab [facility] ReportComment: Case HOSPITAL Number: [id number] Specimen Performing Organization Address City/[facility]/ZIP Code Phon e Number [facility] DEPARTMENT OF PATHOLOGY AND [address] [place], [place] [address] [facility] [address] [place] [address] [facility] Group A strep, rapid antigen (05/14/2020 1:50 AM CDT) Group A strep, Negative for Group A Streptococcus antig en. All negative Group A [facility] rapid antigen Streptococcus antigen screens are [facility] result confirmed by culture. Comment: Specimen Information Specimen Source: Throat Specimen Site: Not otherwise specified Specimen Throat - Not otherwise specified Performing Organization Address City/[facility] Phon e Number [facility] DEPARTMENT OF PATHOLOGY AND [address] [place], [place] [address] [facility] [address] [place], [place] [address] Strep screen culture (05/14/2020 1:50 AM CDT) Strep screen No beta hemolytic Streptococci isolated H JEANNA [facility] culture isolate Comment: HOSPITAL Specimen Information Specimen Source: Throat Specimen Site: Not otherwise specified Specimen Throat - Not otherwise specified Performing Organization Address City/[facility] Phon e Number [facility] DEPARTMENT OF PATHOLOGY AND [address], [place] [address] [facility] [address] [place] [address] after 08/20/2019 Insurance Payer Benefit Plan / Subscriber ID Effective Phone Address T ype Group Dates MEDICAID MEDICAID [id number] 2011-Prese Medic aid nt CIGNA CIGNA [id number] 2019-Prese O [facility] nt MCR ADV Advance Directives For more information, please contact: [phone] Type Date Recorded Patient Fit Model Explanati on Advance Directives, Living Will 01/15/2019 2:27 PM and Medical Power of Cardiology Technologist
--- OUTSIDE RECORDS SUMMARY | 2020-08-20 19:51 | XMS REPORT | Clinical Summary ---
:1975 Author Organization [facility] Address [address] [place] [address] Care Team Providers Name Role Phone Pcp [...] Not on file Results Not on fileafter 08/20/2019 Insurance Payer Benefit Plan / Group Subscriber ID Type Phone A ddress [employer] ALL xxxxxxxx Maps Contracted
--- OUTSIDE RECORDS SUMMARY | 2020-08-20 19:51 | XMS REPORT | Clinical Summary ---
:1975 Author Organization [facility] ict Address [facility] [place] [address] Care Team Providers Name Role Phone Unavailable [...] yrs) 08/14/2020 08/04/2010 Results Not on fileafter 08/20/2019 Insurance Payer Benefit Plan / Subscriber ID Effective Phone Address T ype Group Dates Libretto xxxxxxxx 2018-Prese [phone] [address] [place] [address] [place] [address] [place] MEDICA[place] [id number] QUALIFIED xxxxxxxxx 2011-Prese [phone] [id number] [place] [address]
--- OUTSIDE RECORDS SUMMARY | 2020-08-20 19:52 | XMS REPORT | Continuity of Care Document ---
:[address] [facility] t Address 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 arris error error 0-27 Health 00:00: 00 Obesity Obesity Disease Active 2009-11 Peña 0-27 Health 00:00: 00 Nicotine Nicotine Disease Active 2009-11 Harri s addiction addiction 0-27 Heal th 00:00: 00 Tattoo Tattoo Disease Active 2009-11 Peña 0-27 Health 00:00: 00 Acne Acne Disease Active 2009-11 [place] 0-27 Health 00:00: 00 Health Health Disease Active 2009-11 Overview: Casey maintenanc maintenanc 0-27 PSA\Recta Health e e 00:00: l Exam : examinatio examinatio 00 08/23 n n refusedFO BT (50 + Annual):n aCholeste rol (20 + every 5 yrs):orde [id number] : naMicroal bumin: naLast Td/Dtap: orderedFl u Vaccine (Annual): 07/24Pneum ovax: naLast PPD (yearly 1-35): 06/23Diabe tic Foot Exam (Annual): naDiabeti c Eye Exam (Annual): na EKG (Over 40 yrs Old) None Unspecifie Diagnosis Active 2016-11-23 Memoria d fracture 05:14:21 l of shaft [place] of Unspecifie humerus, d fracture right arm, of shaft initial of encounter humerus, for closed right arm, fracture initial encounter for closed fracture Active Diagnosis 11/23/2016 Rosalino Martinez Unspecifie Diagnosis Active 2016-11-23 Memoria d fracture 05:14:21 l of shaft [place] of Unspecifie humerus, d fracture left arm, of shaft initial of encounter humerus, for closed left arm, fracture initial encounter for closed fracture Active Diagnosis 11/23/2016 Rosalino Martinez Essential Problem Active 2016-11-23 Me moria (primary) 05:14:21 l hypertensi Yobani n on Essential (primary) hypertensi on Active Problem 7 Rosalino Martinez Psychosis, Diagnosis Active 2016-11-23 Memoria unspecifie 05:14:21 l d Kyree psychosis Psychosis, type unspecifie d psychosis type Active Diagnosis 11/23/2016 Rosalino Martinez Schizo Schizo Disease Active [place] affective affective Heal th schizophre schizophre junito junito Bipolar Bipolar Disease Active [place] disorder disorder Health Allergies, Adverse Reactions, Alerts Allergy Allergy Status Severity Reaction(s) Onset Inactive Treating Comm ents Source Name Type Date Date Clinician N.K.D.A. N.K.D.A. Active Info Not 2015-11 Tico vanessa Available 2-13 l 00:00: Kyree ziprasid DA Active [facility] one 04-05 00:00: [address] Family History Family Member Diagnosis Comments Start Date Stop Date Source unknown Unknown Fam Hx [facility] Unknown Family Family History 2016-11-23 2016-11-23 Memori al [place] Member 05:14:21 05:14:21 Social History Social Habit Start Date Stop Date Quantity Comments Source History of tobacco Cigarette Smoker [facility] use Sex Assigned [facility] TobaccoUse: 2016-10-26 2016-10-26 [facility] 00:00:00 00:00:00 Cigarettes smoked 2010-09-09 2010-09-09 [facility] current (pack per 00:00:00 00:00:00 day) - Reported Alcohol intake 2010-09-09 2010-09-09 Current [facility] 00:00:00 00:00:00 non-drinker of alcohol (finding) Smoking Status Start Date Stop Date Source Current every day smoker 2010-09-09 00:00:00 [facility] Medications Ordered Filled Start Stop Current Ordering Indication Dosage Frequency Signature Comments Components Source Medication Medication Date Date Medication? Clinician (SIG) Name Name omeprazole Yes 20mg QD Take [address] (PRILOSEC) 7-21 by mouth [facility] - 20 MG 21:58: daily. Medical capsule [address] [place] [address] Atenolol 2015-11 Yes Rosalino 1 tablet Me moria 2-13 Lock l 00:00: Kyree 00 trifluopera 2009-11 Yes 5mg Q.5D Take 5 mg H arris zine 0-27 by mouth 2 Health (STELAZINE) 10:14: times [...] Commen ts Source Name Name PPD 2011-12-28 [facility] 00:00:00 Tdap Tetanus, 2010-09-09 Completed [facility] th diphtheria, 00:00:00 acellular pertussis Vaccine Influenza Vaccine 2010-08-04 [facility] 00:00:00 Vital Signs Vital Name Observation Time Observation Value Comments Source Weight 2016-10-26 20:00:00 [facility] Height 2016-10-26 20:00:00 [facility] Heart Rate 2016-10-26 20:00:00 [facility] Diastolic (mm Hg) 2016-10-26 20:00:00 Mem orial Kyree Systolic (mm Hg) 2016-10-26 20:00:00 Tico rial [place] Procedures This patient has no known procedures. Plan of Care Planned Activity Planned Date Details Comments Source Future Scheduled Test 2020-08-14 00:00:[address] [facility] Seasonal Aug to January (>/= 19 yrs) [code = IMM Influenza Seasonal Aug to January (>/= 19 yrs)] Encounters Start End Encounter Admission Attending Care Care Encounter Source Date/Time Date/Time Type Type Clinicians Facility Department ID 2020-05-14 2020-05-14 Emergency E [id number] 21:07:00 21:07:00 [facility] 2020-05-14 2020-05-14 Emergency [facility] [id number] [place] 00:00:00 00:00:00 [facility]26 2018-11-26 Emergency [facility] [id number] [place] 08:23:00 08:23:00 [facility] 2018-06-21 2018-06-21 Outpatient [facility] [id number] [place] 15:13:00 23:59:00 [facility] [place] 2018-01-04 2018-01-04 Outpatient [facility] [id number] [facility] 13:20:00 23:59:00 [facility]I [facility]RIAE [facility] [place] 2016-10-26 2016-10-26 Outpatient Rosalino Doherty [id number] 14:00:00 14:00:00 Michelle Jessica MD alWo richelle [facility]CIANO Results Test Description Test Test Results Result Source Time Comments Comments XR SPINE 2018-06- Cervical spine, 5 CERVICAL *NT* 08 viewsLocation code: [id number] 15:47:21 history: Neck pain after strainComments: AP, [...] series, 5 COMPLETE *NT* 21 viewsLocation Code: [id number] 14:55:51 HISTORY: M54.5: LOW BACK PAINCOMPARISON: None.COMMENTS: AP, oblique, and lateral views of the lumbar spine demonstrate noacute fracture or malalignment. The soft tissues are unremarkable.IMPRESSION: No acute radiographic abnormality. XR KNEE RIGHT 3 2017-12- Right knee, 3 viewsLocation VIEWS *NT* 21 Code: [id number] 14:55:19 HISTORY:M25.561: PAIN IN RIGHT KNEECOMMENTS: AP, lateral, and oblique views of the right knee demonstrate no acutefracture or malalignment. The soft tissues are unremarkable.IMPRESSION: No acute radiographic abnormality. XR FOOT RIGHT 2017-12- Right foot, 3 viewsLocation COMPLETE 3V *NT* 21 Code: [id number] HISTORY: 14:54:55 M79.671: PAIN IN RIGHT FOOTCOMMENTS: [...] 3 viewsLocation COMPLET 3V *NT* 21 Code: [id number] HISTORY: 14:53:52 Pain.COMMENTS: AP, lateral, and oblique views of the right ankle demonstrate noacute fracture or malalignment. Mild medial tibiotalar arthrosis is noted. Thesoft tissues are unremarkable.IMPRESSION: No acute radiographic abnormality. Mild arthrosis.
== END 2020-08-15 11:57 | disposition home or self-care (01) ==
LOC: ER 10:30
DX: R53.81 Other malaise (principal); R53.83 Other fatigue; I10 Essential (primary) hypertension; Z21 Asymptomatic human immunodeficiency virus [HIV] infection status; Z88.5 Allergy status to narcotic agent; Z88.8 Allergy status to other drugs, medicaments and biological substances
CPT/HCPCS: 99283; Q0169

== ENCOUNTER 2021-04-29 00:22 | Emergency (ER) | payer OTHER ==
--- OUTSIDE RECORDS SUMMARY | 2021-04-29 00:27 | XMS REPORT | Continuity of Care Document ---
:1975 Author Organization [facility] t Address [address] [place] [address] Care Team Providers Name Role Phone Pcp , Beryl Primary Care Physician Unavailable DR RAIN HIDALGO Attending Clinician Unavailable DR WARREN Attending Clinician Unavailable DR Margret BONILLA Attending Clinician Unavailable DR MANISH Attending Clinician Unavailable Lucita Larson MD Attending Clinician MD LUCITA LARSON Attending Clinician Unavailable Jacquelin HANLEY JR Attending Clinician Unavailable DR Radha HIDALGO Admitting Clinician Unavailable DR WARREN Admitting Clinician Unavailable DR Margret BONILLA Admitting Clinician Unavailable DR MANISH Admitting Clinician Unavailable MD LUCITA LARSON Admitting Clinician Unavailable Jacquelin HANLEY JR Admitting Clinician Unavailable Payers Payer Name Policy Type Policy Effective Date Expiration Source Number Date MEDICAIDMEDICAIDxxxxx1 [id number] 2011 sarai -PresentMed 00:00:00 Nh thodist icaid CIGNA [id number] [facility] [id number] 2020-Pr esentHMO Problems Condition Condition Condition Status Onset Resolution Last Treating Co mments Source Name Details Category Date Date Treatment Clinician Date 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 00:00: st virus virus 00 infection) infection) Schizophre Schizophre Disease Active H radha junito junito 3-05 Methodi 00:00: st 00 Dyspnea Dyspnea Disease Active [facility] 3-04 Methodi 00:00: st 00 Rash Rash Disease Active [place] 3-04 Methodi 00:00: st 00 Lump or Lump or Disease Active 2009-11 [place] mass in mass in 0-27 Health breast [...] 00 Acne Acne Disease Active 2009-11 Peña 027 Health 00:00: 00 Health Health Disease Active 2009-11 Overview: [facility] e e 00:00: g of this examinatio examinatio 00 note n n might be different from the original. PSA\Recta l Exam : 08/23 refusedFO BT (50 + Annual):n aCholeste rol (20 + every 5 yrs):orde [id number] : naMicroal bumin: naLast Td/Dtap: orderedFl u Vaccine (Annual): 07/24Pneum ovax: naLast PPD (yearly 1-35): 06/23Diabe tic Foot Exam (Annual): naDiabeti c Eye Exam (Annual): na EKG (Over 40 yrs Old) None Unspecifie Diagnosis Active 2016-11-23 Memoria d fracture 05:14:21 l of shaft [place] of Unspecifie humerus, d fracture right arm, of shaft initial of encounter humerus, for closed right arm, fracture initial encounter for closed fracture Active Diagnosis 11/23/2016 Rosalino Gramajo Lock Unspecifie Diagnosis Active 2016-11-23 Memoria d fracture 05:14:21 l of shaft [place] of Unspecifie humerus, d fracture left arm, of shaft initial of encounter humerus, for closed left arm, fracture initial encounter for closed fracture Active Diagnosis 11/23/2016 Rosalino Martinez Essential Problem Active 2016-11-23 Me moria (primary) 05:14:21 l hypertensi Yobani n on Essential (primary) hypertensi on Active Problem 7 Rosalino Rox Martinez Psychosis, Diagnosis Active 2016-11-23 Memoria unspecifie 05:14:21 l d [place] psychosis Psychosis, type unspecifie d psychosis type Active Diagnosis 11/23/2016 Rosalino Gramajo Michelle Schizo Schizo Disease Active [place] affective affective Heal th schizophre schizophre junito junito Bipolar Bipolar Disease Active [place] disorder disorder Health Allergies, Adverse Reactions, Alerts Allergy Allergy Status Severity Reaction(s) Onset Inactive Treating Comm ents Source Name Type Date Date Clinician Ziprasid Propensi Active Other (See Blurred [place] one Hcl ty to Comments) 3-13 Vision Method i adverse 00:00: st reaction 00 s to drug Haloperi Propensi Active Other (See Muscle [place] dol ty to Comments) 3-13 tightness Meth kg adverse 00:00: st reaction 00 s to drug Risperid Propensi Active 2016- [place] one ty to 3-13 Methodi adverse 00:00: st reaction 00 s to drug N.K.D.A. N.K.D.A. Active Info Not 2015-11 Tico vanessa Available 2-13 l 00:00: [place] 00 ziprasid DA Active [place] [facility] 04-05 Corpus 00:00: [address] Family History Family Member Diagnosis Comments Start Date Stop Date Source unknown Unknown Fam Hx Peña Hea lth Unknown Family Family History 2016-11-23 2016-11-23 Memori al [place] Member 05:14:21 05:14:21 Social History Social Habit Start Date Stop Date Quantity Comments Source Sex Assigned At [facility] History of tobacco Cigarette Smoker [place] Mbaobao use Tobacco use and 2020-05-14 2020-05-14 Never used [facility] exposure 00:00:00 00:00:00 [facility] Alcohol intake 2018-06-03 2018-06-03 Current [facility] - 00:00:00 00:00:00 non-drinker of Medical Ce nter alcohol (finding) TobaccoUse: 2016-10-26 2016-10-26 [facility] 00:00:00 00:00:00 Cigarettes smoked 2010-09-09 2010-09-09 [facility] current (pack per 00:00:00 00:00:00 day) - Reported Smoking Status Start Date Stop Date Source Current every day smoker 2018-06-03 00:00:00 [facility] Medications Ordered Filled Start Stop Current Ordering Indication Dosage Frequency Signature Comments Components Source Medication Medication Date Date Medication? Clinician (SIG) Name Name albuterol 2020- No 2{puff} Q4H Inhale 2 [facility] (PROAIR 05-14 07-31 puffs Methodi HFA) 90 00:00: 23:[address] mcg/actuati 00 :00 (four) on inhaler hours as needed for wheezing for up to 30 days. omeprazole Yes 20mg QD Take [address] (PRILOSEC) 06-03 by [facility] - 20 MG 22:01: daily. Medical capsule [address] [place] [address] Atenolol 2015-11 Yes Rosalino 1 tablet Me moria 2-13 Lock l 00:00: [place] 00 trifluopera 2009-11 Yes 5mg Q.5D Take [...] Commen ts Source Name Name PPD 2011-12-28 [facility] 00:00:00 Tdap Tetanus, 2010-09-09 Completed [facility] th diphtheria, 00:00:00 acellular pertussis Vaccine Influenza Vaccine 2010-08-04 Completed [facility] 00:00:00 Vital Signs Vital Name Observation Time Observation Value Comments Source Systolic blood 2020-05-14 03:45:00 173 mm[Hg] Wolfgangto n [facility] pressure Diastolic blood 2020-05-14 03:45:00 93 mm[Hg] Wolfgangt on [facility] pressure Heart rate 2020-05-14 03:45:00 65 /min Cameron Joshi Body temperature 2020-05-14 03:45:00 36.44 Sariah [place] [facility] Respiratory rate 2020-05-14 03:45:00 20 /min [place] [facility] Oxygen saturation in 2020-05-14 03:45:00 99 /min Camreon Joshi Arterial blood by Pulse oximetry Weight 2016-10-26 20:00:00 [facility] [place] Height 2016-10-26 20:00:00 [facility] [place] Heart Rate 2016-10-26 20:00:00 [facility] Diastolic (mm Hg) 2016-10-26 20:00:00 [facility] [place] Systolic (mm Hg) 2016-10-26 20:00:00 Tico rial [place] Procedures Procedure Date / Time Performing Clinician Source Performed XR CHEST 1 VW PORTABLE 2020-05-14 02:12:40 Mary Ashby COVID-19 QUALITATIVE 2020-05-14 01:50:00 Mary Ashby PCR GROUP A STREP, RAPID 2020-05-14 01:50:00 Wilman Larson ANTIGEN [facility] INFLUENZA ANTIGEN TEST, 2020-05-14 01:50:00 Wilman Larson REFLEX NEGATIVE TO RPP [facility] STREP SCREEN CULTURE 2020-05-14 01:50:00 Wilman Larson [facility] RESPIRATORY PATHOGEN 2020-05-14 01:50:00 Wilman Larson PANEL WITH COVID-19 [facility] Plan of Care Planned Activity Planned Date Details Comments Source Future Scheduled 2021-08-14 IMM Influenza Seasonal H [facility] Test 00:00:00 Aug to January (>/= 19 yrs) [code = IMM Influenza Seasonal Aug to January (>/= 19 yrs)] Future Scheduled 2021-06-14 INFLUENZA VACCINE [place] [facility] Test 00:00:00 [code = INFLUENZA VACCINE] Future Scheduled 2020-07-15 INFLUENZA VACCINE (#1) [facility] 00:[facility]00 [code = INFLUENZA Medical Ce nter VACCINE (#1)] Future Scheduled 2018-11-[address] [facility] - Test 00:00:00 WELLNESS (YEAR 2 or Medical Center FIRST YEAR if no IPPE) [code = MEDICARE ANNUAL WELLNESS (YEAR 2 or FIRST YEAR if no IPPE)] Future Scheduled [address] [facility] Test 00:00:00 (procedure) [code = Medical Center [id number]] Future Scheduled 1985 COVID-19 Vaccine (1) [facility] [facility] Test 00:00:00 [code = COVID-19 Vaccine (1)] Future Scheduled 1985 COVID-19 VACCINE (1) [facility] Test 00:00:00 [code = COVID-19 VACCINE (1)] Future Scheduled [address] [facility] - Test 00:00:00 0-64 YRS (1 of 1 - Medical C enter PPSV23) [code = PNEUMOCOCCAL VACCINE 0-64 YRS (1 of 1 - PPSV23)] Encounters Start End Encounter Admission Attending Care Care Encounter Source Date/Time Date/Time Type Type Clinicians Facility Department ID 2020-11-17 2020-11-17 Emergency E GWEN [facility] [id number] [place] 15:49:00 17:03:00 [facility] 2020-10-02 2020-10-03 Emergency E KRUNAL KELLEY [facility] [id number] [place] 20:43:00 00:00:00 [facility] 2020-10-01 2020-10-01 Emergency E NICOLE BONILLA [facility] [id number] [place] 03:36:00 07:10:00 Medica [facility] 2020-09-18 2020-09-18 Emergency E KELLEYKRUNAL Olson [facility] [id number] [place] 21:02:00 22:31:00 [facility] [place] 2020-09-10 2020-09-10 Emergency E ELISA HAMMOND [facility] [id number] [place] 01:56:00 04:21:00 Medica l [place] 2020-05-14 2020-05-14 Emergency E KM KM [id number] Memoria 21:07:00 21:07:00 rebeca jose 2020-05-14 2020-05-14 Emergency LARSON, [facility] [id number] [place] 00:00:00 00:00:00 DAVID [place] 2018-11-26 2018-11-26 Emergency [facility] [id number] Peña 08:23:00 08:23:00 Health 2018-06-21 2018-06-21 Outpatient Rox HANLEY [facility] RAD [id number] [place] 15:13:00 23:59:00 DOUG ECHEVARRIA [facility] 2018-01-04 2018-01-04 Outpatient Rox HANLEY [facility] RAD [id number] [place] 13:20:00 23:59:00 DOUG ECHEVARRIA [facility] 2016-10-26 2016-10-26 Outpatient Rosalino GramajoRob [id number] [facility] 14:00:00 14:00:00 Michelle Jessica MD alWo richelle LUCIANO Results Test Description Test Time Test Comments Results Result Comments Source D-DIMER 2020-10-02 21:51:00 Test Item Value Reference Range Interpretation Comme nts D-DIMER (test code = DDI) <200 ng/mL D-DU 0-234 D-DIMER COMMENT (test code = DDCOM) *Level to rule out DVT or PE: < 235 ng/mL D-DU* PRO TIME AND [id number] 21:51:00 Test Item Value Reference Range Interpretation Comments PT (test code = 10.2 s 9.8-13.6 TT) INR (test code = 0.9 INR) INRH (test code = SUGGESTED INRH) THERAPEUTIC RANGE FOR INR: 2.5 - 3.5 For Patients with Prosthetic Valves or Patients with recurrent Thromboembolic Events 2.0 - 3.0 For Most Other Applications PTT (test code = 34.7 s 20.2-38.0 PTT) PTTH (test code = To monitor the PTTH) effectiveness of heparin, we offer the Anti-Xa (Heparin Assay). It can be used for either unfractionated or LMW Heparin. Order Code is ANTI-XA [id number] 21:38:00 Test Item Value Reference Range Interpretation Comments CPK (test code = 32A) 188 IU/L 39-308 TROPONIN [id number] 21:38:00 Test Item Value Reference Range Interpretation Comments TROPONIN I (test code = A84) <0.015 ng/mL 0.000-0.045 COMPREHENSIVE METABOLIC [id number] 21:38:00 Test Item Value Reference Range Interpretation Comments GLUCOSE (test code = 86 mg/dL 75-100 06D) SODIUM (test code = 138 mmol/L 136-145 01A) POTASSIUM (test code = 3.8 mmol/L 3.6-5.1 01B) CHLORIDE (test code = 107 mmol/L 98-107 04A) CO2 (test code = 02A) 26 mmol/L 22-32 ANION GAP (test code = 8.8 mmol/L ANG) BUN (test code = 05D) 24 mg/dL 7-18 H CREATININE (test code 0.9 mg/dL 0.7-1.3 = 03E) GFR (test code = GFR) 103 mL/min/1.73m\S\2 >=90 GFR 119 mL/min/1.73m\S\2 >=90 (test code = GFRAA) EGFR (test code = eGFR BY CKD-EPI EGFR) CALCULATION IS NOT RECOMMENDED FOR PATIENTS UNDER 18 YEARS OF AGE. BUN/CREA (test code = 28 12-20 H BCR) CALCIUM (test code = 8.5 mg/dL 8.3-9.5 09D) BILI TOTAL (test code 0.2 mg/dL 0.2-1.0 = 11A) PROTEIN (test code = 8.9 g/dL 6.4-8.2 H 07D) ALBUMIN (test code = 3.3 g/dL 3.5-4.8 L 08D) GLOBULIN (test code = 5.6 g/dL 1.5-3.8 H GLB) ALB/GLOB (test code = 0.6 1.0-2.6 L AGRR) ALK PHOS (test code = 101 IU/L 42-121 35A) AST (test code = 30A) 25 IU/L <=42 ALT (test code = 31A) 27 IU/L <=78 ALCOHOL BLOOD (ETOH)2020-10-02 21:35:00 Test Item Value Reference Range Interpretation Comments ETOH (test code = HALC) ETHANOL The result is to be used only for medical purposes ALCOHOL (test code = <10 mg/dL <=10 56A) [id number] 21:29:00 Test Item Value Reference Range Interpretation Comments MAGNESIUM (test code = 48A) 2.2 mg/dL 1.8-2.4 CBC (INCLUDES AUTOMATED DIFFERENTIAL)2020-10-02 21:25:00 Test Item Value Reference Range Interpretation Comments WBC (test code = WBC) 8.0 10\S\3/uL 4.5-11.0 RBC (test code = RBC) 4.14 10\S\6/uL 4.20-5.60 L HGB (test code = HBG) 12.5 g/dL 14.0-18.0 L HCT (test code = HCT) 36.5 % 35.0-46.0 MCV (test code = MCV) 88.2 fL 80.0-94.0 MCH (test code = MCH) 30.2 pg 27.0-31.0 MCHC (test code = MCHC) 34.2 g/dL 32.0-36.0 RDW (test code = RDW) 12.9 % 11.5-14.5 PLT (test code = PLT) 280 10\S\3/uL 130-400 MPV (test code = MPV) 9.6 fL 9.4-12.4 NEUTROP # (test code = NE#) 5.1 10\S\3/uL 2.0-8.0 LYMPH # (test code = LY#) 1.9 10\S\3/uL 1.2-4.0 MONOCYTE # (test code = MO#) 0.7 10\S\3/uL 0.0-1.1 EOSINOPH # (test code = EO#) 0.4 10\S\3/uL 0.0-0.7 BASOPHIL # (test code = BA#) 0.0 10\S\3/uL 0.0-0.3 IG # (test code = IG#) 0.03 10\S\3/uL 0.00-0.06 NRBC # (test code = NRBC#) 0.00 10\S\3/uL 0.00-0.01 NEUTROPH % (test code = NE%) 63.1 % 35.0-73.0 LYMPH % (test code = LY%) 23.2 % 20.0-55.0 MONO % (test code = MO%) 8.4 % 2.5-10.0 EOSINOPH % (test code = EO%) 4.5 % 0.0-5.0 BASOPHIL % (test code = BA%) 0.4 % 0.0-2.0 IG % (test code = IG%) 0.4 % 0.0-0.8 NRBC% (test code = NRBC%) 0.0 % 0.0-0.2 MANDIFF (test code = MDIFF) NO NO RBC MORPH (test code = RBCMOR) NORMAL URINALYSIS WITH [id number] 06:41:00 Test Item Value Reference Range Interpretation Comments COLOR (test code = COLU) YELLOW YELLOW CLARITY (test code = CLA) CLEAR CLEAR GLUCOSE UR (test code = UA GLUCOSE) NEGATIVE NEGATIVE BILI UR (test code = BILE) NEGATIVE NEGATIVE KETONES UR (test code = NAHED) NEGATIVE NEGATIVE SP GRAVITY (test code = SPGR) 1.012 1.005-1.030 PH UR (test code = PH) 6.5 4.5-8.0 PROTEIN UR (test code = PU) NEGATIVE NEGATIVE UROBIL UR (test code = UROQ) 0.2 EU/dL 0.2-1.0 NITRITE UR (test code = NITRITE) NEGATIVE NEGATIVE BLOOD UR (test code = UA BLOOD) 1+ NEGATIVE A LEUK ES UR (test code = LEUK) NEGATIVE NEGATIVE WBC UR (test code = UWBC) 0 /HPF 0-3 RBC UR (test code = URBC) 2 /HPF 0-2 EPITH UR (test code = UEPC) NONE /LPF NONE BACTERIA UR (test code = UBACT) NONE /HPF NONE CAST UR (test code = CAST) /LPF NONE CRYSTAL UR (test code = CRYU) / LPF NONE MUCUS UR (test code = MUC) / HPF NONE AMORPH UR (test code = ANGEL) / HPF NONE TRICH UR (test code = UTRICH) /HPF NONE YEAST UR (test code = UY) /HPF NONE SPERM UR (test code = USPERM) /HPF NONE DRUGS OF [id number] 06:39:00 Test Item Value Reference Range Interpretation Comments DRUG SCRN (test code URINE DRUG SCREEN = HDOA) This is an unconfirmed screening result and should not be used for non-medical purposes CANNABINOD (test code Negative NEGATIVE = 88C) AMPHETAMINE (test POSITIVE NEGATIVE A code = 84A) BENZODIAZP (test code Negative NEGATIVE = 86A) BARBITURAT (test code Negative NEGATIVE = 85A) OPIATES (test code = Negative NEGATIVE 92B) COCAINE (test code = POSITIVE NEGATIVE A 87A) PHENCYCLID (test code Negative NEGATIVE = 66A) METHADONE (test code Negative NEGATIVE = 64A) DOAH (test code = DOAH.) *URINE DRUG SCREEN Cut-off values are as follows: Cannabinoids 50 ng/mL Cocaine 300 ng/mL Amphetamines 1000 ng/mL Phencyclidine 25 ng/mL Benzodiazepines 200 ng.mL Methadone 300 ng/mL Barbiturates 200 ng/mL Opiates 2000 ng/mL [id number] 04:29:00 Test Item Value Reference Range Interpretation Comments ACETAMINPH (test code = 94M) <2.0 ug/mL 10.0-30.0 L COMPREHENSIVE METABOLIC [id number] 04:29:00 Test Item Value Reference Range Interpretation Comments GLUCOSE (test code = 83 mg/dL 75-100 06D) SODIUM (test code = 137 mmol/L 136-145 01A) POTASSIUM (test code = 4.5 mmol/L 3.6-5.1 01B) CHLORIDE (test code = 105 mmol/L 98-107 04A) CO2 (test code = 02A) 28 mmol/L 22-32 ANION GAP (test code = 8.5 mmol/L ANG) BUN (test code = 05D) 36 mg/dL 7-18 H CREATININE (test code 1.2 mg/dL 0.7-1.3 = 03E) GFR (test code = GFR) 70 mL/min/1.73m\S\2 >=90 L GFR 81 mL/min/1.73m\S\2 >=90 L (test code = GFRAA) EGFR (test code = eGFR BY CKD-EPI EGFR) CALCULATION IS NOT RECOMMENDED FOR PATIENTS UNDER 18 YEARS OF AGE. BUN/CREA (test code = 30 12-20 H BCR) CALCIUM (test code = 9.1 mg/dL 8.3-9.5 09D) BILI TOTAL (test code 0.4 mg/dL 0.2-1.0 = 11A) PROTEIN (test code = 9.9 g/dL 6.4-8.2 H 07D) ALBUMIN (test code = 3.8 g/dL 3.5-4.8 08D) GLOBULIN (test code = 6.1 g/dL 1.5-3.8 H GLB) ALB/GLOB (test code = 0.6 1.0-2.6 L AGRR) ALK PHOS (test code = 105 IU/L 42-121 35A) AST (test code = 30A) 38 IU/L <=42 ALT (test code = 31A) 33 IU/L <=78 ALCOHOL BLOOD (ETOH)2020-10-01 04:24:00 Test Item Value Reference Range Interpretation Comments ETOH (test code = HALC) ETHANOL The result is to be used only for medical purposes ALCOHOL (test code = <10 mg/dL <=10 56A) [id number] 04:21:00 Test Item Value Reference Range Interpretation Comments SALICYLATE (test code = 94B) 2.8 mg/dL 2.8-20.0 CBC (INCLUDES AUTOMATED DIFFERENTIAL)2020-10-01 04:09:00 Test Item Value Reference Range Interpretation Comments WBC (test code = WBC) 7.7 10\S\3/uL 4.5-11.0 RBC (test code = RBC) 4.46 10\S\6/uL 4.20-5.60 HGB (test code = HBG) 13.3 g/dL 14.0-18.0 L HCT (test code = HCT) 39.0 % 35.0-46.0 MCV (test code = MCV) 87.4 fL 80.0-94.0 MCH (test code = MCH) 29.8 pg 27.0-31.0 MCHC (test code = MCHC) 34.1 g/dL 32.0-36.0 RDW (test code = RDW) 12.7 % 11.5-14.5 PLT (test code = PLT) 305 10\S\3/uL 130-400 MPV (test code = MPV) 9.6 fL 9.4-12.4 NEUTROP # (test code = NE#) 4.7 10\S\3/uL 2.0-8.0 LYMPH # (test code = LY#) 1.9 10\S\3/uL 1.2-4.0 MONOCYTE # (test code = MO#) 0.9 10\S\3/uL 0.0-1.1 EOSINOPH # (test code = EO#) 0.2 10\S\3/uL 0.0-0.7 BASOPHIL # (test code = BA#) 0.0 10\S\3/uL 0.0-0.3 IG # (test code = IG#) 0.02 10\S\3/uL 0.00-0.06 NRBC # (test code = NRBC#) 0.00 10\S\3/uL 0.00-0.01 NEUTROPH % (test code = NE%) 60.9 % 35.0-73.0 LYMPH % (test code = LY%) 25.2 % 20.0-55.0 MONO % (test code = MO%) 11.3 % 2.5-10.0 H EOSINOPH % (test code = EO%) 2.0 % 0.0-5.0 BASOPHIL % (test code = BA%) 0.3 % 0.0-2.0 IG % (test code = IG%) 0.3 % 0.0-0.8 NRBC% (test code = NRBC%) 0.0 % 0.0-0.2 MANDIFF (test code = MDIFF) NO NO RBC MORPH (test code = RBCMOR) NORMAL ALCOHOL BLOOD (ETOH)2020-09-10 02:59:00 Test Item Value Reference Range Interpretation Comments ETOH (test code = HALC) ETHANOL The result is to be used only for medical purposes ALCOHOL (test code = <10 mg/dL <=10 56A) PRO TIME AND [id number] 02:56:00 Test Item Value Reference Range Interpretation Comments PT (test code = 9.8 s 9.8-13.6 TT) INR (test code = 0.9 INR) INRH (test code = SUGGESTED INRH) THERAPEUTIC RANGE FOR INR: 2.5 - 3.5 For Patients with Prosthetic Valves or Patients with recurrent Thromboembolic Events 2.0 - 3.0 For Most Other Applications PTT (test code = 33.7 s 20.2-38.0 PTT) PTTH (test code = To monitor the PTTH) effectiveness of heparin, we offer the Anti-Xa (Heparin Assay). It can be used for either unfractionated or LMW Heparin. Order Code is ANTI-XA DRUGS OF [id number] 02:50:00 Test Item Value Reference Range Interpretation Comments DRUG SCRN (test code URINE DRUG SCREEN = HDOA) This is an unconfirmed screening result and should not be used for non-medical purposes CANNABINOD (test code Negative NEGATIVE = 88C) AMPHETAMINE (test Negative NEGATIVE code = 84A) BENZODIAZP (test code Negative NEGATIVE = 86A) BARBITURAT (test code Negative NEGATIVE = 85A) OPIATES (test code = Negative NEGATIVE 92B) COCAINE (test code = Negative NEGATIVE 87A) PHENCYCLID (test code Negative NEGATIVE = 66A) METHADONE (test code Negative NEGATIVE = 64A) DOAH (test code = DOAH.) *URINE DRUG SCREEN Cut-off values are as follows: Cannabinoids 50 ng/mL Cocaine 300 ng/mL Amphetamines 1000 ng/mL Phencyclidine 25 ng/mL Benzodiazepines 200 ng.mL Methadone 300 ng/mL Barbiturates 200 ng/mL Opiates 2000 ng/mL BRAIN NATRIURETIC [id number] 02:44:00 Test Item Value Reference Range Interpretation Comments proBNP (test code = PBNP) 533 pg/mL 0-125 H TROPONIN [id number] 02:43:00 Test Item Value Reference Range Interpretation Comments TROPONIN I (test code = A84) <0.015 ng/mL 0.000-0.045 COMPREHENSIVE METABOLIC [id number] 02:40:00 Test Item Value Reference Range Interpretation Comments GLUCOSE (test code = 113 mg/dL 75-100 H 06D) SODIUM (test code = 138 mmol/L 136-145 01A) POTASSIUM (test code = 4.1 mmol/L 3.6-5.1 01B) CHLORIDE (test code = 104 mmol/L 98-107 04A) CO2 (test code = 02A) 31 mmol/L 22-32 ANION GAP (test code = 7.1 mmol/L ANG) BUN (test code = 05D) 14 mg/dL 7-18 CREATININE (test code 0.8 mg/dL 0.7-1.3 = 03E) GFR (test code = GFR) 105 mL/min/1.73m\S\2 >=90 GFR 122 mL/min/1.73m\S\2 >=90 (test code = GFRAA) EGFR (test code = eGFR BY CKD-EPI EGFR) CALCULATION IS NOT RECOMMENDED FOR PATIENTS UNDER 18 YEARS OF AGE. BUN/CREA (test code = 17 12-20 BCR) CALCIUM (test code = 8.8 mg/dL 8.3-9.5 09D) BILI TOTAL (test code 0.2 mg/dL 0.2-1.0 = 11A) PROTEIN (test code = 8.7 g/dL 6.4-8.2 H 07D) ALBUMIN (test code = 3.3 g/dL 3.5-4.8 L 08D) GLOBULIN (test code = 5.4 g/dL 1.5-3.8 H GLB) ALB/GLOB (test code = 0.6 1.0-2.6 L AGRR) ALK PHOS (test code = 95 IU/L 42-121 35A) AST (test code = 30A) 17 IU/L <=42 ALT (test code = 31A) 23 IU/L <=78 [id number] 02:36:00 Test Item Value Reference Range Interpretation Comments MAGNESIUM (test code = 48A) 2.3 mg/dL 1.8-2.4 LIPASE [id number] 02:35:00 Test Item Value Reference Range Interpretation Comments LIPASE (test code = 60A) 136 IU/L 73-393 URINALYSIS WITH [id number] 02:30:00 Test Item Value Reference Range Interpretation Comments COLOR (test code = COLU) Yellow YELLOW CLARITY (test code = CLA) Clear CLEAR GLUCOSE UR (test code = UA Negative NEGATIVE GLUCOSE) BILI UR (test code = BILE) Negative NEGATIVE KETONES UR (test code = NAHED) Negative NEGATIVE SP GRAVITY (test code = SPGR) 1.025 1.005-1.030 PH UR (test code = PH) 6.0 4.5-8.0 PROTEIN UR (test code = PU) Trace NEGATIVE UROBIL UR (test code = UROQ) 0.2 EU/dL 0.2-1.0 NITRITE UR (test code = NITRITE) Negative NEGATIVE BLOOD UR (test code = UA BLOOD) Trace-lysed NEGATIVE LEUK ES UR (test code = LEUK) Negative NEGATIVE WBC UR (test code = UWBC) 2 /HPF 0-3 RBC UR (test code = URBC) 2 /HPF 0-2 EPITH UR (test code = UEPC) NONE /LPF NONE BACTERIA UR (test code = UBACT) FEW /HPF NONE A CAST UR (test code = CAST) /LPF NONE CRYSTAL UR (test code = CRYU) / LPF NONE MUCUS UR (test code = MUC) / HPF NONE AMORPH UR (test code = ANGEL) / HPF NONE TRICH UR (test code = UTRICH) /HPF NONE YEAST UR (test code = UY) /HPF NONE SPERM UR (test code = USPERM) /HPF NONE CBC (INCLUDES AUTOMATED DIFFERENTIAL)[id number] 02:26:00 Test Item Value Reference Range Interpretation Comments WBC (test code = WBC) 5.4 10\S\3/uL 4.5-11.0 RBC (test code = RBC) 4.15 10\S\6/uL 4.20-5.60 L HGB (test code = HBG) 12.5 g/dL 14.0-18.0 L HCT (test code = HCT) 37.0 % 35.0-46.0 MCV (test code = MCV) 89.2 fL 80.0-94.0 MCH (test code = MCH) 30.1 pg 27.0-31.0 MCHC (test code = MCHC) 33.8 g/dL 32.0-36.0 RDW (test code = RDW) 13.0 % 11.5-14.5 PLT (test code = PLT) 282 10\S\3/uL 130-400 MPV (test code = MPV) 9.1 fL 9.4-12.4 L NEUTROP # (test code = NE#) 3.4 10\S\3/uL 2.0-8.0 LYMPH # (test code = LY#) 1.2 10\S\3/uL 1.2-4.0 MONOCYTE # (test code = MO#) 0.7 10\S\3/uL 0.0-1.1 EOSINOPH # (test code = EO#) 0.1 10\S\3/uL 0.0-0.7 BASOPHIL # (test code = BA#) 0.0 10\S\3/uL 0.0-0.3 IG # (test code = IG#) 0.02 10\S\3/uL 0.00-0.06 NRBC # (test code = NRBC#) 0.00 10\S\3/uL 0.00-0.01 NEUTROPH % (test code = NE%) 62.6 % 35.0-73.0 LYMPH % (test code = LY%) 22.0 % 20.0-55.0 MONO % (test code = MO%) 12.0 % 2.5-10.0 H EOSINOPH % (test code = EO%) 2.4 % 0.0-5.0 BASOPHIL % (test code = BA%) 0.6 % 0.0-2.0 IG % (test code = IG%) 0.4 % 0.0-0.8 NRBC% (test code = NRBC%) 0.0 % 0.0-0.2 MANDIFF (test code = MDIFF) NO NO RBC MORPH (test code = RBCMOR) NORMAL SARS coronavirus 2 RNA [Presence] in Respiratory specimen by ARMIDA with probe [id number] 13:44:24 Test Item Value Reference Range Interpretation Comments SARS coronavirus 2 RNA Not detected Not-Detected [Presence] in Respiratory specimen by ARMIDA with probe detection (test code = 74235-3) XR Chest 1 [id number] 02:16:05Hm Interface, Radiology Results - 05/14/2020 2:19 AM CDT EXAMINATION: XR CHEST 1 PORTABLECLINICAL HISTORY: SOBCOMPARISON: 01/15/2019IMPRESSION:No consolidations, effusions, or pneumothorax.Cardiomediastinal silhouette is within normal limits.No acute osseous abnormalities.[id number] MethodistXR SPINE CERVICAL *NT* 2018-06-21 15:47:21Cervical spine, 5 viewsLocation code: [id number] history: Neck pain after strainComments: AP, oblique, open mouth odontoid and lateral views of the cervicalspine demonstrate no displaced fracture or malalignment. Straightening of usualcervical lordosis noted. The soft tissues are unremarkable. Impression: Straightening of usual cervical lordosis may represent musclespasm.XR SPINE SACRUM COMPLETE *NT*2018-01-04 14:56:08Sacrum, 2 viewsLocation Code: D4 Clinical history: PainComments: AP and lateral views of the sacrum demonstrate no acute fracture ormalalignment. The soft tissues are unremarkable. Impression: No acuteabnormality.XR SPINE LUMBAR COMPLETE *NT* 2018-01-04 14:55:51Lumbar spine series, 5 viewsLocation Code: [id number] HISTORY: M54.5: LOW BACK PAINCOMPARISON: None.COMMENTS: AP, oblique, and lateral views of the lumbar spine demonstrate noacute fracture or malalignment. The soft tissues are unremarkable.IMPRESSION: No acute radiographic abnormality.XR KNEE RIGHT 3 VIEWS *NT*2018-01-04 14:55:19Right knee, 3 viewsLocation Code: [id number] HISTORY:M25.561: PAIN IN RIGHT KNEECOMMENTS: AP, lateral, and oblique views of the right knee demonstrate no acutefracture or malalignment. The soft tissuesare unremarkable.IMPRESSION: No acute radiographic abnormality.XR FOOT RIGHT COMPLETE 3V *NT*2018-01-04 14:54:55Right foot, 3 viewsLocation Code: [id number] HISTORY: M79.671: PAIN IN RIGHT FOOTCOMMENTS: AP, lateral, and oblique views of the right foot demonstrate noacute fracture or malalignment. Tiny plantar and retrocalcaneal enthesophytesare seen. Mild arthrosis at the first MP joint. The soft tissues areunremarkable.IMPRESSION: No acute radiographic abnormality. Tiny plantar and retrocalcanealenthesophytes along with mild arthrosis at the first MP joint.XR ANKLE RIGHT COMPLET 3V *NT* 2018-01-04 14:53:52Right ankle, 3 viewsLocation Code: [id number] HISTORY: Pain.COMMENTS: AP, lateral, and oblique views of the right ankle demonstrate noacute fracture or malalignment. Mild medial tibiotalar arthrosis is noted. Thesoft tissues are unremarkable.IMPRESSION: No acute radiographic abnormality. Mild arthrosis.
[2021-04-29] MEDS ORDERED: ONDANSETRON 4 MG/2 ML VIAL ONE (01:16)
[2021-04-29] MEDS ORDERED: NA CHLORIDE 0.9% 1,000 ML ONE (01:16)
[2021-04-29] MEDS ORDERED: MEPERIDINE HCL 50 MG/ML ONE ×2 (01:16→03:17)
[2021-04-29 01:21] LABS: Absolute Lymphocytes (CBC) 0.7 K/uL (0.7-4.9); Basophils % 0.4 % (0-1.3); Lymphocytes % 6.4 % (15.3-44.8); MPV 7.1 fL (7.6-11.3); RBC Red Blood Cell Count 3.36 M/uL (4.33-5.43)
[2021-04-29 01:30] LABS: ALT/SGPT 44 U/L (12-78); AST/SGOT 37 U/L (15-37); Albumin 2.5 g/dL (3.4-5.0); Alkaline Phosphatase 150 U/L (45-117); BUN Blood Urea Nitrogen 14 mg/dL (7-18); Bicarbonate 27 mmol/L (21-32); Bilirubin Direct 0.1 mg/dL (0-0.2); Bilirubin Total 0.4 mg/dL (0.2-1.0); Glucose Level 120 mg/dL (74-106); Lipase 69 U/L (73-393); Protein, Total 8.2 g/dL (6.4-8.2); Sodium Level 136 mmol/L (136-145)
[2021-04-29 02:47] LABS: Blood Morphology Comment NOT SEEN (NOT SEEN); Platelet Estimate INCR
--- NOTE | 2021-04-29 02:56 | ER ---
Nurse's Notes [facility] Name: Bakari Mcintosh Age: 45 yrs Sex: Male : 1975 Arrival Date: 04/29/2021 Time: 00:23 Bed 13 Private MD: Diagnosis: Ileus, unspecified;Possible small bowel obstruction Presentation: 04/29 00:47 Chief complaint: Patient states: I had surgery last week to repair a bowel perforation jm8 and had a colostomy bag placed. I've been having abdominal pain since the surgery and have vomited twice today. Coronavirus screen: Client denies travel out of the [place] in the last 14 days. At this time, the client does not indicate any symptoms associated with coronavirus-19. Ebola Screen: Patient negative for fever greater than or equal to 101.5 degrees Fahrenheit, and additional compatible Ebola Virus Disease symptoms Patient denies exposure to infectious person. Patient denies travel to an Ebola-affected area in the 21 days before illness onset. Initial Sepsis Screen: Does the patient meet any 2 criteria? RR > 20 per min. Initial Sepsis Screen: Does the patient have a suspected source of infection? No. Patient's initial sepsis screen is negative. Risk Assessment: Do you want to hurt yourself or someone else? Patient reports no desire to harm self or others. Onset of symptoms was April 28, 2021. 00:47 Method Of Arrival: Ambulatory [facility] 00:47 Acuity: FREDERIC 3 jm8 Triage Assessment: 00:54 General: Appears in no apparent distress. uncomfortable, Behavior is anxious, crying, jm8 restless. Pain: Complains of pain in abdomen Pain currently is 10 out of 10 on a pain scale. Noted to be agitated, crying, grimacing, guarding, Also complains of nausea. EENT: No deficits noted. No signs and/or symptoms were reported regarding the EENT system. Neuro: No deficits noted. Level of Consciousness is awake, alert, obeys commands, Oriented to person, place, time. Cardiovascular: No deficits noted. Respiratory: No deficits noted. GI: Abdomen is distended, Colostomy site is clean and dry. Ostomy appliance is intact. skyler and abdominal incision Abdomen is tender to palpation X 4 quads. Reports lower abdominal pain, upper abdominal pain, nausea, vomiting. : No deficits noted. No signs and/or symptoms were reported regarding the genitourinary system. Derm: No deficits noted. No signs and/or symptoms reported regarding the dermatologic system. Musculoskeletal: No deficits noted. No signs and/or symptoms reported regarding the musculoskeletal system. Historical: - Allergies: 00:53 Geodon; jm8 00:53 Haldol; jm8 00:53 Risperdal; 8 - Home Meds: 00:53 Unable to obtain [Active]; jm8 - PMHx: 00:53 brown reculse bite; HERPES; genital and cold sores; HIV; Hypertension; schizoaffective; jm8 - PSHx: 00:53 Unable to obtain; jm8 - Immunization history:: Adult Immunizations not up to date, Client reports having NOT received the Covid vaccine. - Social history:: Smoking status: Patient reports the use of cigarette tobacco products. - Family history:: not pertinent. - Hospitalizations: : Patient was recently seen at. Screenin:53 Abuse screen: Denies threats or abuse. Denies injuries from another. Nutritional [facility] screening: No deficits noted. Tuberculosis screening: No symptoms or risk factors identified. Fall Risk None identified. Assessment: 00:57 Reassessment: see triage assessment. [facility] 03:23 Reassessment: attempted to place NG tube at this time. In the process of placing NG 8 tube patient rips tube out of his nose and states that he isn't doing the tube and that he is leaving. Patient explained the risks of leaving and that the process to treat will be the same at any other hospital. Patient decides to leave. Leaves before signing AMA paperwork. Vital Signs: 00:47 BP 182 / 88; Pulse 89; Resp 20; Temp 98.3; Pulse Ox 100% on R/A; Weight 75.3 kg; Height 8 5 ft. 11 in. (180.34 cm); Pain 10/10; 02:34 BP 174 / 84; Pulse 68; Resp 16; Pulse Ox 100% on R/A; jm8 00:47 Body Mass Index 23.15 (75.30 kg, 180.34 cm) [facility] ED Course: 00:23 Patient arrived in ED. cf2 00:39 Anibal Moreno MD is Attending Physician. rn 00:51 Triage completed. jm8 00:53 Patient has correct armband on for positive identification. Bed in low position. Call jm8 light in reach. Side rails up X2. 00:54 Arm band placed on right wrist. jm8 00:57 Inserted saline lock: 20 gauge in right antecubital area, using aseptic technique. jm8 02:00 CT Abd/Pelvis - IV Contrast Only In Process Unspecified. EDMS 03:41 No provider procedures requiring assistance completed. IV discontinued. jm8 Administered Medications: 01:03 Drug: Demerol (meperidine) 50 mg Route: IVP; Site: right antecubital; jb4 01:42 Follow up: Response: No adverse reaction jm8 01:03 Drug: Zofran (Ondansetron) 4 mg Route: IVP; Site: right antecubital; jb4 01:42 Follow up: Response: No adverse reaction jm8 01:03 Drug: NS 0.9% 1000 ml Route: IV; Rate: 1000 ml; Site: right antecubital; jb4 03:03 Drug: Demerol (meperidine) 50 mg Route: IVP; Site: right antecubital; jm8 03:42 Follow up: Response: No adverse reaction jm8 Outcome: 02:56 ER care complete, transfer ordered by . rn 03:40 AMA Left before signing form. jm8 03:40 Condition: good 03:40 Instructed on the need for transfer. 03:41 Patient left the ED. jm8 Signatures: Dispatcher [employer] EDMS Anibal Moreno MD MD rn Bryson, James, RN RN jb4 Philly Chung 2 Gal Hennessy, JANETH RN jm8
--- NOTE | 2021-04-29 02:56 | EDPHYS ---
Physician Documentation [facility] Name: Bakari Mcintosh Age: 45 yrs Sex: Male : 1975 Arrival Date: 04/29/2021 Time: 00:23 Bed 13 Private MD: ED Physician Anibal Moreno HPI: 04/29 02:47 This 45 yrs old Male presents to ER via Ambulatory with complaints of rn Nausea/Vomiting, Abdominal Pain. 02:47 The patient presents to the emergency department with nausea, vomiting, abdominal pain. rn Onset: The symptoms/episode began/occurred 1 week(s) ago. Possible causes: unknown. The symptoms are aggravated by movement, pressure, The symptoms are alleviated by nothing. Severity of symptoms: At their worst the symptoms were moderate in the emergency department the symptoms are unchanged. The patient has not experienced similar symptoms in the past. The patient has been recently seen by a physician:. Reports just admitted at [facility] in [place] for bowel perforation from stuck vibrator, ended up with colostomy, reports decreased outpt and moderate to severe abd pain. + nausea/vomiting. Pain since surgery but worse today.. Historical: - Allergies: 00:53 Geodon; jm8 00:53 Haldol; jm8 00:53 Risperdal; jm8 - Home Meds: 00:53 Unable to obtain [Active]; jm8 - PMHx: 00:53 brown reculse bite; HERPES; genital and cold sores; HIV; Hypertension; schizoaffective; jm8 - PSHx: 00:53 Unable to obtain; jm8 - Immunization history:: Adult Immunizations not up to date, Client reports having NOT received the Covid vaccine. - Social history:: Smoking status: Patient reports the use of cigarette tobacco products. - Family history:: not pertinent. - Hospitalizations: : Patient was recently seen at. ROS: 02:47 Constitutional: Negative for fever, chills, and weight loss, Eyes: Negative for injury, rn pain, redness, and discharge, Cardiovascular: Negative for chest pain, palpitations, and edema, Respiratory: Negative for shortness of breath, cough, wheezing, and pleuritic chest pain, Abdomen/GI: + abd pain and nausea/vomiting Back: Negative for injury and pain, : Negative for injury, bleeding, discharge, and swelling, MS/Extremity: Negative for injury and deformity, Skin: Negative for injury, rash, and discoloration, Neuro: Negative for headache, numbness, tingling, and seizure. Exam: 02:47 Constitutional: This is a well developed, well nourished patient who is awake, alert, rn moaning and thrashing Head/Face: Normocephalic, atraumatic. ENT: dry MM Cardiovascular: Regular rate and rhythm. No pulse deficits. Respiratory: No increased work of breathing, no retractions or nasal flaring. Abdomen/GI: soft, + mild distension and periumbilical tenderness, no drainage from surgical wounds/skyler in place. + scant output into ostomy bag. Skin: Warm, dry MS/ Extremity: Pulses equal, no cyanosis. Neuro: Awake and alert, GCS 15 Vital Signs: 00:47 BP 182 / 88; Pulse 89; Resp 20; Temp 98.3; Pulse Ox 100% on R/A; Weight 75.3 kg; Height jm8 5 ft. 11 in. (180.34 cm); Pain 10/10; 02:34 BP 174 / 84; Pulse 68; Resp 16; Pulse Ox 100% on R/A; jm8 00:47 Body Mass Index 23.15 (75.30 kg, 180.34 cm) jm8 MDM: 00:39 Patient medically screened. rn 02:47 Differential diagnosis: Nonspecific abd pain, Bowel obstruction, ileus, nonspecific abd rn pain. Data reviewed: vital signs, nurses notes, lab test result(s), radiologic studies, CT scan, and as a result, I will admit patient. Counseling: I had a detailed discussion with the patient and/or guardian regarding: the historical points, exam findings, and any diagnostic results supporting the discharge/admit diagnosis, lab results, radiology results, the need to transfer to another facility. Response to treatment: the patient's symptoms have mildly improved after treatment, and as a result, I will admit patient. ED course: Pt 1 week post-op from bowel perforation and resulting colostomy bag, pt believes at [facility], now with intractable abd pain and vomiting, ct shows ileus vs SBO. Will transfer back to place of surgery for further care. . 03:22 ED course: Pt was getting NG tube placement and transfer was initiated, pt pulled out rn NG tube, demanded that we take out his IV to go home. Patient understands that he has ileus vs SBO and recommend transfer, pt understands and demands that we remove IV. Pt walked out of ER despite us trying to convince him to stay. . 04/29 00:49 Order name: Basic Metabolic Panel; Complete Time: 02:21 rn 04/29 00:49 Order name: CBC with Diff rn 04/29 00:49 Order name: Hepatic Function; Complete Time: 02:21 rn 04/29 00:49 Order name: Lipase; Complete Time: 02:21 rn 04/29 01:48 Order name: Manual Differential EDMS 04/29 00:49 Order name: IV Saline Lock; Complete Time: 00:57 rn 04/29 00:49 Order name: Labs collected and sent; Complete Time: 00:57 rn 04/29 00:49 Order name: CT Abd/Pelvis - IV Contrast Only rn 04/29 02:47 Order name: NG Tube rn Administered Medications: 01:03 Drug: Demerol (meperidine) 50 mg Route: IVP; Site: right antecubital; jb4 01:42 Follow up: Response: No adverse reaction 8 01:03 Drug: Zofran (Ondansetron) 4 mg Route: IVP; Site: right antecubital; jb4 01:42 Follow up: Response: No adverse reaction 8 01:03 Drug: NS 0.9% 1000 ml Route: IV; Rate: 1000 ml; Site: right antecubital; jb4 03:03 Drug: Demerol (meperidine) 50 mg Route: IVP; Site: right antecubital; jm8 03:42 Follow up: Response: No adverse reaction jm8 Disposition: 04/29/21 03:24 Patient has left against medical advice. Impression: Ileus, unspecified, Possible small bowel obstruction. - Patients states they are going to Home. - Condition is Stable. - Discharge Instructions: Small Bowel Obstruction, Ileus. Follow up: Private Physician; When: As needed; Reason: Recheck today's complaints, Re-evaluation by your physician. - Problem is new. - Symptoms have improved. Signatures: Dispatcher [employer] EDMS Anibal Moreno MD MD rn Bryson, James, RN RN jb4 Gal Hennessy RN RN jm8 Corrections: (The following items were deleted from the chart) 03:24 02:56 04/29/2021 02:56 Transfer ordered to [facility]. Diagnosis is Ileus, jono unspecified; Possible Small Bowel Obstruction; Intractable abdominal pain. Reason for transfer: Higher level of care. Accepting physician is . Condition is Stable. Problem is new. Symptoms have improved. rn 03:41 03:24 04/29/2021 03:24 Patients has left against medical advice. Impression: Ilebarbara platt unspecified; Possible small bowel obstruction. Patient states they are going to Home. Condition is Stable. Follow up: Private Physician; When: As needed; Reason: Recheck today's complaints, Re-evaluation by your physician. Problem is new. Symptoms have improved. rn
[2021-04-29 04:05] VITALS: TEMP 98.3; O2SAT 100
[2021-04-29 04:07] VITALS: BP 174/84
--- NOTE | 2021-04-29 14:34 | RAD REPORT ---
EXAM DESCRIPTION: CT - Abdomen Pelvis W Contrast - 04/29/2021 6:41 am CLINICAL HISTORY: The patient is 45 years old and is Male; recent surgery with bowel perforation and colostomy, RLQ pa TECHNIQUE: Axial computed tomography images of the abdomen and pelvis with intravenous contrast. S agittal and coronal reformatted images were created and reviewed. This CT exam was performed using one or more of the following dose reduction techniques: automated exposure control, adjustment of t he mA and/or kV according to patient size, and/or use of iterative reconstruction technique. COMPARISON: No relevant prior studies available. FINDINGS: Lung bases: Unremarkable. No mass. No consolidation. ABDOMEN: Liver: Unremarkable. No mass. Gallbladder and bile ducts: Unremarkable. No calcified stones. No ductal dilation. Pancreas: Unremarkable. No mass. No ductal dilation. Spleen: Unremarkable. No splenomegaly. Adrenals: Unremarkable. No mass. Kidneys and ureters: Unremarkable. No solid mass. No hydronephrosis. Stomach and bowel: There are numerous dilated loops of small bowel with air-fluid levels measurin g up to 4.5 cm in diameter. Left lower quadrant colostomy. Evaluation severely limited by artifact from motion, scanning the patient's arms, as well as from air within the small bowel. No mucosal thickening. PELVIS: Appendix: No findings to suggest acute appendicitis. Bladder: Unremarkable. No mass. Reproductive: Unremarkable as visualized. ABDOMEN and PELVIS: Intraperitoneal space: There is the suggestion of scattered areas of fluid within the abdomen whi ch is poorly visualized. No free air. Bones/joints: No acute fracture. No dislocation. Soft tissues: Midline surgical wound with skin skyler. Vasculature: Unremarkable. No abdominal aortic aneurysm. Lymph nodes: There are a few prominent periaortic lymph nodes. IMPRESSION: 1. There is the suggestion of scattered areas of fluid within the abdomen which is poo rly visualized. 2. There are numerous dilated loops of small bowel with air-fluid levels measuring up to 4.5 cm in diameter. Findings are consistent with ileus or small bowel obstruction. 3. Left lower quadrant colostomy. 4. Evaluation severely limited by artifact from motion, scanning the patient's arms, as well as fro m air within the small bowel. Electronically signed by: Jared Díaz MD 04/29/2021 2:18 AM CDT Due to temporary technical issues with the PACS/Fluency reporting system, reports are being signed by the in house radiologists without review as a courtesy to insure prompt reporting. The interpreting radiologist is fully responsible for the content of the report.
== END 2021-04-29 03:41 | disposition left against medical advice (07) ==
LOC: ER 00:22
DX: K56.7 Ileus, unspecified (principal); Z21 Asymptomatic human immunodeficiency virus [HIV] infection status; F17.210 Nicotine dependence, cigarettes, uncomplicated; Z88.5 Allergy status to narcotic agent; Z88.8 Allergy status to other drugs, medicaments and biological substances
CPT/HCPCS: 85025; 80048; 36415; 80076; 83690; 74177; 96375; 96374; 99283; Q9967; J2175 ×2; J7030; J2405

== ENCOUNTER 2021-04-29 20:47 | Emergency (ER) | payer OTHER ==
--- OUTSIDE RECORDS SUMMARY | 2021-04-29 20:51 | XMS REPORT | Continuity of Care Document ---
:1975 Author Organization [facility] t Address [address] [place] [address] Care Team Providers Name Role Phone Pcp MD, Beryl Primary Care Physician Unavailable DR RAIN HIDALGO Attending Clinician Unavailable DR WARREN Attending Clinician Unavailable DR Margret BONILLA Attending Clinician Unavailable DR MANISH Attending Clinician Unavailable Марина Larson MDshabnam Attending Clinician MD KELSEY LARSON Attending Clinician Unavailable Jacquelin HANLEY JR Attending Clinician Unavailable DR Radha HIDALGO Admitting Clinician Unavailable DR WARREN Admitting Clinician Unavailable DR Margret BONILLA Admitting Clinician Unavailable DR MANISH Admitting Clinician Unavailable MD KELSEY LARSON Admitting Clinician Unavailable Jacquelin HANLEY JR Admitting Clinician Unavailable Payers Payer Name Policy Type Policy Effective Date Expiration Source Number Date MEDICAIDMEDICAIDxxxxx1 [id number] 2011 Phong moon -PresentMed 00:00:00 Sc thodist icaid CIGNA [id number] [facility] [id number] 2020-Pr esentHMO Problems Condition Condition Condition Status [...] 00:00: st 00 Rash Rash Disease Active [place] 3-04 Methodi 00:00: st 00 Lump or [...] 00 Acne Acne Disease Active 2009-11 Peña 0-27 Health 00:00: 00 Health Health Disease Active 2009-11 Overview: Peña maintenanc maintenanc 0-27 [facility] e e 00:00: g of this examinatio examinatio 00 note n n might be different from the original. PSA\Recta l Exam : 08/23 refusedFO BT (50 + Annual):n aCholeste rol (20 + every 5 yrs):orde ptsTjnZ0A : naMicroal bumin: naLast Td/Dtap: orderedFl u Vaccine (Annual): 07/24Pneum ovax: naLast PPD (yearly 1-35): 06/23Diabe tic Foot Exam (Annual): naDiabeti c Eye Exam (Annual): na EKG (Over 40 yrs Old) None Unspecifie Diagnosis Active 2016-11-23 Memoria d fracture 05:14:21 l of shaft [place] of Unspecifie humerus, d fracture right arm, of shaft initial of encounter humerus, for closed right arm, fracture initial encounter for closed fracture Active Diagnosis 11/23/2016 Rosalino Gramajo Lock Unspecifie Diagnosis Active 2016-11-23 Memoria d fracture 05:14:21 l of shaft [place] of Unspecifie humerus, d fracture left arm, of shaft initial of encounter humerus, for closed left arm, fracture initial encounter for closed fracture Active Diagnosis 11/23/2016 Rosalino Rox Martinez Essential Problem Active 2016-11-23 Me moria (primary) 05:14:21 l hypertensi Yobani n on Essential (primary) hypertensi on Active Problem 7 Rosalino Martinez Psychosis, Diagnosis Active 2016-11-23 Memoria unspecifie 05:14:21 l d [place] psychosis Psychosis, type unspecifie d psychosis type Active Diagnosis 11/23/2016 Rosalino Rox Martinez Schizo Schizo Disease Active [place] affective affective Heal th schizophre schizophre junito junito Bipolar Bipolar Disease Active [place] disorder disorder Health Allergies, Adverse Reactions, Alerts [...] Active [place] [facility] 04-05 [place] 00:00: [address] Family History Family Member Diagnosis Comments Start Date Stop Date Source unknown Unknown Fam Hx [facility] Unknown Family Family History 2016-11-23 2016-11-23 Memori al [place]ree Member 05:14:21 05:14:21 Social History Social Habit Start Date Stop Date Quantity Comments Source Sex Assigned At [facility] History of tobacco Cigarette Smoker Christine Appwiz use Tobacco use and 2020-05-14 2020-05-14 Never used [facility] exposure 00:00:00 00:00:00 [facility] Alcohol intake 2018-06-03 2018-06-03 Current [facility] es - 00:00:00 00:00:00 non-drinker of Medical Ce nter alcohol (finding) TobaccoUse: 2016-10-26 2016-10-26 [facility] 00:00:00 00:00:00 Cigarettes smoked 2010-09-09 2010-09-09 [facility] current (pack per 00:00:00 00:00:00 day) - Reported Smoking Status Start Date Stop Date Source Current every day smoker 2018-06-03 00:00:00 [facility] Medications Ordered Filled Start Stop Current Ordering [...] C [facility] (PRILOSEC) 06-03 by mouth [facility] - [facility] MG 22:01: daily. Medical capsule [address] [place] [address] Atenolol 2015-11 Yes Rosalino 1 tablet Me moria 2-13 Lock l 00:00: [place] 00 trifluopera 2009-11 Yes 5mg Q.5D Take [...] Commen ts Source Name Name PPD 2011-12-28 [facility] 00:00:00 Tdap Tetanus, 2010-09-09 Completed [facility] th diphtheria, 00:00:00 acellular pertussis Vaccine Influenza Vaccine 2010-08-04 Completed [facility] 00:00:00 Vital Signs Vital Name Observation Time Observation Value Comments Source Systolic blood 2020-05-14 03:45:00 173 mm[Hg] [place] [facility] pressure Diastolic blood 2020-05-14 03:45:00 93 mm[Hg] [place] [facility] pressure Heart rate 2020-05-14 03:45:00 65 /min Cameron Joshi Body temperature 2020-05-14 03:45:00 36.44 Sariah [place] [facility] Respiratory rate 2020-05-14 03:45:00 20 /min [place] [facility] Oxygen saturation in 2020-05-14 03:45:00 99 /min Cameron Joshi Arterial blood by Pulse oximetry Weight 2016-10-26 20:00:00 [facility] [place] Height 2016-10-26 20:00:00 [facility] [place] Heart Rate 2016-10-26 20:00:00 [facility] [place] Diastolic (mm Hg) 2016-10-26 20:00:00 [facility] [place] Systolic (mm Hg) 2016-10-26 20:00:00 Tico rial [place] Procedures Procedure Date / Time Performing Clinician Source Performed XR CHEST 1 VW PORTABLE 2020-05-14 02:12:40 Mary Ashby COVID-19 QUALITATIVE 2020-05-14 01:50:00 Mary Ashby PCR GROUP A STREP, RAPID 2020-05-14 01:50:00 Wilman Larson ANTIGEN [facility] INFLUENZA ANTIGEN TEST, 2020-05-14 01:50:00 Wilman Larson REFLEX NEGATIVE TO RPP [facility] STREP SCREEN CULTURE 2020-05-14 01:50:00 Wilman Larson [facility] RESPIRATORY PATHOGEN 2020-05-14 01:50:00 Wilman Larson PANEL WITH COVID-19 [facility] Plan of Care Planned Activity Planned Date Details Comments Source Future Scheduled 2021-08-14 IMM Influenza Seasonal [facility] Test 00:00:00 Aug to January (>/= 19 yrs) [code = IMM Influenza Seasonal Aug to January (>/= 19 yrs)] Future Scheduled 2021-06-14 INFLUENZA VACCINE [place] [facility] Test 00:00:00 [code = INFLUENZA VACCINE] Future [...] Test 00:00:00 (procedure) [code = Medical Center [id number]] Future Scheduled 1985 COVID-19 Vaccine (1) [facility] Test 00:00:00 [code = COVID-19 Vaccine (1)] Future Scheduled 1985 COVID-19 VACCINE (1) [facility] Test 00:00:00 [code = COVID-19 VACCINE (1)] Future Scheduled [address] [facility] - Test 00:00:00 0-64 YRS (1 of 1 - Medical C enter PPSV23) [code = PNEUMOCOCCAL VACCINE 0-64 YRS (1 of 1 - PPSV23)] Encounters Start End Encounter Admission Attending Care Care Encounter Source Date/Time Date/Time Type Type Clinicians Facility Department ID 2020-11-17 2020-11-17 Emergency E GWEN [facility] [id number] [place] 15:49:00 17:03:00 [facility] 2020-10-02 2020-10-03 Emergency E KRUNAL KELLEY [facility] [id number] [place] 20:43:00 00:00:00 [facility] 2020-10-01 2020-10-01 Emergency E NICOLE BONILLA [facility] [id number] [place] 03:36:00 07:10:00 Medica [facility] 2020-09-18 2020-09-18 Emergency E KRUNAL KELLEY [facility] [id number] [place] 21:02:00 22:31:00 Medica l [place] 2020-09-10 2020-09-10 Emergency E ELISA HAMMOND [facility] [id number] [place] 01:56:00 04:21:00 Medica l [place] 2020-05-14 2020-05-14 Emergency E KM KM [id number] [facility] 21:07:00 21:07:00 rebeca jose 2020-05-14 2020-05-14 Emergency LARSON, [facility] [id number] [place] 00:00:00 00:00:00 DAVID [place] 2018-11-26 2018-11-26 Emergency [facility] [id number] [place] 08:23:00 08:23:00 Health 2018-06-21 2018-06-21 Outpatient Rox HANLEY [facility] [id number] [place] 15:13:00 23:59:00 DOUG ECHEVARRIA [facility] 2018-01-04 2018-01-04 Outpatient Rox HANLEY [facility] [id number] [place] 13:20:00 23:59:00 DOUG ECHEVARRIA [facility] 2016-10-26 2016-10-26 Outpatient Rosalino Jerry Chas [id number] [facility] 14:00:00 14:00:00 Michelle Jessica MD alWo richelle LUCIANO Results Test Description Test Time Test Comments Results Result Comments Source D-DIMER 2020-10-02 21:51:00 Test Item Value Reference Range Interpretation Comme nts D-DIMER (test code = DDI) <200 ng/mL D-DU 0-234 D-DIMER COMMENT (test code = DDCOM) *Level to rule out DVT or PE: < 235 ng/mL D-DU* PRO TIME AND [id number] 21:51:00 Test Item Value Reference Range Interpretation [...] or LMW Heparin. Order Code is ANTI-XA [id number] 21:38:00 Test Item Value Reference Range Interpretation Comments CPK (test code = 32A) 188 IU/L 39-308 TROPONIN [id number] 21:38:00 Test Item Value Reference Range Interpretation Comments TROPONIN I (test code = A84) <0.015 ng/mL 0.000-0.045 COMPREHENSIVE METABOLIC [id number] 21:38:00 Test Item Value Reference Range Interpretation [...] (test code = <10 mg/dL <=10 56A) [id number] 21:29:00 Test Item Value Reference Range Interpretation [...] (test code = RBCMOR) NORMAL URINALYSIS WITH [id number] 06:41:00 Test Item Value Reference Range Interpretation [...] code = USPERM) /HPF NONE DRUGS OF [id number] 06:39:00 Test Item Value Reference Range Interpretation [...] ng/mL Barbiturates 200 ng/mL Opiates 2000 ng/mL [id number] 04:29:00 Test Item Value Reference Range Interpretation Comments ACETAMINPH (test code = 94M) <2.0 ug/mL 10.0-30.0 L COMPREHENSIVE METABOLIC [id number] 04:29:00 Test Item Value Reference Range Interpretation [...] (test code = <10 mg/dL <=10 56A) [id number] 04:21:00 Test Item Value Reference Range Interpretation [...] <10 mg/dL <=10 56A) PRO TIME AND [id number] 02:56:00 Test Item Value Reference Range Interpretation [...] Heparin. Order Code is ANTI-XA DRUGS OF [id number] 02:50:00 Test Item Value Reference Range Interpretation [...] 200 ng/mL Opiates 2000 ng/mL BRAIN NATRIURETIC [id number] 02:44:00 Test Item Value Reference Range Interpretation Comments proBNP (test code = PBNP) 533 pg/mL 0-125 H TROPONIN [id number] 02:43:00 Test Item Value Reference Range Interpretation Comments TROPONIN I (test code = A84) <0.015 ng/mL 0.000-0.045 COMPREHENSIVE METABOLIC [id number] 02:40:00 Test Item Value Reference Range Interpretation [...] (test code = 31A) 23 IU/L <=78 [id number] 02:36:00 Test Item Value Reference Range Interpretation Comments MAGNESIUM (test code = 48A) 2.3 mg/dL 1.8-2.4 LIPASE [id number] 02:35:00 Test Item Value Reference Range Interpretation Comments LIPASE (test code = 60A) 136 IU/L 73-393 URINALYSIS WITH [id number] 02:30:00 Test Item Value Reference Range Interpretation [...] in Respiratory specimen by ARMIDA with probe [id number] 13:44:24 Test Item Value Reference Range Interpretation Comments SARS coronavirus 2 RNA Not detected Not-Detected [Presence] in Respiratory specimen by ARMIDA with probe detection (test code = 23373-8) XR Chest 1 [id number] 02:16:05Hm Interface, Radiology Results - 05/14/2020 2:19 AM CDT EXAMINATION: XR CHEST 1 PORTABLECLINICAL HISTORY: SOBCOMPARISON: 01/15/2019IMPRESSION:No consolidations, effusions, or pneumothorax.Cardiomediastinal silhouette is within normal limits.No acute osseous abnormalities.[id number] MethodistXR SPINE CERVICAL *NT* 2018-06-21 15:47:21Cervical spine, 5 viewsLocation code: J4Volzixaf history: Neck pain after strainComments: AP, oblique, [...] 2018-01-04 14:55:51Lumbar spine series, 5 viewsLocation Code: [id number] HISTORY: M54.5: LOW BACK PAINCOMPARISON: None.COMMENTS: AP, oblique, and lateral views of the lumbar spine demonstrate noacute fracture or malalignment. The soft tissues are unremarkable.IMPRESSION: No acute radiographic abnormality.XR KNEE RIGHT 3 VIEWS *NT*2018-01-04 14:55:19Right knee, 3 viewsLocation Code: [id number] HISTORY:M25.561: PAIN IN RIGHT KNEECOMMENTS: AP, lateral, and oblique views of the right knee demonstrate no acutefracture or malalignment. The soft tissuesare unremarkable.IMPRESSION: No acute radiographic abnormality.XR FOOT RIGHT COMPLETE 3V *NT*2018-01-04 14:54:55Right foot, 3 viewsLocation Code: V3LYDWYDIA HISTORY: M79.671: PAIN IN RIGHT FOOTCOMMENTS: AP, [...] *NT* 2018-01-04 14:53:52Right ankle, 3 viewsLocation Code: [id number] HISTORY: Pain.COMMENTS: AP, lateral, and oblique views of the right ankle demonstrate noacute fracture or malalignment. Mild medial tibiotalar arthrosis is noted. Thesoft tissues are unremarkable.IMPRESSION: No acute radiographic abnormality. Mild arthrosis.
[2021-04-29 21:14] LABS: Absolute Lymphocytes (CBC) 0.9 K/uL (0.7-4.9); Hematocrit 29.4 % (39.6-49.0); Lymphocytes % 7.8 % (15.3-44.8); MPV 6.9 fL (7.6-11.3); RBC Red Blood Cell Count 3.46 M/uL (4.33-5.43)
[2021-04-29 21:22] LABS: ALT/SGPT 38 U/L (12-78); AST/SGOT 32 U/L (15-37); Albumin 2.4 g/dL (3.4-5.0); Alkaline Phosphatase 130 U/L (45-117); BUN Blood Urea Nitrogen 9 mg/dL (7-18); Bicarbonate 28 mmol/L (21-32); Bilirubin Direct 0.1 mg/dL (0-0.2); Bilirubin Total 0.3 mg/dL (0.2-1.0); Glucose Level 115 mg/dL (74-106); Lipase 65 U/L (73-393); Potassium 3.2 mmol/L (3.5-5.1); Protein, Total 7.9 g/dL (6.4-8.2); Sodium Level 135 mmol/L (136-145)
[2021-04-29] MEDS ORDERED: HYDROMORPHONE HCL 1 MG/ML INJ ONE ×2 (21:22→23:58)
[2021-04-29] MEDS ORDERED: ONDANSETRON 4 MG/2 ML VIAL ONE (21:22)
[2021-04-29] MEDS ORDERED: NA CHLORIDE 0.9% 1,000 ML ONE ×2 (21:23→23:58)
[2021-04-29] MEDS ORDERED: FAMOTIDINE 20 MG/2 ML VIAL IV ONE (21:23)
--- NOTE | 2021-04-29 21:50 | EDPHYS ---
Physician Documentation [facility] Name: Bakari Mcintosh Age: 45 yrs Sex: Male : 1975 Arrival Date: 04/29/2021 Time: 20:48 Bed 16 Private MD: ED Physician Anibal Moreno HPI: 04/29 21:00 This 45 yrs old Male presents to ER via EMS with complaints of Abdominal Pain.cp 21:00 The patient presents with abdominal pain that is diffuse, abdominal distention that is cp diffuse. 21:00 Onset: The symptoms/episode began/occurred yesterday, and became worse today. The cp symptoms do not radiate. Associated signs and symptoms: Pertinent positives: nausea and vomiting, Pertinent negatives: fever, vomiting blood. The symptoms are described as constant. The patient has been recently seen at the [facility] Emergency Department, today, for similar complaints CT scan was performed, diagnosed with small bowel obstruction but left AMA. 21:00 Patient returns to ED with increased abdominal pain and distension since yesterday. cp History of bowel resection performed at [facility] by DR Graham about 1 week ago. Historical: - Allergies: 20:50 Geodon; em 20:50 Haldol; em 20:50 Risperdal; em - PMHx: 20:50 brown reculse bite; HERPES; genital and cold sores; HIV; Hypertension; schizoaffective; em - PSHx: 20:50 Colostomy; em - Immunization history:: Adult Immunizations up to date. - Social history:: Smoking status: Patient reports the use of cigarette tobacco products, smokes one pack cigarettes per day. ROS: 21:05 Constitutional: Positive for poor PO intake, Negative for body aches, chills, fever. cp 21:05 Eyes: Negative for injury, pain, redness, and discharge. cp 21:05 ENT: Negative for ear pain, sore throat. 21:05 Cardiovascular: Negative for chest pain. 21:05 Respiratory: Negative for cough, shortness of breath, wheezing. 21:05 Abdomen/GI: Positive for abdominal pain, nausea and vomiting, abdominal distension, Negative for hematemesis. 21:05 Neuro: Negative for altered mental status, headache, weakness. 21:05 All other systems are negative. Exam: 21:10 Constitutional: The patient appears alert, awake, non-diaphoretic, non-toxic, well cp developed, well nourished, in obvious pain. 21:10 Head/Face: Normocephalic, atraumatic. cp 21:10 Eyes: Periorbital structures: appear normal, Conjunctiva: normal, no exudate, no injection, Sclera: no appreciated abnormality, Lids and lashes: appear normal, bilaterally. 21:10 ENT: External ear(s): are unremarkable, Nose: is normal, Mouth: Lips: dry, Oral mucosa: dry, Posterior pharynx: Airway: no evidence of obstruction, patent. 21:10 Chest/axilla: Inspection: normal, Palpation: is normal, no crepitus, no tenderness. 21:10 Cardiovascular: Rate: normal, Rhythm: regular. 21:10 Respiratory: the patient does not display signs of respiratory distress, Respirations: normal, no use of accessory muscles, no retractions, labored breathing, is not present, Breath sounds: are clear throughout, no decreased breath sounds, no stridor, no wheezing. 21:10 Abdomen/GI: Inspection: scar(s), are noted in the mid line abdomen, Bowel sounds: active, all quadrants, Palpation: soft, in all quadrants, severe abdominal tenderness, in all quadrants, rebound tenderness, is not appreciated, voluntary guarding, is elicited in all quadrants, ostomy bag noted left lower abdomen with small amount output. 21:10 Back: CVA tenderness, is absent. Vital Signs: 20:48 BP 186 / 112; Pulse 89; Resp 20; Temp 98.4(O); Pulse Ox 97% on R/A; Weight 72.57 kg; em Height 5 ft. 11 in. (180.34 cm); Pain 7/10; 21:52 BP 156 / 106; Pulse 89; Resp 18 S; Pulse Ox 98% on R/A; ad5 20:48 Body Mass Index 22.32 (72.57 kg, 180.34 cm) em MDM: 20:53 Patient medically screened. cp 22:00 Data reviewed: vital signs, nurses notes, lab test result(s), radiologic studies, CT cp scan, I have discussed the patient's presentation/case with the attending Emergency Department Physician; and as a result, I will transfer patient. 23:30 Physician consultation: was contacted at 23:30, regarding regarding transfer, to [facility]. patient's condition, accepting physician will be DR Jackson, hospitalist. 04/29 20:49 Order name: Basic Metabolic Panel; Complete Time: 21:27 04/29 21:28 Interpretation: Normal except: NA 135; K 3.2; GLUC 115; CA 8.3. 04/29 20:49 Order name: CBC with Diff; Complete Time: 23:35 04/29 21:27 Interpretation: Normal except: WBC 11.00; RBC 3.46; HGB 10.4; HCT 29.4; PLT 834; MPV cp 6.9; STEWART% 80.3; LYM% 7.8; NEUT A 8.8. 04/29 20:49 Order name: Hepatic Function; Complete Time: 21:27 04/29 21:28 Interpretation: Normal except: ALK 130; ALB 2.4; GLOB 5.5; A/G 0.4. 04/29 20:49 Order name: Lipase; Complete Time: 21:27 04/29 21:02 Order name: Magnesium; Complete Time: 21:27 [facility] 04/29 21:00 Order name: XRAY Chest (1 view) 04/29 21:15 Order name: Abdomen EDNY 04/29 22:13 Order name: Manual Differential; Complete Time: 23:35 [facility] 04/29 23:35 Interpretation: Normal except: BANDS [F] 5; LYM 5; MONO 14. 04/30 00:09 Order name: SARS-COV-2 RT PCR [facility] 04/29 20:49 Order name: IV Saline Lock; Complete Time: 20:52 04/29 20:49 Order name: Labs collected and sent; Complete Time: 20:52 04/29 21:00 Order name: NG Tube; Complete Time: 21:43 cp Administered Medications: 21:05 Drug: NS 0.9% 1000 ml Route: IV; Rate: 1 bolus; Site: left antecubital; ad5 23:59 Follow up: IV Status: Completed infusion; IV Intake: 1000ml ad5 21:05 Drug: Zofran (Ondansetron) 4 mg Route: IVP; Site: left antecubital; ad5 21:43 Follow up: Response: No adverse reaction ad5 21:06 Drug: Dilaudid (HYDROmorphone) 1 mg {Note: RASS 0.} Route: IVP; Site: left antecubital; ad5 21:43 Follow up: Response: No adverse reaction; Pain is decreased; RASS: Alert and Calm (0) ad5 21:08 Drug: Pepcid (famotidine) 20 mg Route: IVP; Site: left antecubital; ad5 21:43 Follow up: Response: No adverse reaction ad5 21:59 Drug: Zosyn (piperacillin-tazobactam) 3.375 grams Route: IVPB; Infused Over: 60 mins; ad5 Site: left antecubital; 23:55 Follow up: IV Status: Completed infusion ad5 23:50 Drug: Dilaudid (HYDROmorphone) 1 mg {Note: RASS 0.} Route: IVP; Site: left antecubital; ad5 04/30 01:13 Follow up: Response: No adverse reaction; Pain is decreased; RASS: Drowsy (-1) ad5 00:20 Drug: Potassium Chloride 20 mEq Route: IV; Rate: calculated rate; Site: left ad5 antecubital; 01:13 Follow up: IV Status: Infusion continued upon transfer ad5 Disposition: 05:03 Co-signature as Attending Physician, Anibal Moreno MD. rn Disposition: 04/29/21 21:49 Transfer ordered to [facility]. Diagnosis are Small bowel obstruction, Pneumatosis of small bowel. - Reason for transfer: Higher level of care. - Accepting physician is DR Jackson. - Condition is Fair. - Problem is an ongoing problem. - Symptoms have improved. Signatures: Dispatcher [employer] Ashish Gamez RN RN em Nieto, Roman, MD MD rn Page, Corey, PA PA cp Davidson, Andrea ad5 Corrections: (The following items were deleted from the chart) 04/29 21:02 21:01 MAGNESIUM+C.LAB.BRZ ordered. EDMS EDMS 21:15 21:00 Abdomen Pelvis W Con+CT.RAD.BRZ ordered. EDMS EDMS 21:28 21:27 Normal except: NA 135; K 3.2; GLUC 115. cp cp 22:28 21:50 CORONAVIRUS+MR.LAB.BRZ ordered. EDMS EDMS 22:41 21:49 04/29/2021 21:49 Transfer ordered to [facility]. Diagnosis is Small cp bowel obstruction. Reason for transfer: Higher level of care. Accepting physician is Doctor. Condition is Fair. Problem is an ongoing problem. Symptoms have improved. cp 23:36 22:41 04/29/2021 21:49 Transfer ordered to [facility]. Diagnosis is Small cp bowel obstruction; Pneumatosis of small bowel. Reason for transfer: Higher level of care. Accepting physician is Doctor. Condition is Fair. Problem is an ongoing problem. Symptoms have improved. cp 04/30 00:27 04/29 21:10 Abdomen/GI: Inspection: scar(s), are noted in the mid line abdomen, Bowel cp sounds: active, all quadrants, Palpation: soft, in all quadrants, severe abdominal tenderness, in all quadrants, rebound tenderness, is not appreciated, voluntary guarding, is elicited in all quadrants, cp 04/30 01:14 04/29 23:36 04/29/2021 21:49 Transfer ordered to [facility]. Diagnosis is ad5 Small bowel obstruction; Pneumatosis of small bowel. Reason for transfer: Higher level of care. Accepting physician is DR Jackson. Condition is Fair. Problem is an ongoing problem. Symptoms have improved. cp
--- NOTE | 2021-04-29 21:50 | ER ---
Nurse's Notes [facility] Name: Bakari Mcintosh Age: 45 yrs Sex: Male : 1975 Arrival Date: 04/29/2021 Time: 20:48 Bed 16 [facility] MD: Diagnosis: Small bowel obstruction;Pneumatosis of small bowel Presentation: 04/29 20:48 Chief complaint: EMS states: abdominal pain and nausea since yesterday, was seen here em yesterday and left AMA. Coronavirus screen: Client denies travel out of the [place] in the last 14 days. Ebola Screen: Patient negative for fever greater than or equal to 101.5 degrees Fahrenheit, and additional compatible Ebola Virus Disease symptoms Patient denies exposure to infectious person. Patient denies travel to an Ebola-affected area in the 21 days before illness onset. No symptoms or risks identified at this time. Initial Sepsis Screen: Does the patient meet any 2 criteria? No. Patient's initial sepsis screen is negative. Does the patient have a suspected source of infection? No. Patient's initial sepsis screen is negative. Risk Assessment: Do you want to hurt yourself or someone else? Patient reports no desire to harm self or others. Onset of symptoms was April 29, 2021. 20:48 Method Of Arrival: EMS: [facility] em 20:48 Acuity: FREDERIC 3 em Historical: - Allergies: 20:50 Geodon; em 20:50 Haldol; em 20:50 Risperdal; em - PMHx: 20:50 brown reculse bite; HERPES; genital and cold sores; HIV; Hypertension; schizoaffective; em - PSHx: 20:50 Colostomy; em - Immunization history:: Adult Immunizations up to date. - Social history:: Smoking status: Patient reports the use of cigarette tobacco products, smokes one pack cigarettes per day. Screenin:00 Abuse screen: Denies threats or abuse. Denies injuries from another. Nutritional ad5 screening: No deficits noted. Tuberculosis screening: No symptoms or risk factors identified. Fall Risk No fall in past 12 months (0 pts). Secondary diagnosis (15 points) IV access (20 points). Ambulatory Aid- None/Bed Rest/Nurse Assist (0 pts). Gait- Normal/Bed Rest/Wheelchair (0 pts) Mental Status- Oriented to own ability (0 pts). Total [place] Fall Scale indicates Low Risk Score (25-44 pts). Fall prevention measures have been instituted. Side Rails Up X 2 Placed close to Nursing Station As available Patient and Family Educated on Fall Prevention Program and strategies. Assessment: 20:57 General: Appears distressed, uncomfortable, Behavior is cooperative, agitated. Pain: ad5 Complains of pain in abdomen Pain currently is 10 out of 10 on a pain scale. Neuro: Level of Consciousness is awake, alert, obeys commands, Oriented to person, place, time, situation, Appropriate for age. Cardiovascular: Heart tones present Capillary refill < 3 seconds Patient's skin is warm and dry. Rhythm is regular. Respiratory: No deficits noted. Airway is patent Respiratory effort is even, unlabored, Respiratory pattern is regular, symmetrical. GI: Guarding noted X 4 quads. Reports lower abdominal pain, upper abdominal pain, nausea, vomiting, Pt with recent colostomy placed this past week. Reports left AMA yesterday after this ED to transfer pt to hospital where had surgery performed for bowel obstruction. Pt reports continued pain and n/v. Pt moaning in stretcher upon arrival, guarding to abd. Pt with colostomy site to LLQ, green/loose output noted. Well-healing surgical sites noted. : No deficits noted. No signs and/or symptoms were reported regarding the genitourinary system. Derm: Skin is pink, warm \T\ dry. 21:51 Reassessment: Patient appears in no apparent distress at this time. No changes from ad5 previously documented assessment. Patient and/or family updated on plan of care and expected duration. Pain level reassessed. Patient states feeling better. 22:49 Reassessment: Patient appears in no apparent distress at this time. No changes from ad5 previously documented assessment. Patient and/or family updated on plan of care and expected duration. Pain level reassessed. 04/30 00:01 Reassessment: Pt report to Candy Craven RN; questions/concerns addressed. Consent ad5 for transfer singed and EMS notified of pt need for transport at this time. 00:02 Reassessment: Pt reports pain increasing, provider aware, awaiting orders at this time. ad5 Pt repositioned for comfort. Will continue to monitor. 00:35 Reassessment: Patient appears in no apparent distress at this time. Patient is alert, ad5 oriented x 3, equal unlabored respirations, skin warm/dry/pink. Patient states symptoms have improved. 01:13 GI: ad5 Vital Signs: 04/29 20:48 BP 186 / 112; Pulse 89; Resp 20; Temp 98.4(O); Pulse Ox 97% on R/A; Weight 72.57 kg; em Height 5 ft. 11 in. (180.34 cm); Pain 7/10; 21:52 BP 156 / 106; Pulse 89; Resp 18 S; Pulse Ox 98% on R/A; ad5 20:48 Body Mass Index 22.32 (72.57 kg, 180.34 cm) em ED Course: 20:48 Patient arrived in ED. em 20:48 Berry Chisholm PA is PHCP. cp 20:48 Anibal Moreno MD is Attending Physician. cp 20:50 Triage completed. em 20:50 Arm band placed on. em 20:51 Alexandr Crawley is Primary Nurse. ad5 20:57 No provider procedures requiring assistance completed. Initial lab(s) drawn, by va, ad5 sent to lab. Inserted saline lock: 18 gauge in left antecubital area, using aseptic technique. Blood collected. 21:00 Patient has correct armband on for positive identification. Bed in low position. Call ad5 light in reach. Side rails up X2. teletypesetter monitor on. Pulse ox on. NIBP on. Door closed. Noise minimized. Warm blanket given. Head of bed lowered. 21:20 Abdomen In Process Unspecified. EDMS 21:33 XRAY Chest (1 view) In Process Unspecified. EDMS 21:42 NGT: inserted 16 Fr. via left nare. verified placement of air over stomach, verified ad5 return of gastric contents, to intermittent suction. Returned gastric contents. Patient tolerated well. 22:18 initiated a transfer with Daniella from the [facility]. /. eb 23:[address] Jackson the hospitalist monorail charger operator for [facility] With rossy Villasenor for patient transfer consultation. 23:33 administrative approval given by Daniella Garibay Rn/ Patient has been accepted to [facility] where the patient had his previous surgery on 04/18/21. Dr. Samuel Jackson has accepted the patient in transfer/ patient is going to the surgical unit there. report to be called to [phone]. 04/30 01:14 Patient transferred, IV remains in place. ad5 Administered Medications: 04/29 21:05 Drug: NS 0.9% 1000 ml Route: IV; Rate: 1 bolus; Site: left antecubital; ad5 23:59 Follow up: IV Status: Completed infusion; IV Intake: 1000ml ad5 21:05 Drug: Zofran (Ondansetron) 4 mg Route: IVP; Site: left antecubital; ad5 21:43 Follow up: Response: No adverse reaction ad5 21:06 Drug: Dilaudid (HYDROmorphone) 1 mg {Note: RASS 0.} Route: IVP; Site: left antecubital; ad5 21:43 Follow up: Response: No adverse reaction; Pain is decreased; RASS: Alert and Calm (0) ad5 21:08 Drug: Pepcid (famotidine) 20 mg Route: IVP; Site: left antecubital; ad5 21:43 Follow up: Response: No adverse reaction ad5 21:59 Drug: Zosyn (piperacillin-tazobactam) 3.375 grams Route: IVPB; Infused Over: 60 mins; ad5 Site: left antecubital; 23:55 Follow up: IV Status: Completed infusion ad5 23:50 Drug: Dilaudid (HYDROmorphone) 1 mg {Note: RASS 0.} Route: IVP; Site: left antecubital; ad5 04/30 01:13 Follow up: Response: No adverse reaction; Pain is decreased; RASS: Drowsy (-1) ad5 00:20 Drug: Potassium Chloride 20 mEq Route: IV; Rate: calculated rate; Site: left ad5 antecubital; 01:13 Follow up: IV Status: Infusion continued upon transfer ad5 Intake: 04/29 23:59 IV: 1000ml; Total: 1000ml. ad5 Outcome: 21:49 ER care complete, transfer ordered by MD. napoles 04/30 01:14 Transferred by ground EMS to [facility], Transfer form completed. ad5 Condition: stable Instructed on the need for admit, Demonstrated understanding of instructions. 01:14 Patient left the ED. ad5 Signatures: Dispatcher [employer] Ashish Gamez RN RN em Page, Berry, PA PA cp Boudreaux, Melida eb Crawley, Alexandr ad5 Corrections: (The following items were deleted from the chart) 04/29 22:28 21:53 CORONAVIRUS+ drawn and sent. ad5 EDMS 23:35 22:18 initiated a transfer with Katherin from the [facility]. eb eb
[2021-04-29] MEDS ORDERED: PIPER/TAZO/NS 3.375gm 3.375 GM/100 ML BAG ONE (22:14)
[2021-04-29 23:32] LABS: Blood Morphology Comment NOT SEEN (NOT SEEN); Platelet Estimate ADEQ
[2021-04-30] MEDS ORDERED: KCL 20 MEQ/100 mL IVPB 20 MEQ/100 ML BAG IV ONE (00:27)
[2021-04-30 01:36] VITALS: TEMP 98.4
[2021-04-30 01:39] VITALS: BP 156/106; O2SAT 98
--- NOTE | 2021-04-30 08:18 | RAD REPORT ---
EXAM DESCRIPTION: RAD - Chest Single View - 04/29/2021 9:32 pm CLINICAL HISTORY: ABDOMINAL DISTENTION COMPARISON: April 2020 TECHNIQUE: AP portable chest image was obtained 04/29/2021 9:32 pm . FINDINGS: Lung volumes are much lower than the comparison. No focal consolidation. Cardiac silhouett e is situated by low lung volumes. Patient likely has borderline cardiomegaly as a baseline. Trachea is in the midline. No measurable pleural effusion and no pneumothorax. No acute bony abnormality seen . No acute aortic findings suspected. IMPRESSION: No acute cardiopulmonary process. Exam is limited due to low lung volume.
--- NOTE | 2021-04-30 11:17 | RAD REPORT ---
EXAM DESCRIPTION: CT - Abdomen Pelvis Wo Contrast - 04/30/2021 4:25 am CLINICAL HISTORY: Abd pain;Abdominal distention. COMPARISON: CT of the abdomen and pelvis from today at 0150 hours. TECHNIQUE: Serial axial CT images were obtained from above the diaphragm through the pubic symphysis without administration of intravenous or oral contrast. All CT scans are performed using dose optimization techniques as appropriate, including automated exp osure control and/or standardized protocols, where dose is adjusted for indication for exam and body habitus. FINDINGS: Mild motion degradation in the mid abdomen. Thoracic: No significant abnormality. Hepatobiliary: Hepatomegaly, measuring 21.7 cm in length. No obvious concerning hepatic lesion identi fied in the absence of intravenous contrast. Grossly unremarkable appearance of the contracted gallbl adder. No biliary ductal dilatation. Pancreas: Unremarkable. Spleen: Unremarkable. Gastrointestinal: No significant interval change in the small bowel obstruction, with moderate fluid and gas filled dilation of small bowel loops, with possible pneumatosis of a bowel loop in the midlin e lower abdomen (axial image 70). Suspected transition point in the anterior midline abdomen, around axial image 65. Some loops of decompressed distal ileum are seen. Small amount of fecal material in t he colon, status post left hemicolectomy with a left lower quadrant colostomy. Mild diffuse mesenteri c edema. No obvious walled off fluid collections. Adrenals: No abnormality identified in either adrenal gland. Renal: No obvious parenchymal abnormality in either kidney in the absence of intravenous contrast. No hydronephrosis or urolithiasis. Bladder/Reproductive: Unremarkable appearance of the urinary bladder by CT technique. Vascular/Lymphatics: No lymphadenopathy identified by CT size criteria. Abdominal aorta is normal in caliber. Mild calcific atherosclerosis. Musculoskeletal: No concerning osseous lesion identified. Fluid / peritoneum: Trace free fluid in the pelvis. No free intraperitoneal air identified. IMPRESSION: 1. Redemonstration of the small bowel obstruction, with suspected transition point in the anterior midline abdomen. Suspected mild pneumatosis of a bowel loop in the midline lower abdomen . 2. Additional findings are unchanged since the recent prior exam. THIS REPORT CONTAINS FINDINGS THAT MAY BE CRITICAL TO PATIENT CARE: The findings were verbally discu ssed via telephone conference with physician preschool assistant Berry Chisholm PA-C, on 04/29/2021 9:43 PM CDT. e results were acknowledged and understood. Electronically signed by: Kristin Randolph MD 04/29/2021 9:50 PM CDT Due to temporary technical issues with the PACS/Fluency reporting system, reports are being signed by the in house radiologist without review as a courtesy to ensure prompt reporting. The interpreting r adiologist is fully responsible for the content of the report.
== END 2021-04-30 01:14 | disposition short-term general hospital (02) ==
LOC: ER 20:47
DX: K63.89 Other specified diseases of intestine (principal); F17.210 Nicotine dependence, cigarettes, uncomplicated; I10 Essential (primary) hypertension; Z21 Asymptomatic human immunodeficiency virus [HIV] infection status; Z88.5 Allergy status to narcotic agent; Z88.8 Allergy status to other drugs, medicaments and biological substances; Z20.822 Contact with and (suspected) exposure to COVID-19
CPT/HCPCS: 85025; 80048; 36415; 83735; 80076; 83690; 74176; 71045; U0003; J3480; J2543; J1170 ×2; J7030 ×2; J2405; 96361; 96365; 96366; 96367; 96375; 99285

== ENCOUNTER 2021-05-16 03:07 | Emergency (ER) | payer OTHER ==
--- OUTSIDE RECORDS SUMMARY | 2021-05-16 03:17 | XMS REPORT | Continuity of Care Document ---
:1975 Author Organization [facility] t Address [address] [place] [address] Care Team Providers Name Role Phone Asked, No Pcp Primary Care Physician Unavailable DR Radha HIDALGO Attending Clinician Unavailable DR WARREN Attending Clinician Unavailable DR Margret BONILLA Attending Clinician Unavailable DR MANISH Attending Clinician Unavailable MD KELSEY FUENTES Attending Clinician Unavailable GINA Attending Clinician Unavailable Jacquelin HANLEY JR Attending Clinician Unavailable DR Radha HIDALGO Admitting Clinician Unavailable DR WARREN Admitting Clinician Unavailable DR Margret BONILLA Admitting Clinician Unavailable DR MANISH Admitting Clinician Unavailable MD KELSEY FUENTES Admitting Clinician Unavailable Jacquelin HANLEY JR Admitting Clinician Unavailable Payers Payer Name Policy Type Policy Number Effective Date Expiration Date S ource Problems Condition Condition Condition Status Onset Resolution Last Treating Co mments Source Name Details Category Date Date Treatment Clinician Date HIV (human HIV (human Disease Active H [place] [facility] immunodefi 01-16 Nd thodi ciency ciency 00:00: st virus virus 00 infection) infection) Schizophre Schizophre Disease Active H radha [facility] 01-16 Methodi 00:00: st 00 Dyspnea Dyspnea Disease Active [place] 3-04 Methodi 00:00: st 00 Rash Rash Disease Active [place] -04 Methodi 00:00: st 00 Lump or Lump or Disease Active 2009-11 Peña mass in mass in Health breast _ breast _ 00:00: lt lt 00 Refraction Refraction Disease Active 2009-11 H arris error error 0 Health 00:00: 00 Obesity Obesity Disease Active 2009-11 Peña 0 Health 00:00: 00 Nicotine Nicotine Disease Active 2009-11 Harri s addiction addiction Heal th 00:00: 00 Tattoo Tattoo Disease Active 2009-11 Peña 0 Health 00:00: 00 Acne Acne Disease Active 2009-11 Peña 0 Health 00:00: 00 Health Health Disease Active 2009-11 Overview: Casey maintencarl maintenanc [facility] e e 00:00: g of this examinatio examinatio 00 note n n might be different from the original. PSA\Recta l Exam : 08/23 refusedFO BT (50 + Annual):n aCholeste rol (20 + every 5 yrs):orde npiDfyM6J : naMicroal bumin: naLast Td/Dtap: orderedFl u Vaccine (Annual): 07/24Pneum ovax: naLast PPD (yearly -35): 06/23Diabe tic Foot Exam (Annual): naDiabeti c [...] Memoria d fracture 05:14:21 l of shaft [place] of Unspecifie humerus, d fracture left arm, of shaft initial of encounter humerus, for closed left arm, fracture initial encounter for closed fracture Active Diagnosis 11/23/2016 Rosalino Martinez Essential Problem Active 2016-11-23 Me moria (primary) 05:14:21 l hypertensi Yobani n on Essential (primary) hypertensi on Active Problem 7 Rosalino Martinez Psychosis, Diagnosis Active 2016-11-23 Memoria unspecifie 05:14:21 l d [place] psychosis Psychosis, type unspecifie d psychosis type Active Diagnosis 11/23/2016 Rosalino Martinez Schizo Schizo Disease Active [place] affective affective Heal th schizophre schizophre junito junito Bipolar Bipolar Disease Active [place] disorder disorder Health Allergies, Adverse Reactions, Alerts [...] Propensi Active [place] one ty to 3- Methodi adverse 00:00: st reaction 00 s to drug N.K.D.A. N.K.D.A. Active Info Not 2015-11 Tico vanessa Available 12-27 l 00:00: [place] 00 ziprasid DA Active [place] [facility] one 04-05 Corpus 00:00: [address] Family History Family Member Diagnosis Comments Start Date Stop Date Source unknown Unknown Fam Hx [facility] Unknown Family Family History 2016-11-23 2016-11-23 Memori al Kyree Member 05:14:21 05:14:21 Social History Social Habit Start Date Stop Date Quantity Comments Source History of tobacco Cigarette Smoker [facility] use Sex Assigned At [facility] alth Tobacco use and 2020-05-14 2020-05-14 Never used [facility] exposure 00:00:00 00:00:00 [facility] TobaccoUse: 2016-10-26 2016-10-26 [facility] 00:00:00 00:00:00 Cigarettes smoked 2010-09-09 2010-09-09 [facility] current (pack per 00:00:00 00:00:00 day) - Reported Alcohol intake 2010-09-09 2010-09-09 Current [facility] 00:00:00 00:00:00 non-drinker of alcohol (finding) Smoking Status Start Date Stop Date Source Current every day smoker 2010-09-09 00:00:00 [facility] Medications Ordered Filled Start Stop Current Ordering Indication Dosage Frequency Signature Comments Components Source Medication Medication Date Date Medication? Clinician (SIG) Name Name albuterol 2019-0 2020- No 2{puff} Q4H Inhale 2 [facility] (PROAIR 05-14 07-31 puffs Methodi HFA) 90 00:00: 23:[address] mcg/actuati 00 :00 (four) on inhaler hours as needed for wheezing for up to 30 days. omeprazole Yes 20mg QD Take [address] (PRILOSEC) 7-21 by mouth [facility] - 20 MG 22:01: daily. Medical capsule [address] [place] [address] Atenolol 2015-11 Yes Rosalino 1 tablet Me [...] ts Source Name Name PPD 2011-12-28 Completed [facility] 00:00:00 Tdap Tetanus, 2010-09-09 Completed [facility] th diphtheria, 00:00:00 acellular pertussis Vaccine Influenza Vaccine 2010-08-04 Completed [facility] 00:00:00 Vital Signs Vital Name Observation Time Observation Value Comments Source Weight 2016-10-26 20:00:00 [facility] Height 2016-10-26 20:00:00 [facility] Heart Rate 2016-10-26 20:00:00 [facility] Diastolic (mm Hg) 2016-10-26 20:00:00 [facility] Systolic (mm Hg) 2016-10-26 20:00:00 Tico Adorno Procedures This patient has no known procedures. Plan of Care Planned Activity Planned Date Details Comments Source Future Scheduled 2021-08-14 IMM Influenza Seasonal [facility] Test 00:00:00 Aug to January (>/= 19 yrs) [code = IMM Influenza Seasonal Aug to January (>/= 19 yrs)] Future Scheduled 2021-06-14 INFLUENZA VACCINE [place] [facility] Test 00:00:00 [code = INFLUENZA VACCINE] Future [...] s - Test 00:00:00 (procedure) [code = [facility] [id number]] Future Scheduled 1985 COVID-19 Vaccine (1) [facility] Test 00:00:00 [code = COVID-19 Vaccine (1)] Future Scheduled 1985 COVID-19 VACCINE (1) [facility] c[facility]de [facility] Test 00:00:00 [code = COVID-19 VACCINE (1)] Future Scheduled [address] [facility] - Test 00:00:00 0-64 YRS (1 of 1 - Medical C enter PPSV23) [code = PNEUMOCOCCAL VACCINE 0-64 YRS (1 of 1 - PPSV23)] Encounters Start End Encounter Admission Attending Care Care Encounter Source Date/Time Date/Time Type Type Clinicians Facility Department ID 2021-04-30 Inpatient U [facility] [id number] Mem [facility]ria 02:29:00 l Kyree [facility] 2020-11-17 2020-11-17 Emergency E GWEN [facility] ECC [id number] [place] 15:49:00 17:03:00 [facility] 2020-10-02 2020-10-03 Emergency E KRUNAL KELLEY [facility] [id number] [place] 20:43:00 00:00:00 [facility] 2020-10-01 2020-10-01 Emergency E NICOLE BONILLA [facility] [id number] [place] 03:36:00 07:10:00 [facility] 2020-09-18 2020-09-18 Emergency E KRUNAL KELLEY [facility] [id number] [place] 21:02:00 22:31:00 [facility] 2020-09-10 2020-09-10 Emergency E ELISA HAMMOND [facility] [id number] [place] 01:56:00 04:21:00 [facility] 2020-05-14 2020-05-14 Emergency E [id number] 21:07:00 21:07:00 l Kyree Johnson [facility] 2020-05-14 2020-05-14 Emergency GINA [facility] [id number] [place] [address] 00:00:00 00:00:00 JIGNESHKUMA [facility] 2018-11-26 2018-11-26 Emergency [facility] [id number] [place] 08:23:00 08:23:00 Health 2018-06-21 2018-06-21 Outpatient C DAYAN [facility] RAD [id number] [place] 15:13:00 23:59:00 DOUG ECHEVARRIA [facility] 2018-01-04 2018-01-04 Outpatient C DAYAN [facility] RAD [id number] [place] 13:20:00 23:59:00 DOUG [facility]VARRIA [facility] 2016-10-26 2016-10-26 Outpatient Rosalino Doherty [id number] [...] < 235 ng/mL D-DU* PRO TIME AND [id number] 21:51:00 Test Item Value Reference Range Interpretation [...] or LMW Heparin. Order Code is ANTI-XA [id number] 21:38:00 Test Item Value Reference Range Interpretation Comments CPK (test code = 32A) 188 IU/L 39-308 TROPONIN [id number] 21:38:00 Test Item Value Reference Range Interpretation Comments TROPONIN I (test code = A84) <0.015 ng/mL 0.000-0.045 COMPREHENSIVE METABOLIC [id number] 21:38:00 Test Item Value Reference Range Interpretation [...] (test code = <10 mg/dL <=10 56A) [id number] 21:29:00 Test Item Value Reference Range Interpretation [...] (test code = RBCMOR) NORMAL URINALYSIS WITH [id number] 06:41:00 Test Item Value Reference Range Interpretation [...] code = USPERM) /HPF NONE DRUGS OF [id number] 06:39:00 Test Item Value Reference Range Interpretation [...] ng/mL Barbiturates 200 ng/mL Opiates 2000 ng/mL [id number] 04:29:00 Test Item Value Reference Range Interpretation Comments ACETAMINPH (test code = 94M) <2.0 ug/mL 10.0-30.0 L COMPREHENSIVE METABOLIC [id number] 04:29:00 Test Item Value Reference Range Interpretation [...] (test code = <10 mg/dL <=10 56A) [id number] 04:21:00 Test Item Value Reference Range Interpretation [...] <10 mg/dL <=10 56A) PRO TIME AND [id number] 02:56:00 Test Item Value Reference Range Interpretation [...] Heparin. Order Code is ANTI-XA DRUGS OF [id number] 02:50:00 Test Item Value Reference Range Interpretation [...] 200 ng/mL Opiates 2000 ng/mL BRAIN NATRIURETIC [id number] 02:44:00 Test Item Value Reference Range Interpretation Comments proBNP (test code = PBNP) 533 pg/mL 0-125 H TROPONIN [id number] 02:43:00 Test Item Value Reference Range Interpretation Comments TROPONIN I (test code = A84) <0.015 ng/mL 0.000-0.045 COMPREHENSIVE METABOLIC [id number] 02:40:00 Test Item Value Reference Range Interpretation [...] (test code = 31A) 23 IU/L <=78 [id number] 02:36:00 Test Item Value Reference Range Interpretation Comments MAGNESIUM (test code = 48A) 2.3 mg/dL 1.8-2.4 LIPASE [id number] 02:35:00 Test Item Value Reference Range Interpretation Comments LIPASE (test code = 60A) 136 IU/L 73-393 URINALYSIS WITH [id number] 02:30:00 Test Item Value Reference Range Interpretation [...] in Respiratory specimen by ARMIDA with probe [id number] 13:44:24 Test Item Value Reference Range Interpretation Comments SARS coronavirus 2 RNA Not detected Not-Detected [Presence] in Respiratory specimen by ARMIDA with probe detection (test code = 58209-7) XR SPINE CERVICAL *NT*2018-06-21 15:47:21Cervical spine, 5 viewsLocation code: G1Vzupislo history: Neck pain after strainComments: AP, oblique, [...] unremarkable. Impression: No acuteabnormality.XR SPINE LUMBAR COMPLETE *NT*2018-01-04 14:55:51Lumbar spine series, 5 viewsLocation Code: [id number] HISTORY: M54.5: LOW BACK PAINCOMPARISON: None.COMMENTS: AP, oblique, and lateral views of the lumbar spine demonstrate noacute fracture or malalignm ent. The soft tissues are unremarkable.IMPRESSION: No acute radiographic abnormality.XR KNEE RIGHT 3 VIEWS *NT*2018-01-04 14:55:19Right knee, 3 viewsLocation Code: H4RBLZWANK HISTORY:M25.561: PAIN IN RIGHT KNEECOMMENTS: AP, lateral, and oblique views of the right knee demonstrate no acutefracture or malalignment. The soft tissuesare unremarkable.IMPRESSION: No acute radiographic abnormality.XR FOOT RIGHT COMPLETE 3V *NT*2018-01-04 14:54:55Right foot, 3 viewsLocation Code: J3HDSISJUR HISTORY: M79.671: PAIN IN RIGHT FOOTCOMMENTS: AP, [...] *NT* 2018-01-04 14:53:52Right ankle, 3 viewsLocation Code: S7CURLNKAK HISTORY: Pain.COMMENTS: AP, lateral, and oblique views of the right ankle demonstrate noacute fracture or malalignment. Mild medial tibiotalar arthrosis is noted. Thesoft tissues are unremarkable.IMPRESSION: No acute radiographic abnormality. Mild arthrosis.
[2021-05-16 03:53] LABS: Potassium 3.4 mmol/L (3.5-5.1)
[2021-05-16 03:55] LABS: Absolute Lymphocytes (CBC) 1.5 K/uL (0.7-4.9); Basophils % 0.7 % (0-1.3); Hematocrit 25.6 % (39.6-49.0); Lymphocytes % 10.1 % (15.3-44.8); MPV 7.4 fL (7.6-11.3); RBC Red Blood Cell Count 3.04 M/uL (4.33-5.43)
[2021-05-16] MEDS ORDERED: NA CHLORIDE 0.9% 1,000 ML ONE (03:55)
[2021-05-16] MEDS ORDERED: CLINDAMYCIN 600MG/D5W 600 MG/50 ML BAG IV ONE (04:53)
--- NOTE | 2021-05-16 05:14 | EDPHYS ---
Physician Documentation [facility] Name: Bakari Mcintosh Age: 45 yrs Sex: Male : 1975 Arrival Date: 05/16/2021 Time: 03:09 Bed 7 Private MD: ED Physician Anibal Moreno HPI: 05/16 03:23 This 45 yrs old Male presents to ER via EMS with complaints of possible wound rn infection. 03:23 The patient presents with abdominal pain in the lower abdomen. Onset: The rn symptoms/episode began/occurred at an unknown time. The symptoms do not radiate. Associated signs and symptoms: Pertinent negatives: nausea and vomiting, diarrhea, fever. The symptoms are described as achy. Modifying factors: The symptoms are alleviated by nothing, the symptoms are aggravated by touching the area. Severity of pain: At its worst the pain was mild in the emergency department the pain is unchanged. The patient has not experienced similar symptoms in the past. The patient has been recently seen by a physician:. S/p colostomy a month or so ago following foreign body removal. Seen here recently and transferred for bowel obstruction, patient states had lysis of adhesions and another portion of intestine removed. Here today because ran out of colostomy bags, and also concerned that lower abd wound is draining a little and place where was stapled is opening larger. States some skyler removed while at hospital, but defect getting larger with clear/white discharge. No fever. . Historical: - Allergies: 03:12 Geodon; jm8 03:12 Haldol; jm8 03:12 Risperdal; jm8 - Home Meds: 03:12 amlodipine oral [Active]; Pepcid Oral [Active]; Hydrocodone-Acetaminophen 5/500 Oral jm8 [Active]; - PMHx: 03:12 HERPES; genital and cold sores; HIV; Hypertension; schizoaffective; brown reculse bite; jm8 - PSHx: 03:12 Colostomy; jm8 - Immunization history:: Adult Immunizations up to date, Client reports having NOT received the Covid vaccine. - Social history:: Smoking status: Patient reports the use of cigarette tobacco products, smokes one pack cigarettes per day. - Family history:: not pertinent. - Hospitalizations: : Patient was recently seen at. ROS: 03:23 Constitutional: Negative for fever, chills, and weight loss, Eyes: Negative for injury, rn pain, redness, and discharge, Neck: Negative for injury, pain, and swelling, Cardiovascular: Negative for chest pain, palpitations, and edema, Respiratory: Negative for shortness of breath, cough, wheezing, and pleuritic chest pain, Abdomen/GI: + open wound and lower abd pain Back: Negative for injury and pain, MS/Extremity: Negative for injury and deformity, Skin: Negative for injury, rash, and discoloration, Neuro: Negative for headache, weakness, numbness, tingling, and seizure. Exam: 03:23 Constitutional: This is a well developed, well nourished patient who is awake, alert, rn and in no acute distress. Head/Face: Normocephalic, atraumatic. Cardiovascular: Regular rate and rhythm. No pulse deficits. Respiratory: No increased work of breathing, no retractions or nasal flaring. Abdomen/GI: Soft, non-tender, lower midline abd wound with approx 3 cm dehischence and clear/white drainage, no foul smell, no peritoneal signs. Missing colostomy bag with pasty stool coming out of stoma. Skin: Warm, dry MS/ Extremity: Pulses equal, no cyanosis. Neurovascular intact. Full, normal range of motion. Equal circumference. Neuro: Awake and alert, GCS 15 Vital Signs: 03:09 BP 150 / 103; Pulse 97; Resp 16; Temp 98.1; Pulse Ox 99% on R/A; Weight 68.04 kg; [facility] Height 5 ft. 11 in. (180.34 cm); Pain 6/10; 05:24 BP 143 / 92; Pulse 87; Resp 16; Pulse Ox 99% on R/A; [facility] 03:09 Body Mass Index 20.92 (68.04 kg, 180.34 cm) [facility] MDM: 03:11 Patient medically screened. rn 05:11 Differential diagnosis: bowel obstruction, diverticulitis, non-specific abd pain, wound rn dehiscence, wound infection, cellulitis. Data reviewed: vital signs, nurses notes, lab test result(s), radiologic studies, CT scan, and as a result, I will discharge patient. Counseling: I had a detailed discussion with the patient and/or guardian regarding: the historical points, exam findings, and any diagnostic results supporting the discharge/admit diagnosis, lab results, radiology results, the need for outpatient follow up, to return to the emergency department if symptoms worsen or persist or if there are any questions or concerns that arise at home. Response to treatment: the patient's symptoms have markedly improved after treatment, and as a result, I will discharge patient. Special discussion: I discussed with the patient/guardian in detail that at this point there is no indication for admission to the hospital. It is understood, however, that if the symptoms persist or worsen the patient needs to return immediately for re-evaluation. ED course: No acute findings other than wound dehiscence on CT abdomen, will treat with abx and dressing changes. Has f/u next week with surgery. Return precautions given and understood. Pt rushing discharge because wants to go smoke.. 05/16 03:12 Order name: CBC with Diff; Complete Time: 03:57 rn 05/16 03:12 Order name: Basic Metabolic Panel; Complete Time: 03:57 rn 05/16 03:12 Order name: Procalcitonin; Complete Time: 04:22 rn 05/16 03:12 Order name: CT Abd/Pelvis - IV Contrast Only rn 05/16 03:12 Order name: IV Start; Complete Time: 03:33 rn Administered Medications: 03:40 Drug: NS 0.9% 1000 ml Route: IV; Rate: 1000 ml; Site: right forearm; jm8 05:02 Follow up: IV Status: Completed infusion jm8 04:34 Drug: Clindamycin 600 mg Route: IVPB; Infused Over: 30 mins; Site: right forearm; jm8 05:02 Follow up: Response: No adverse reaction; IV Status: Completed infusion jm8 Disposition Summary: 05/16/21 05:13 Discharge Ordered Location: Home rn Problem: new rn Symptoms: have improved rn Condition: Stable rn Diagnosis - Disruption of external operation (surgical) wound, not elsewhere classified rn - Cellulitis, unspecified rn Followup: rn - With: Private Physician - When: As needed - Reason: Recheck today's complaints, Re-evaluation by your physician Discharge Instructions: - Discharge Summary Sheet rn - Cellulitis, Adult rn - How to Change Your Wound Dressing rn - Wound Dehiscence rn Forms: - Medication Reconciliation Form rn - Thank You Letter rn - Antibiotic learning center coordinator - Prescription Opioid Use rn Prescriptions: - Clindamycin HCl 300 mg Oral Capsule - take 1 capsule by ORAL route every 6 hours for 10 days; 40 capsule; Refills: 0, rn Product Selection Permitted Signatures: Dispatcher [employer] Anibal De Anda MD MD rn Malcaba, Joseph, RN RN jm8
--- NOTE | 2021-05-16 05:14 | ER ---
Nurse's Notes [facility] Name: Bakari Mcintosh Age: 45 yrs Sex: Male : 1975 Arrival Date: 05/16/2021 Time: 03:09 Bed 7 Private MD: Diagnosis: Disruption of external operation (surgical) wound, not elsewhere classified;Cellulitis, unspecified Presentation: 05/16 03:09 Chief complaint: EMS states: patient has been complaining of chest pain, abdominal jm8 pain, and back pain. Recently seen here for bowel obstruction and transferred to [facility]. Coronavirus screen: Client denies travel out of the [place] in the last 14 days. Ebola Screen: Patient negative for fever greater than or equal to 101.5 degrees Fahrenheit, and additional compatible Ebola Virus Disease symptoms Patient denies exposure to infectious person. Patient denies travel to an Ebola-affected area in the 21 days before illness onset. Initial Sepsis Screen: Does the patient meet any 2 criteria? No. Patient's initial sepsis screen is negative. Does the patient have a suspected source of infection? No. Patient's initial sepsis screen is negative. Risk Assessment: Do you want to hurt yourself or someone else? Patient reports desire/thoughts of hurting themselves or someone else. Provider notified. Onset of symptoms was May 15, 2021. 03:09 Method Of Arrival: EMS: [facility] 03:09 Acuity: FREDERIC 3 jm8 Triage Assessment: 03:14 General: Appears in no apparent distress. uncomfortable, Behavior is calm, cooperative, jm8 appropriate for age. Pain: Complains of pain in back, chest and abdomen Pain currently is 6 out of 10 on a pain scale. EENT: No deficits noted. No signs and/or symptoms were reported regarding the EENT system. Neuro: No deficits noted. Cardiovascular: No deficits noted. Respiratory: No deficits noted. GI: Reports lower abdominal pain, upper abdominal pain. GI: Colostomy site is clean and dry. Ostomy appliance is not intact. : No deficits noted. No signs and/or symptoms were reported regarding the genitourinary system. Derm: Skin is intact, is healthy with good turgor, Skin is dry, Skin is pink, warm \T\ dry. Wound noted abdomen Wound is open abdominal wound from recent abdominal surgery. Historical: - Allergies: 03:12 Geodon; jm8 03:12 Haldol; jm8 03:12 Risperdal; jm8 - Home Meds: 03:12 amlodipine oral [Active]; Pepcid Oral [Active]; Hydrocodone-Acetaminophen 5/500 Oral jm8 [Active]; - PMHx: 03:12 HERPES; genital and cold sores; HIV; Hypertension; schizoaffective; brown reculse bite; jm8 - PSHx: 03:12 Colostomy; jm8 - Immunization history:: Adult Immunizations up to date, Client reports having NOT received the Covid vaccine. - Social history:: Smoking status: Patient reports the use of cigarette tobacco products, smokes one pack cigarettes per day. - Family history:: not pertinent. - Hospitalizations: : Patient was recently seen at. Screenin:14 Abuse screen: Denies threats or abuse. Denies injuries from another. Nutritional jm8 screening: No deficits noted. Tuberculosis screening: No symptoms or risk factors identified. Fall Risk None identified. Vital Signs: 03:09 BP 150 / 103; Pulse 97; Resp 16; Temp 98.1; Pulse Ox 99% on R/A; Weight 68.04 kg; jm8 Height 5 ft. 11 in. (180.34 cm); Pain 6/10; 05:24 BP 143 / 92; Pulse 87; Resp 16; Pulse Ox 99% on R/A; jm8 03:09 Body Mass Index 20.92 (68.04 kg, 180.34 cm) jm8 ED Course: 03:09 Patient arrived in ED. jm8 03:11 Anibal Moreno MD is Attending Physician. rn 03:12 Triage completed. jm8 03:14 Patient has correct armband on for positive identification. Bed in low position. Call jm8 light in reach. Side rails up X2. 03:14 Arm band placed on right wrist. jm8 03:33 Inserted saline lock: 20 gauge in right forearm, using aseptic technique. jm8 04:45 CT Abd/Pelvis - IV Contrast Only In Process Unspecified. EDMS 05:25 No provider procedures requiring assistance completed. IV discontinued, intact. jm8 Administered Medications: 03:40 Drug: NS 0.9% 1000 ml Route: IV; Rate: 1000 ml; Site: right forearm; jm8 05:02 Follow up: IV Status: Completed infusion jm8 04:34 Drug: Clindamycin 600 mg Route: IVPB; Infused Over: 30 mins; Site: right forearm; barbara 05:02 Follow up: Response: No adverse reaction; IV Status: Completed infusion jm8 Outcome: 05:13 Discharge ordered by . rn 05:25 Discharged to home ambulatory. jm8 05:25 Condition: good 05:25 Discharge instructions given to patient, Instructed on discharge instructions, follow up and referral plans. medication usage, Demonstrated understanding of instructions, follow-up care, medications, Prescriptions given X 1. 05:25 Patient left the ED. jm8 Signatures: Dispatcher [employer] EDAnibal Mcguire MD MD rn Malcaba, Joseph, RN RN jm8
[2021-05-16 05:33] VITALS: TEMP 98.1; O2SAT 99
[2021-05-16 05:35] VITALS: BP 143/92
--- NOTE | 2021-05-17 11:57 | RAD REPORT ---
EXAM DESCRIPTION: CT Abdomen and Pelvis With Intravenous Contrast CLINICAL HISTORY: The patient is 45 years old and is Male; recent surgery with colectomy, abd pain a nd wound dehiscence TECHNIQUE: Axial computed tomography images of the abdomen and pelvis with intravenous contrast. S agittal and coronal reformatted images were created and reviewed. This CT exam was performed using one or more of the following dose reduction techniques: automated exposure control, adjustment of t he mA and/or kV according to patient size, and/or use of iterative reconstruction technique. COMPARISON: CT abdomen pelvis April 29, 2021. FINDINGS: Lung bases: Unremarkable. No mass. No consolidation. ABDOMEN: Liver: Unremarkable. No mass. Gallbladder and bile ducts: Contracted gallbladder without calcified stones. No ductal dilation. Pancreas: No findings to suggest acute pancreatitis. No mass visualized. No ductal dilation. Spleen: Unremarkable. No splenomegaly. Adrenals: Unremarkable. No mass. Kidneys and ureters: Unremarkable. No solid mass. No hydronephrosis. Stomach and bowel: Colon resection with left lower quadrant colostomy. Moderate stool in the meadows sverse colon. Rectal wall thickening versus artifact of incomplete distention. Small bowel dilatation is resolved compared with the prior exam. However, there are a few thi ckened small bowel loops in the left abdomen suggesting enteritis. PELVIS: Appendix: No findings to suggest acute appendicitis. Bladder: Diffuse bladder wall thickening versus artifact of incomplete distention. Reproductive: Mild prostate gland enlargement. ABDOMEN and PELVIS: Intraperitoneal space: Small amount of free fluid in the anterior abdomen, greatest in the left u pper quadrant. No definite free air or abscess. Bones/joints: Degenerative changes in the hips. No acute fracture visualized. No dislocation. Soft tissues: Infraumbilical focal laparotomy surgical site dehiscence. There is otherwise fluid in the subcutaneous soft tissues adjacent to the laparotomy skin skyler. No abscess. Vasculature: Unremarkable. No abdominal aortic aneurysm. Lymph nodes: No pathologically enlarged lymph nodes. IMPRESSION: 1. Infraumbilical focal laparotomy surgical site dehiscence. There is otherwise fluid in the subcutaneous soft tissues adjacent to the laparotomy skin skyler. No abscess. 2. Colon resection with left lower quadrant colostomy. Moderate stool in the transverse colon. Rect al wall thickening noted versus artifact of incomplete distention. Correlate clinically for rectal co litis. 3. Small bowel dilatation is resolved compared with the prior exam. However, there are a few thicke oswaldo small bowel loops in the left abdomen suggesting enteritis. 4. Small amount of free fluid in the anterior abdomen, greatest in the left upper quadrant. No defi nite free air or abscess. 5. Diffuse bladder wall thickening versus artifact of incomplete distention. Correlate clinically f or cystitis/UTI. 6. Additional non-emergent findings as above. Electronically signed by: Dorina Cohen MD 05/16/2021 5:02 AM CDT Due to temporary technical issues with the PACS/Fluency reporting system, reports are being signed by the in house radiologists without review as a courtesy to insure prompt reporting. The interpreting radiologist is fully responsible for the content of the report.
== END 2021-05-16 05:25 | disposition home or self-care (01) ==
LOC: ER 03:07
DX: T81.31XA Disruption of external operation (surgical) wound, not elsewhere classified, initial encounter (principal); L03.311 Cellulitis of abdominal wall; F17.210 Nicotine dependence, cigarettes, uncomplicated; I10 Essential (primary) hypertension; Z21 Asymptomatic human immunodeficiency virus [HIV] infection status; Z88.5 Allergy status to narcotic agent; Z88.8 Allergy status to other drugs, medicaments and biological substances
CPT/HCPCS: 96365; 96361; 85025; 80048; 36415; 84145; 74177; 99284; Q9967; J7030

== ENCOUNTER 2021-05-16 12:53 | Emergency (ER) | payer OTHER ==
--- OUTSIDE RECORDS SUMMARY | 2021-05-16 13:02 | XMS REPORT | Continuity of Care Document ---
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 01-16 Me thodi ciency ciency 00:00: st virus virus 00 infection) infection) Schizophre Schizophre Disease Active H radha junito junito 01-16 Methodi 00:00: st 00 Dyspnea Dyspnea Disease Active [place] 01-15 Methodi 00:00: st 00 Rash Rash Disease Active [place] 01-15 Methodi 00:00: st 00 Lump or Lump or Disease Active 2009-11 Peña mass in mass in Health breast _ breast _ 00:00: lt lt 00 Refraction Refraction Disease Active 2009-11 H arris error error Health 00:00: 00 Obesity Obesity Disease Active 2009-11 Peña 0 Health 00:00: 00 Nicotine Nicotine Disease Active 2009-11 Harri s addiction addiction Heal th 00:00: 00 Tattoo Tattoo Disease Active 2009-11 Peña 0 Health 00:00: 00 Acne Acne Disease Active 2009-11 Peña Health 00:00: 00 Health Health Disease Active 2009-11 Overview: Casey maingordon maintenanc [facility] e e 00:00: g of this examinatio examinatio 00 note n n might be different from the original. PSA\Recta l Exam : 08/23 refusedFO BT (50 + Annual):n aCholeste rol (20 + every 5 yrs):orde [id number] : naMicroal bumin: naLast Td/Dtap: orderedFl u Vaccine (Annual): 07/24Pneum ovax: naLast PPD (yearly 1-35): 06/23Diabe tic Foot Exam (Annual): naDiabeti c Eye Exam (Annual): na EKG (Over 40 yrs Old) None Unspecifie Diagnosis Active 2016-11-23 Memoria d fracture 05:14:21 l of shaft [place] of Unspecifie humerus, d fracture right arm, [...] 11/23/2016 Rosalino Martinez Schizo Schizo Disease Active [place] affective affective Heal th schizophre schizophre junito junito Bipolar Bipolar Disease Active [place] disorder disorder Health Allergies, Adverse Reactions, Alerts [...] Propensi Active [place] one ty to 3 Methodi adverse 00:00: st reaction 00 s to drug N.K.D.A. N.K.D.A. Active Info Not 2015-11 Tico vanessa Available 12-27 l 00:00: [place] 00 ziprasid DA Active [place] [facility] one 04-05 Corp[facility] 00:00: [address] Family History Family Member Diagnosis Comments Start Date Stop Date Source unknown Unknown Fam Hx Peña Hea lt Unknown Family Family History 2016-11-23 2016-11-23 Memori al [place] Member 05:14:21 05:14:21 Social History Social Habit Start Date Stop Date Quantity Comments Source Sex Assigned At [facility] History of tobacco Cigarette Smoker [facility] use Tobacco use and 2020-05-14 2020-05-14 Never used [place] exposure 00:00:00 00:00:00 [employer] Alcohol intake 2018-06-03 2018-06-03 Current [facility] es - 00:00:00 00:00:00 non-drinker of Medical Ce nter alcohol (finding) TobaccoUse: 2016-10-26 2016-10-26 [facility] 00:00:00 00:00:00 Cigarettes smoked 2010-09-09 2010-09-09 [facility] current (pack per 00:00:00 00:00:00 day) - Reported Smoking Status Start Date Stop Date Source Current every day smoker 2018-06-03 00:00:00 [facility] Medications Ordered Filled Start Stop Current [...] - 20 MG 22:01: daily. Medical capsule [address] [place] [address] Atenolol 2015-11 Yes Rosalino 1 tablet Me [...] ts Source Name Name PPD 2011-12-28 Completed [facility] 00:00:00 Tdap Tetanus, 2010-09-09 Completed [facility] th diphtheria, 00:00:00 acellular pertussis Vaccine Influenza Vaccine 2010-08-04 Completed [facility] 00:00:00 Vital Signs Vital Name Observation Time Observation Value Comments Source Weight 2016-10-26 20:00:00 [facility] Height 2016-10-26 20:00:00 [facility] Heart Rate 2016-10-26 20:00:00 [facility] Diastolic (mm Hg) 2016-10-26 20:00:00 [facility] samuel [place] Systolic (mm Hg) 2016-10-26 20:00:00 Tico Adorno Procedures This patient has no known procedures. Plan of Care Planned Activity Planned Date Details Comments Source Future Scheduled 2021-08-14 IMM Influenza Seasonal H arris Health Test 00:00:00 Oct to January (>/= 19 yrs) [code = IMM Influenza Seasonal Aug to January (>/= 19 yrs)] Future Scheduled 2021-06-14 INFLUENZA VACCINE [place] [facility] Test 00:00:00 [code = INFLUENZA VACCINE] Future [...] Test 00:00:00 (procedure) [code = Medical Center [id number]] Future Scheduled 1985 COVID-19 VACCINE (1) [facility]on [employer] Test 00:00:00 [code = COVID-19 VACCINE (1)] Future Scheduled 1985 COVID-19 Vaccine (1) [place] [facility] Test 00:00:00 [code = COVID-19 Vaccine (1)] Future Scheduled [address] [facility] - Test 00:00:00 0-64 YRS (1 of 1 - Medical C enter PPSV23) [code = PNEUMOCOCCAL VACCINE 0-64 YRS (1 of 1 - PPSV23)] Encounters Start End Encounter Admission Attending Care Care Encounter Source Date/Time Date/Time Type Type Clinicians Facility Department ID 2021-04-30 Inpatient U [facility] [id number] [facility] 02:29:00 [facility] 2020-11-17 2020-11-17 Emergency E GWEN [facility] ECC [id number] [place] 15:49:00 17:03:00 RAIN [facility] 2020-10-02 2020-10-03 Emergency E KELLEYKRUNAL Olson [facility] ECC [id number] [place] 20:43:00 00:00:00 [facility] 2020-10-01 2020-10-01 Emergency E CHAD NICOLE [facility] E[facility] [id number] [place] 03:36:00 07:10:00 Medica l [place] 2020-09-18 2020-09-18 Emergency E KRUNAL KELLEY [facility] E[facility] [id number] [place] 21:02:00 22:31:00 [facility] 2020-09-10 2020-09-10 Emergency E ELISA HAMMOND [facility] ECC [id number] [place] 01:56:00 04:21:00 [facility] 2020-05-14 2020-05-14 Emergency E [facility] [id number] Memoria 21:07:00 21:07:00 l Kyree Johnson [facility] 2020-05-14 2020-05-14 Emergency GINA [facility] [id number] [place] 00:00:00 00:00:00 DAVID 311 [facility] 2018-11-26 2018-11-26 [facility] [id number] [place] 08:23:00 08:23:00 Health 2018-06-21 2018-06-21 Outpatient C DAYAN [facility] RAD [id number] [place] 15:13:00 23:59:00 [facility] 2018-01-04 2018-01-04 Outpatient C DAYAN [facility] RAD [id number] [place] 13:20:00 23:59:00 DOUG ECHEVARRIA Zunildaa [facility] 2016-10-26 2016-10-26 Outpatient Rosalino Doherty [id number] [...] < 235 ng/mL D-DU* PRO TIME AND [id number] 21:51:00 Test Item Value Reference Range Interpretation [...] or LMW Heparin. Order Code is ANTI-XA [id number] 21:38:00 Test Item Value Reference Range Interpretation Comments CPK (test code = 32A) 188 IU/L 39-308 TROPONIN [id number] 21:38:00 Test Item Value Reference Range Interpretation Comments TROPONIN I (test code = A84) <0.015 ng/mL 0.000-0.045 COMPREHENSIVE METABOLIC [id number] 21:38:00 Test Item Value Reference Range Interpretation [...] (test code = <10 mg/dL <=10 56A) [id number] 21:29:00 Test Item Value Reference Range Interpretation [...] (test code = RBCMOR) NORMAL URINALYSIS WITH [id number] 06:41:00 Test Item Value Reference Range Interpretation [...] code = USPERM) /HPF NONE DRUGS OF [id number] 06:39:00 Test Item Value Reference Range Interpretation [...] ng/mL Barbiturates 200 ng/mL Opiates 2000 ng/mL [id number] 04:29:00 Test Item Value Reference Range Interpretation Comments ACETAMINPH (test code = 94M) <2.0 ug/mL 10.0-30.0 L COMPREHENSIVE METABOLIC [id number] 04:29:00 Test Item Value Reference Range Interpretation [...] (test code = <10 mg/dL <=10 56A) [id number] 04:21:00 Test Item Value Reference Range Interpretation [...] <10 mg/dL <=10 56A) PRO TIME AND [id number] 02:56:00 Test Item Value Reference Range Interpretation [...] Heparin. Order Code is ANTI-XA DRUGS OF [id number] 02:50:00 Test Item Value Reference Range Interpretation [...] 200 ng/mL Opiates 2000 ng/mL BRAIN NATRIURETIC [id number] 02:44:00 Test Item Value Reference Range Interpretation Comments proBNP (test code = PBNP) 533 pg/mL 0-125 H TROPONIN [id number] 02:43:00 Test Item Value Reference Range Interpretation Comments TROPONIN I (test code = A84) <0.015 ng/mL 0.000-0.045 COMPREHENSIVE METABOLIC [id number] 02:40:00 Test Item Value Reference Range Interpretation [...] (test code = 31A) 23 IU/L <=78 [id number] 02:36:00 Test Item Value Reference Range Interpretation Comments MAGNESIUM (test code = 48A) 2.3 mg/dL 1.8-2.4 LIPASE [id number] 02:35:00 Test Item Value Reference Range Interpretation Comments LIPASE (test code = 60A) 136 IU/L 73-393 URINALYSIS WITH [id number] 02:30:00 Test Item Value Reference Range Interpretation [...] in Respiratory specimen by ARMIDA with probe [id number] 13:44:24 Test Item Value Reference Range Interpretation Comments SARS coronavirus 2 RNA Not detected Not-Detected [Presence] in Respiratory specimen by ARMIDA with probe detection (test code = 15894-2) XR SPINE CERVICAL *NT*2018-06-21 15:47:21Cervical spine, 5 viewsLocation code: [id number] history: Neck pain after strainComments: AP, oblique, [...] *NT*2018-01-04 14:55:51Lumbar spine series, 5 viewsLocation Code: [id number] HISTORY: M54.5: LOW BACK PAINCOMPARISON: None.COMMENTS: AP, oblique, and lateral views of the lumbar spine demonstrate noacute fracture or malalignm ent. The soft tissues are unremarkable.IMPRESSION: No acute radiographic abnormality.XR KNEE RIGHT 3 VIEWS *NT*2018-01-04 14:55:19Right knee, 3 viewsLocation Code: [id number] HISTORY:M25.561: PAIN IN RIGHT KNEECOMMENTS: AP, lateral, and oblique views of the right knee demonstrate no acutefracture or malalignment. The soft tissuesare unremarkable.IMPRESSION: No acute radiographic abnormality.XR FOOT RIGHT COMPLETE 3V *NT*2018-01-04 14:54:55Right foot, 3 viewsLocation Code: [id number] HISTORY: M79.671: PAIN IN RIGHT FOOTCOMMENTS: AP, [...] *NT* 2018-01-04 14:53:52Right ankle, 3 viewsLocation Code: [id number] HISTORY: Pain.COMMENTS: AP, lateral, and oblique views of the right ankle demonstrate noacute fracture or malalignment. Mild medial tibiotalar arthrosis is noted. Thesoft tissues are unremarkable.IMPRESSION: No acute radiographic abnormality. Mild arthrosis.
[2021-05-16 14:28] LABS: Absolute Lymphocytes (CBC) 1.6 K/uL (0.7-4.9); Basophils % 0.4 % (0-1.3); Hematocrit 24.1 % (39.6-49.0); Lymphocytes % 13.1 % (15.3-44.8); MPV 7.3 fL (7.6-11.3); RBC Red Blood Cell Count 2.89 M/uL (4.33-5.43)
[2021-05-16 14:31] LABS: Protime INR 1.07
[2021-05-16 14:37] LABS: ALT/SGPT 23 U/L (12-78); AST/SGOT 21 U/L (15-37); Albumin 2.2 g/dL (3.4-5.0); Alkaline Phosphatase 175 U/L (45-117); BUN Blood Urea Nitrogen 19 mg/dL (7-18); Bicarbonate 27 mmol/L (21-32); Bilirubin Direct 0.1 mg/dL (0-0.2); Bilirubin Total 0.3 mg/dL (0.2-1.0); Glucose Level 88 mg/dL (74-106); Potassium 3.4 mmol/L (3.5-5.1); Protein, Total 8.2 g/dL (6.4-8.2); Sodium Level 139 mmol/L (136-145)
[2021-05-16 15:30] LABS: Urine Blood Negative (Negative); Urine Glucose Negative (Negative); Urine Protein Trace (Negative); Urine Specific Gravity 1.015 (1.005-1.030); Urine pH 5.5 (5.0-7.0)
[2021-05-16] MEDS ORDERED: NA CHLORIDE 0.9% 1,000 ML ONE (15:33)
--- NOTE | 2021-05-16 15:33 | EDPHYS ---
Physician Documentation [facility] Name: Bakari Mcintosh Age: 45 yrs Sex: Male : 1975 Arrival Date: 05/16/2021 Time: 12:57 Bed 17 Private MD: ED Physician Jean Paul James HPI: 05/16 13:27 This 45 yrs old Male presents to ER via EMS with complaints of Anxiety. pm1 13:27 The patient presents to the emergency department with anxiety. pm1 13:27 Onset: The symptoms/episode began/occurred today. Past psychiatric history: Prior pm1 diagnosis: schizophrenia. Associated signs and symptoms: Pertinent positives; chest pain, hallucinations, Pertinent negatives: homicidal ideation, shortness of breath, suicide ideation. Severity of symptoms: in the emergency department the symptoms have improved. The patient has been recently seen at the [facility] Department, for unrelated complaints, Diagnosed with disruption of external operation(surgical wound) and cellulitis. Discharged with antibiotics and he has a scheduled follow up. Historical: - Allergies: 13:05 Geodon; zb 13:05 Haldol; zb 13:05 Risperdal; zb - Home Meds: 13:05 amlodipine oral [Active]; Hydrocodone-Acetaminophen 5/500 Oral [Active]; Pepcid Oral zb [Active]; - PMHx: 13:05 brown reculse bite; HERPES; genital and cold sores; HIV; Hypertension; schizoaffective; zb - PSHx: 13:05 Colostomy; zb - Immunization history:: Adult Immunizations up to date. - Social history:: Smoking status: Patient reports the use of cigarette tobacco products, smokes one pack cigarettes per day. ROS: 13:27 Constitutional: Negative for fever, chills, and weight loss, Eyes: Negative for injury, pm1 pain, redness, and discharge, Neck: Negative for injury, pain, and swelling, Cardiovascular: Negative for chest pain, palpitations, and edema, Respiratory: Negative for shortness of breath, cough, wheezing, and pleuritic chest pain. 13:27 Back: Negative for injury and pain, MS/Extremity: Negative for injury and deformity, Skin: Negative for injury, rash, and discoloration, Neuro: Negative for headache, weakness, numbness, tingling, and seizure. 13:27 Abdomen/GI: Positive for open wound and lower abdominal pain, Negative for nausea, vomiting, and diarrhea. 13:27 Psych: Positive for anxiety, Negative for homicidal ideation, suicide gesture, suicidal ideation. Exam: 13:27 Constitutional: This is a well developed, well nourished patient who is awake, alert, pm1 and in no acute distress. Head/Face: Normocephalic, atraumatic. 13:27 MS/ Extremity: Pulses equal, no cyanosis. Neurovascular intact. Full, normal range of motion. 13:27 Cardiovascular: Exam negative for acute changes, Rate: normal, Rhythm: regular, Pulses: no pulse deficits are appreciated. 13:27 Respiratory: Exam negative for acute changes, respiratory distress, shortness of breath. 13:27 Abdomen/GI: Inspection: lower midline abdominal wound with approximately 3 cm dehiscence. Clear/white discharge. No foul odor, no peritoneal signs, Palpation: abdomen is soft and non-tender, in all quadrants. 13:27 Skin: warm, dry. 13:27 Neuro: Orientation: is normal, to person, place, time \T\ situation. 13:27 Psych: Behavior/mood is cooperative, Affect is calm, Oriented to person, place, time, Delusions/hallucinations are not present. Vital Signs: 12:58 BP 165 / 97; Pulse 88; Resp 16; Temp 98.6; Pulse Ox 99% on R/A; Weight 72.57 kg; Height zb 5 ft. 11 in. (180.34 cm); Pain 10/10; 14:29 BP 166 / 86; Pulse 88; Resp 18; Pulse Ox 96% on R/A; zb 12:58 Body Mass Index 22.32 (72.57 kg, 180.34 cm) zb MDM: 13:19 Patient medically screened. pm1 15:40 ED course: Informed by nurse that the patient eloped. I was pending urine collection pm1 and results at that time. 05/16 13:26 Order name: Acetaminophen pm1 05/16 13:26 Order name: Basic Metabolic Panel pm1 05/16 13:26 Order name: CBC with Diff pm1 05/16 13:26 Order name: ETOH Level; Complete Time: 14:33 pm1 05/16 13:26 Order name: Hepatic Function; Complete Time: 14:39 pm1 05/16 13:26 Order name: PT-INR; Complete Time: 14:33 pm1 05/16 13:26 Order name: Ptt, Activated; Complete Time: 14:33 pm1 05/16 13:26 Order name: Salicylate; Complete Time: 14:57 pm1 05/16 13:26 Order name: Urine Drug Screen pm1 05/16 13:27 Order name: Acetaminophen Level; Complete Time: 14:39 EDMS 05/16 13:27 Order name: Basic Metabolic Panel; Complete Time: 14:39 EDMS 05/16 13:27 Order name: CBC with Automated Diff; Complete Time: 14:30 EDMS 05/16 15:29 Order name: Urine Dipstick-Ancillary; Complete Time: 15:48 EDMS 05/16 13:26 Order name: EKG; Complete Time: 13:27 pm1 05/16 13:26 Order name: EKG - Nurse/Tech; Complete Time: 14:28 pm1 05/16 13:26 Order name: IV Saline Lock; Complete Time: 14:28 pm1 05/16 13:26 Order name: Labs collected and sent; Complete Time: 14:28 pm1 Administered Medications: No medications were administered Disposition Summary: 05/16/21 15:33 Eloped Disposition: after being seen by provider zb Reason: unknown zb Discharge Instructions: - Discharge Summary Sheet pm1 - Generalized Anxiety Disorder, Adult pm1 Addendum: 05/18/2021 13:35 Co-signature as Attending Physician, Jean Paul James MD I agree with the assessment and k dr plan of care. Signatures: Dispatcher [employer] Jean Paul Bustos MD MD kdr Marinas, Patrick, NP ABSEILING INSTRUCTOR pm1 Nia Hagen RN RN zb
--- NOTE | 2021-05-16 15:33 | ER ---
Nurse's Notes [facility] Name: Bakari Mcintosh Age: 45 yrs Sex: Male : 1975 Arrival Date: 05/16/2021 Time: 12:57 Bed 17 Private MD: Diagnosis: Presentation: 05/16 12:58 Chief complaint: EMS states: patient called from home. stating that he was anxious and zb felt like he was having chest pain. patient also stated that he felt like something was going down this throat. history of schizophrenia. Patient was here yesterday for the anxiety attack as well. Coronavirus screen: At this time, the client does not indicate any symptoms associated with coronavirus-19. Ebola Screen: No symptoms or risks identified at this time. Initial Sepsis Screen: Does the patient meet any 2 criteria? No. Patient's initial sepsis screen is negative. Does the patient have a suspected source of infection? No. Patient's initial sepsis screen is negative. Risk Assessment: Do you want to hurt yourself or someone else? Patient reports no desire to harm self or others. Onset of symptoms was May 16, 2021. 12:58 Acuity: FREDERIC 3 zb 12:58 Method Of Arrival: EMS: [facility] zb Triage Assessment: 13:06 Pain: Complains of pain in chest Pain currently is 10 out of 10 on a pain scale. zb Quality of pain is described as aching, heavy, pressure, Pain began 2 hours ago. Is continuous. EENT:. Neuro: Level of Consciousness is awake, alert, obeys commands, Oriented to person, place, time, situation. Cardiovascular: Reports chest pain, nausea, Heart tones S1 S2 present Patient's skin is warm and dry. Respiratory: Airway is patent is compromised Respiratory effort is even, unlabored, Respiratory pattern is regular, symmetrical, Breath sounds are clear bilaterally. Onset: The symptoms/episode began/occurred. GI: Abdomen is flat, Ileostomy site is clean and dry. Ostomy appliance is intact. Open wound to supra pubic area. Derm: Skin is intact, is healthy with good turgor, Skin is dry, Skin is normal, Skin temperature is warm. Musculoskeletal: Range of motion: intact in all extremities. Historical: - Allergies: 13:05 Geodon; zb 13:05 Haldol; zb 13:05 Risperdal; zb - Home Meds: 13:05 amlodipine oral [Active]; Hydrocodone-Acetaminophen 5/500 Oral [Active]; Pepcid Oral zb [Active]; - PMHx: 13:05 lexie reculse bite; HERPES; genital and cold sores; HIV; Hypertension; schizoaffective; zb - PSHx: 13:05 Colostomy; zb - Immunization history:: Adult Immunizations up to date. - Social history:: Smoking status: Patient reports the use of cigarette tobacco products, smokes one pack cigarettes per day. Screenin:09 Abuse screen: Denies threats or abuse. Denies injuries from another. Nutritional zb screening: No deficits noted. Tuberculosis screening: No symptoms or risk factors identified. Fall Risk None identified. Assessment: 13:08 Reassessment: See triage assessment. zb 14:29 Reassessment: Patient appears in no apparent distress at this time. Patient and/or zb family updated on plan of care and expected duration. Pain level reassessed. Patient is alert, oriented x 3, equal unlabored respirations, skin warm/dry/pink. no c/o at this time. patient lying in bed at this time. denies SI/HI at this time. 15:30 Reassessment: patient walked out. allowed me to talk out IV. stated he is leaving. IV zb removed cathether intact. patient ambulated out. left shoes. denies SI/HI. Vital Signs: 12:58 BP 165 / 97; Pulse 88; Resp 16; Temp 98.6; Pulse Ox 99% on R/A; Weight 72.57 kg; Height zb 5 ft. 11 in. (180.34 cm); Pain 10/10; 14:29 BP 166 / 86; Pulse 88; Resp 18; Pulse Ox 96% on R/A; zb 12:58 Body Mass Index 22.32 (72.57 kg, 180.34 cm) zb ED Course: 12:57 Patient arrived in ED. zb 13:05 Triage completed. zb 13:07 Abner Amor NP is PHCP. pm1 13:07 Jean Paul James MD is Attending Physician. pm1 13:09 Nia Hagen RN is Primary Nurse. zb 14:00 Patient has correct armband on for positive identification. satellite project site monitor on. Pulse zb ox on. NIBP on. Door closed. Noise minimized. 14:04 Arm band placed on. zb 14:12 Initial lab(s) drawn, by me, sent to lab. Inserted saline lock: 20 gauge in right mh5 antecubital area, using aseptic technique. Blood collected. 15:08 EKG done, by ED staff, reviewed by Jean Paul James MD. [facility] 15:32 IV discontinued, intact, bleeding controlled, No redness/swelling at site. Pressure zb dressing applied. Administered Medications: No medications were administered Outcome: 15:32 Condition: stable zb 15:33 Patient left the ED. zb 17:36 Eloped Time discovered patient gone: May 16, 2021 at 15:33 zb Signatures: Abner Amor, WARP STARTER WARP STARTER pm1 Jacqueline Carrillo 5 Nia Hagen RN RN zb Corrections: (The following items were deleted from the chart) 14:30 14:29 Reassessment: Patient appears in no apparent distress at this time. Patient zb and/or family updated on plan of care and expected duration. Pain level reassessed. Patient is alert, oriented x 3, equal unlabored respirations, skin warm/dry/pink. no c/o at this time. patient lying in bed at this time. zb
[2021-05-16 16:01] LABS: Barbiturates NEGATIVE (NEGATIVE); Benzodiazepines NEGATIVE (NEGATIVE); Cocaine NEGATIVE (NEGATIVE); METHAMPHETAM POSITIVE (NEGATIVE); Methadone NEGATIVE (NEGATIVE); Opiates POSITIVE (NEGATIVE); Phencyclidine NEGATIVE (NEGATIVE); THC Cannibis POSITIVE (NEGATIVE)
[2021-05-16 16:09] VITALS: TEMP 98.6
[2021-05-16 16:10] VITALS: BP 166/86; O2SAT 96
--- NOTE | 2021-05-17 13:47 | EKG ---
Test Date: 2021-05-16 Test Time: 14:19:17 [employer]: MARLEE MEASUREMENT RESULTS: Intervals: Rate: 88 WA: 162 QRSD: 102 QT: 368 QTc: 445 [place]: P: 69 WA: 162 QRS: 69 T: 76 INTERPRETIVE STATEMENTS: Sinus rhythm with premature atrial complexes Voltage criteria for left ventricular hypertrophy Abnormal ECG Compared to ECG 05/12/2020 19:42:42 Atrial premature complex(es) now present Electronically Signed On 05-17-21 13:45:37 CDT by Jesus Barkley
== END 2021-05-16 15:33 | disposition left against medical advice (07) ==
LOC: ER 12:53
DX: F41.9 Anxiety disorder, unspecified (principal); I10 Essential (primary) hypertension; F17.210 Nicotine dependence, cigarettes, uncomplicated; Z88.5 Allergy status to narcotic agent; Z88.8 Allergy status to other drugs, medicaments and biological substances
CPT/HCPCS: 93005; 85025; 80048; 36415; 80320; 80329 ×2; 85610; 80076; 85730; 81003; 80307; 99284; J7030